=== PATIENT | male | born 1970 | race Caucasian/White ===

== ENCOUNTER 2017-12-07 07:30 | Inpatient (IN) | payer OTHER ==
[~2017-12-07 07:30] MED LIST: Buffered Lidocaine 0.9% SYRIN* 5 ML/SYR SYRINGE INTRADERM ONE; DiMENhydriNATE IV* 50 MG/ML VIAL IV PUSH PRN; Famotidine TAB* 20 MG PO ONE; Morphine INJ* 2 MG/ML 1 ML CARPUJECT IV PRN; Naloxone* 0.4 MG/ML 1 ML VIAL IV PRN; PROCHLORPERAZINE INJ 5 MG/ML 2 ML VIAL IV PRN; Scopolamine 1.5 mg* PATCH TRANSDERM ONE; fentaNYL* 50 MCG/ML 2 ML VIAL (100 MCG VIAL) IV PRN
[2017-12-07] MEDS ORDERED: Heparin VIAL(*) 5000 UNITS/ML VIAL (FIVE THOUSAND) ONE (07:56)
[2017-12-07] MEDS ORDERED: Scopolamine 1.5 mg* PATCH ONE (07:56)
[2017-12-07] MEDS ORDERED: Clindamycin 900 MG IVPREMIX(* 900 MG/50 ML SDV IV ONE (07:56)
[2017-12-07] MEDS ORDERED: Famotidine TAB* 20 MG ONE (07:56)
[2017-12-07] MEDS ORDERED: Ciprofloxacin 400MG IVPREMIX(* 400 MG/200 ML BAG ONE (07:56)
[2017-12-07] MEDS ORDERED: Atracurium* 10 MG/ML 10 ML VIAL ONE (08:29)
[2017-12-07] MEDS ORDERED: fentaNYL* 50 MCG/ML 5 ML VIAL (250 MCG VIAL) ONE (08:29)
[2017-12-07] MEDS ORDERED: Midazolam* 1 MG/ML 5 ML VIAL (5 MG) ONE (08:29)
[2017-12-07] MEDS ORDERED: Methylene Blue 0.5 %* 50 MG/10 ML AMP IV ONE (09:06)
[2017-12-07] MEDS ORDERED: Bupivacaine 0.25% SDV* 30 ML ONE (09:06)
[2017-12-07] MEDS ORDERED: PROCHLORPERAZINE INJ 5 MG/ML 2 ML VIAL ONE (09:52)
[2017-12-07] MEDS ORDERED: Glycopyrrolate IV* 0.2 MG/ML 1 ML VIAL ONE (09:52)
[2017-12-07] MEDS ORDERED: Propofol* 10 MG/ML 20 ML BTL IV PUSH ONE (09:52)
[2017-12-07] MEDS ORDERED: Ondansetron INJ* 2 MG/ML VIAL ONE (09:52)
[2017-12-07] MEDS ORDERED: Lidocaine 2% PF * 5 ML VIAL ONE (09:52)
[2017-12-07] MEDS ORDERED: Morphine INJ* 10 MG/ML 1 ML CARPUJECT ONE ×2 (09:58→11:47)
[2017-12-07] MEDS ORDERED: Metoprolol Tartrate IV* 1 MG/ML 5 ML VIAL ONE ×2 (10:58→13:08)
[2017-12-07] MEDS ORDERED: Labetalol IV* 5 MG/ML 20 ML VIAL ONE (10:58)
[2017-12-07] MEDS ORDERED: hydrALAZINE IV* 20 MG/ML VIAL ONE (11:08)
[2017-12-07] MEDS ORDERED: Desflurane* 240 ML INH ONE (13:29)
[2017-12-07] MEDS ORDERED: diPHENhydraMINE IV* 50 MG/ML 1 ml VIAL (BENADRYL) SLOW PUSH PRN (14:57)
--- NOTE | 2017-12-07 14:57 | BRIEFOPN ---
Brief Operative Note - Surgery Procedures: Procedures Pre-OP Diagnoses: Clinically severe obesity Post-op Diagnosis: same, hiatal hernia Procedure: Laparoscopic Colin an Y gastric bypass, repair of hiatal hernia Surgeon: Ovidio Asst: Viv Anethesia: EZ Orchard EBL: 100cc IVF: 2900cc LR Specimen: none Drains: #10 RASHMI Figueroa to gravity
[2017-12-07] MEDS ORDERED: Mometasone/Formoter 200/5 MDI INH PRN (15:01)
[2017-12-07] MEDS ORDERED: Dextrose 50% Syringe 50 ML* 25 GM/50 ML SYRINGE IV PUSH PRN (15:01)
[2017-12-07] MEDS ORDERED: Naloxone* 0.4 MG/ML 10 ML VIAL ONE (15:07)
[2017-12-07] MEDS ORDERED: Albuterol 2.5 MG/3 ML NEB.SOL* (0.083%) ONE (15:11)
[2017-12-07] MEDS ORDERED: fentaNYL* 50 MCG/ML 2 ML VIAL (100 MCG VIAL) ONE (15:25)
[2017-12-07] MEDS: Ketorolac INJ* 30 MG/ML 1 ML VIAL IV PRN (17:53)
[2017-12-07] MEDS: Insulin LISPRO* 1 UNITS UNIT SUBCUT SCH ×2 (19:32→19:41)
--- NOTE | 2017-12-07 19:43 | OP ---
CC: Dr. Francisco Mcc[facility], [facility] OPERATIVE REPORT: DATE OF OPERATION: 12/07/17 DATE OF : 66 SURGEON: Derick Nolan MD SOCIOLOGY ADJUNCT INSTRUCTOR: SERENA Moreno ANESTHESIOLOGIST: Marcial Prasad MD ANESTHESIA: General. PRE-OP DIAGNOSES: 1. Clinically severe obesity. 2. Type 2 diabetes. 3. Hypertension. 4. Obstructive sleep apnea. 5. Gastroesophageal reflux disease. POST-OP DIAGNOSES: 1. Clinically severe obesity. 2. Type 2 diabetes. 3. Hypertension. 4. Obstructive sleep apnea. 5. Gastroesophageal reflux disease. 6. Hiatal hernia. OPERATIVE PROCEDURE: Laparoscopic Colin-en-Y gastric bypass procedure, lysis of adhesions, repair of hiatal hernia. ESTIMATED BLOOD LOSS: 100 cc. SPECIMEN: None. IV FLUIDS: Crystalloids, 2800. URINE OUTPUT: Via Figueroa over 300 cc. DRAINS: A #10 RASHMI drain left at the gastrojejunostomy. DESCRIPTION OF PROCEDURE: The patient was identified in the preoperative area, brought to the OR, pl aced on the operating table in supine position. Preoperative antibiotics were given, sequential comp ression devices were placed on bilateral lower extremities. General anesthesia was induced. The pat ient's abdomen was prepped and draped in a standard surgical fashion. A time-out was performed. A subcostal incision made on the left upper quadrant just at mid clavicular line 2 fingerbreadths bel ow the ribcage. This was deepened down the anterior fascia, which was elevated and a Veress needle w as inserted into the abdominal cavity, which was then allowed to insufflate to a pressure of 15 mmHg. We then next placed a 12-mm trocar through this site and camera was inserted. Review of the abdome n showed no evidence of injury from the trocar insertion or the Veress needle. We did see omental ad hesions to the anterior abdominal wall, where the patient underwent umbilical hernia repair and resec tion of the hernia as an infant. A 5-mm trocar was then placed in the left lateral quadrant and both blunt and sharp dissection was utilized to take down these attachments to better visualize the right side of the abdomen. Additional trocars were then placed in the following positions: A 12-mm along the upper midline, a 1 2 mm at the right upper quadrant, and 5 mm in the right upper quadrant. Attention was turned to the abdomen. The omentum was reflected superiorly. Transverse colon identifi ed. This was invested in a significant amount of adipose tissue, but we were able to identify the li gament of Treitz. The small bowel at this site was grasped and we counted off antegrade 50 cm. The small bowel was resected at this portion that will become the biliopancreatic limb, underwent cauteri zation to create an enterotomy. Next, the distal portion of this transected area was grasped and we ran antegrade throughout the cour se of the small bowel to ensure we were in the appropriate positioning given the patient's history of abdominal surgery as a 9-day-old, appeared intact. We did not see any rotation of the intestine. W e then came back to our initial staple line. We counted off 100 cm and created another enterotomy an d created jejunojejunostomy with a 60-mm ramírez FLORENTINO stapling device. The common defect was closed with interrupted 2-0 silk sutures in standard fashion and we closed the defect with similar sutures. Next, the table was placed in a reverse Trendelenburg. Subxiphoid incision was made and the Nathanso n retractor was inserted through this incision and the liver was retracted anterior into the right. This exposed the gastroesophageal fat pad, which extended into a hiatal hernia. We grasped this fat pad and dissected it free taking it with LigaSure device. We were able to reduce the stomach into th e abdomen and most of the contents of the hernia were proximal stomach and significant amount of fat pad which was dissected free. So, we removed but not sent for specimen. Next, we identified the left melo. We took short gastrics at this superior aspect to better expose t his crura. We extended our incision over the crura until we identified the right side as well. The pars flaccida was opened up and dissection was performed in standard fashion to expose this. A windo w was made at the posterior aspect of the stomach and a Janeth drain was applied in this. This gave us ability to grasp the stomach and bring it inferiorly. We took down the sac off the left side of the abdomen and then we were able to clear off the posterio r attachments to identify as best the defect. Approximately 4-cm 2 posterior stitches were placed us ing #1 Ti-Cron sutures. We did this without placing bougie. Next, the retrogastric tunnel was made along the lesser curvature. A 45-mm ramírez FLORENTINO stapling device w as fired at this. Two additional 60-mm FLORENTINO stapling devices were fired to create the stomach pouch. This was a short pouch. We just took the first staple line more laterally before we came in toward the crura. We did this while the Josr tube was into the stomach pouch to assure the sizing. Next, the small bowel Colin limb was identified. It was grasped and brought up towards the gastric po uch. We decided to split the omentum to allow for better positioning. This was performed with LigaS ure device. Once this omentum was split, we then brought the Colin limb up to the gastric pouch again and then waqar regina stay sutures with 2-0 silk sutures using 4 in all. Over the Josr tube, a gastrotomy was made an d an enterotomy was additionally made. A 30-mm ramírez FLORENTINO stapling device was used to mate these. This was fired approximately 2.5 cm of the device. We then closed the common defect with 3-0 silk suture s in a figure-of-8 fashion. Next, the Josr tube was passed through the anastomosis. This passed easily. We clamped the bowel d istally and performed a methylene blue dye test distending the proximal Colin limb with the blue dye. We backed out the Josr tube into the stomach pouch. No blue dye was appreciated after placing a ga uze behind it. We also placed the gauze up by the proximal stomach where we had performed the hiatal hernia dissection and there was no evidence of blue dye at this site either. The Josr tube was the n removed. We placed a #10 RASHMI drain into the abdomen and brought out through the left lateral most p ort site and sutured to the skin with 3-0 Surgipro sutures. This lied right on top of the gastric ed ge. We did also pull some of the gastric fat pad that had been in the hernia sac and sutured this to the edge of the cut end of the proximal Colin limb at its initial staple line. This placed this fat pad clearly over the anastomosis. The RASHMI drain was placed within it though. The Leann retractor was removed. The abdomen was placed back to the neutral. There was some blood in the abdomen, but this was suctioned off and no active bleeding was encountered. No enteric contents were encountered. We appreciated the jejunostomy again and it appeared intact, and we allowed the abdomen to collapse . Trocars were removed under direct vision and aside from the RASHMI exit site, all the incisions were r eapproximated with 4-0 Monocryl subcuticular sutures followed by sterile dressing. The patient was w oken up in the OR and transferred to the PACU in stable condition. The patient was returned to the r ecovery room. [id number]/[facility] #: [id number]
[2017-12-07] MEDS ORDERED: NS 0.9% 1000 ML* 1,000 ML IV ONE (19:55)
[2017-12-07] MEDS: Famotidine IV* 10 MG/ML 2 ML (20 mg) IV SLOW PU SCH (20:08)
[2017-12-07] MEDS: LR @ 150 MLS/HR IV SCH (21:29)
[2017-12-07] MEDS: Heparin VIAL(*) 5000 UNITS/ML VIAL (FIVE THOUSAND) SUBCUT SCH (22:17)
[2017-12-07] MEDS: Morphine VIAL* 4 MG/ML VIAL (1 ml vial) IV PRN (22:31)
[2017-12-08] MEDS: Insulin LISPRO* 1 UNITS UNIT SUBCUT SCH ×4 (00:56→18:07)
[2017-12-08] MEDS: Ketorolac INJ* 30 MG/ML 1 ML VIAL IV PRN ×4 (03:29→23:31)
[2017-12-08] MEDS: LR @ 150 MLS/HR IV SCH ×2 (03:36→11:31)
[2017-12-08] MEDS: Morphine VIAL* 4 MG/ML VIAL (1 ml vial) IV PRN (06:26)
[2017-12-08] MEDS: Heparin VIAL(*) 5000 UNITS/ML VIAL (FIVE THOUSAND) SUBCUT SCH ×3 (06:31→20:47)
[2017-12-08 06:45] LABS: ABS Basophils 0 10^3/ul (0-0.2); ABS Eosinophils 0.1 10^3/ul (0-0.6); ABS Lymphocytes 1.7 10^3/ul (1.0-4.8); ABS Monocytes 0.9 10^3/ul (0-0.8); ABS Neutrophils 7.8 10^3/ul (1.5-7.7); ABS Nucleated RBC 0 10^3/ul; Eosinophil % 0.9 % (0-6); Hematocrit 36 % (42-52); Hemoglobin 12.3 g/dl (14.0-18.0); Lymphocyte % 16.6 % (25-47); Mean Corpuscular HGB Conc 35 g/dl (31-36); Mean Corpuscular Hemoglobin 31 pg (27-31); Mean Corpuscular Volume 89 fL (80-94); Mean Platelet Volume 8.6 um3 (7.4-10.4); Nucleated Red Blood Cells % 0; Platelet Count 176 10^3/ul (150-450); Red Blood Count 4.01 10^6/ul (4.0-5.4); Red Cell Distribution Width 14 % (10.5-15); White Blood Count 10.5 10^3/ul (3.5-10.8)
[2017-12-08 07:10] LABS: EGFR Non-African American 84.3 (>60)
--- NOTE | 2017-12-08 08:28 | PN ---
Progress Note - Progress Note Date of Service: 12/08/17 SOAP: Subjective: Pt seen and examined. Feels well. Requiring O2 face mask abdo pain treated with narcotics Objective: af vss Tmax 101 Uo good lungs decr BS abdo: soft/ distended/ tender at epigastrum RASHMI serosang LUQ dressing bloody no calf tenderness labs noted Assessment: POD 1 rygb, ICU for respiratory care Plan: UGI trnasfer to floor d/c pollack strict I/Os
[2017-12-08] MEDS: Famotidine IV* 10 MG/ML 2 ML (20 mg) IV SLOW PU SCH ×2 (10:40→20:47)
--- NOTE | 2017-12-08 10:42 | RAD ---
INDICATION: Post Colin-en-Y gastric bypass and hiatal hernia repair. Assess for enteric leak. COMPARISON: April 05, 2017 TECHNIQUE: 0.3 minutes fluoroscopy. The patient swallowed Gastrografin in standing position. FINDINGS: Contrast passes from the esophagus to the gastric pouch and jejunal limb without delay. No enteric leak visualized. Suture lines extending LEFT lateral noted. Surgical drain in place. No hiatal hernia visualized. IMPRESSION: No evidence for enteric leak post Colin-en-Y gastric bypass. CPT II Codes: G9500
--- NOTE | 2017-12-08 11:28 | PN ---
Progress Note - Progress Note Date of Service: 12/08/17 Note: Subjective: Mr. Arvizu is POD#1 from a hiatal hernia repair and serenity-en-y. Doing well with minimal pain at this time. Expressed to me that he was thirsty, and nurse did give him approximately 3 ounces of water prior to my interview and exam. Denies N/V. Figueroa was d/c this morning and pt. has not urinated quite yet. Has done minimal ambulation but plans to do more today. Pt. denies fevers, chills, CP, palpitations, coughing, wheezing, SOB. Current Medications Hydrocodone Bitart/Acetaminophen (Nortab 7.5/325 Liq*) 15 ml PO Q6H PRN PRN Reason: PAIN Dextrose (D50w Syringe 50 Ml*) 12.5 gm IV PUSH .FOR FS < 60 - SS PRN PRN Reason: FS < 60 Diphenhydramine HCl (Benadryl Iv*) 25 mg SLOW PUSH Q6H PRN PRN Reason: ITCHING Famotidine (Pepcid Iv*) 20 mg IV SLOW PU BID BAYRON Last Admin: 12/08/17 10:40 Dose: 20 mg Heparin Sodium (Porcine) (Heparin Vial(*)) 5,000 units SUBCUT Q8HR BAYRON Last Admin: 12/08/17 06:31 Dose: 5,000 units Potassium Chloride/Dextrose (D5w 1/2 Ns Kcl 20 Meq 1000 Ml*) 1,000 mls @ 125 mls/hr IV PER RATE BAYRON Lactated Ringer's (Lactated Ringers 1000 Ml Bag*) 1,000 mls @ 150 mls/hr IV PER RATE BAYRON Stop: 12/08/17 15:00 Last Admin: 12/08/17 11:31 Dose: 150 mls/hr Insulin Human Lispro (Humalog*) 0 units SUBCUT Q6HR BAYRON PRN Reason: Protocol Last Admin: 12/08/17 06:31 Dose: 2 units Ketorolac Tromethamine (Toradol Inj*) 30 mg IV Q6H PRN PRN Reason: PAIN Stop: 12/09/17 14:59 Last Admin: 12/08/17 10:40 Dose: 30 mg Mometasone Furoate/Formoterol Fumar (Dulera 200/5 Mdi*) 2 puff INH BID PRN; Protocol PRN Reason: DIFFICULTY BREATHING Last Admin: 12/07/17 21:02 Dose: 2 puff Morphine Sulfate (Morphine Vial*) 3 mg IV Q5M PRN PRN Reason: PAIN - SEVERE Last Admin: 12/08/17 06:26 Dose: 3 mg Pharmacy Profile Note (Scopolamine Patch Remove*) 1 note PATCH OFF ONCE ONE Stop: 12/10/17 06:01 Objective: Vital Signs - 8 hr 12/08/17 12/08/17 12/08/17 03:48 04:00 04:01 Temperature 99.2 F Pulse Rate 88 85 Respiratory 15 17 Rate Blood Pressure 115/70 (mmHg) O2 Sat by Pulse 93 91 95 Oximetry 12/08/17 12/08/17 12/08/17 05:00 05:01 06:00 Temperature Pulse Rate 83 91 88 Respiratory 16 18 22 Rate Blood Pressure 105/74 114/72 (mmHg) O2 Sat by Pulse 92 95 95 Oximetry 12/08/17 12/08/17 12/08/17 06:26 07:00 08:00 Temperature 99.2 F Pulse Rate 83 Respiratory 26 14 Rate Blood Pressure (mmHg) O2 Sat by Pulse 95 Oximetry General: Pleasant, sitting up in bed in NAD. CV: RRR w/o MRG. Resp: CTAB w/o RRW. GI: Abdomen is soft, non-distended and is minimally tender to light palpation. BS throughout. Extremities: w/o edema Assessment & Plan: Mr. Arvizu is POD#1 from a hiatal hernia repair and serenity-en- y. Doing well. Will likely begin clear liquids today. Encourage ambulation.
[2017-12-08] MEDS: HYDROcodone/ACET. 7.5/325 LIQ* 15 ML UDC PO PRN ×2 (14:50→20:45)
[2017-12-08] MEDS: D5W 1/2 NS KCl 20 Meq 1000 ML* 1,000 ML IV SCH ×2 (14:54→23:03)
[2017-12-09] MEDS: Insulin LISPRO* 1 UNITS UNIT SUBCUT SCH ×3 (00:31→12:15)
[2017-12-09] MEDS: HYDROcodone/ACET. 7.5/325 LIQ* 15 ML UDC PO PRN ×2 (03:29→09:50)
[2017-12-09] MEDS: Heparin VIAL(*) 5000 UNITS/ML VIAL (FIVE THOUSAND) SUBCUT SCH (06:15)
[2017-12-09] MEDS: Ketorolac INJ* 30 MG/ML 1 ML VIAL IV PRN (06:28)
[2017-12-09] MEDS: D5W 1/2 NS KCl 20 Meq 1000 ML* 1,000 ML IV SCH (06:30)
[2017-12-09] MEDS: Famotidine IV* 10 MG/ML 2 ML (20 mg) IV SLOW PU SCH (09:50)
[2017-12-09 13:37] VITALS: BP 117/77
[2017-12-10] MEDS ORDERED: Scopolamine PATCH Remove* 1 NOTE MISC PATCH OFF ONE (06:00)
--- NOTE | 2017-12-14 12:33 | DS ---
CC: Dr. Francisco Mccarthy; [facility] Metabolic and Bariatric [facility] * DATE OF ADMISSION: 12/07/2017. DATE OF DISCHARGE: 12/09/2017. The patient is also known as Starr. HOSPITAL COURSE: Ms. Arvizu is a 47-year-old male transitioning to female who presented for same day surgery and underwent a laparoscopic gastric bypass procedure. At the time of surgery, the patient was noted to have a hiatal hernia. This was repaired as well. In the postoperative period, the patient remained on the Short Stay Surgical Unit with a RASHMI drain. Her diet was advanced on postoperative day one after undergoing a normal upper GI study. By postoperative day two, the patient was doing well and was ready for discharge home. I did discharge her with a RASHMI drain with planned follow-up at the [facility] for Metabolic and Bariatric Surgery office on the following week. The patient was given discharge instructions. [id number]/[facility] #: [id number] MTDD
== END 2017-12-09 12:25 | disposition home or self-care (01) | DRG 403 ==
LOC: AA 07:46 → EDSTATUS 10:00 → ICU 17:30 → SSU 12-08 14:12
PROVIDERS: ADMIT Surgery; ATTEND Surgery
PROC: 0BQT4ZZ Repair Diaphragm, Percutaneous Endoscopic Approach (ICD-10-PCS; 2017-12-07)
PROC: 0D164ZA Bypass Stomach to Jejunum, Percutaneous Endoscopic Approach (ICD-10-PCS; principal; 2017-12-07 09:30)
DX: E66.01 Morbid (severe) obesity due to excess calories (principal); E11.9 Type 2 diabetes mellitus without complications; I10 Essential (primary) hypertension; K44.9 Diaphragmatic hernia without obstruction or gangrene; K21.9 Gastro-esophageal reflux disease without esophagitis; J45.909 Unspecified asthma, uncomplicated; G47.33 Obstructive sleep apnea (adult) (pediatric); M54.9 Dorsalgia, unspecified; Z88.0 Allergy status to penicillin; Z80.8 Family history of malignant neoplasm of other organs or systems; Z83.3 Family history of diabetes mellitus; Z82.49 Family history of ischemic heart disease and other diseases of the circulatory system; Z72.89 Other problems related to lifestyle; Z87.891 Personal history of nicotine dependence; Z68.41 Body mass index [BMI] 40.0-44.9, adult
CPT/HCPCS: 36415; 74246; 80048; 85025; 87641; 94640; A9270-GY; C1776; J0360; J0744; J0780; J1644; J1885; J2250; J2270; J2310; J2405; J2704; J3010; J3490

== ENCOUNTER 2017-12-25 21:04 | Emergency (ER) | payer OTHER ==
[2017-12-25] MEDS ORDERED: oxyCODONE TAB* 5 MG TAB PO ONE (21:39)
--- NOTE | 2017-12-26 00:28 | ED ---
Tyler De Anda Gabriel, scribed for Handy Downey MD on 12/25/17 at 2141 . Abdominal Pain/Male - HPI Summary HPI Summary: This patient is a 47 year old M presenting to [facility] with a chief complaint of ABD pain after he lifted 40lbs of laundry this morning at 0930. Pt had hernia repair and gastric bypass 3 weeks ago. The patient rates the pain 5/10 in severity. Pt states he has no pain meds from the surgery left. Hx DM. - History of Current Complaint Chief Complaint: EDAbdPain Stated Complaint: ABD PAIN Time Seen by Provider: 12/25/17 21:34 Hx Obtained From: Patient Onset/Duration: Lasting Hours, Still Present Timing: Constant Severity Initially: Moderate Severity Currently: Moderate Pain Intensity: 5 Pain Scale Used: 0-10 Numeric Location: Diffuse Radiates: No Associated Signs And Symptoms: Positive: Negative - fever - Allergies/Home Medications Allergies/Adverse Reactions: Allergies Allergy/AdvReac Type Severity Reaction Status Date / Time Penicillins Allergy Swelling Verified 12/25/17 21:10 PMH/Surg Hx/FS Hx/Imm Hx Endocrine/Hematology History: Reports: Hx Blood Disorders - familial polycythemia, Hx Diabetes - TYPE II- ORAL MEDICATION FOR Cardiovascular History: Reports: Hx Hypertension - ON MEDICATION FOR Denies: Hx Pacemaker/ICD Respiratory History: Reports: Hx Asthma, Hx Sleep Apnea - home machine GI History: Reports: Hx Gastroesophageal Reflux Disease - ROUTINE MEDICATION FOR Musculoskeletal History: Reports: Hx Back Problems, Other Musculoskeletal History - C4-5 BONE SPUR- HAD SURGERY FOR-10+YEARS AGO Denies: Hx Rheumatoid Arthritis, Hx Osteoporosis Sensory History: Reports: Hx Contacts or Glasses Denies: Hx Hearing Aid Opthamlomology History: Reports: Hx Contacts or Glasses Psychiatric History: Reports: Hx Substance Abuse - crack, quit 30 years agof - Surgical History Surgery Procedure, Year, and Place: neck surgery. "umbillicus was removed" d/t hernia surgery. Hx Anesthesia Reactions: Yes - DIZZINESS AND LIGHTHEADED Infectious Disease History: No Infectious Disease History: Denies: History Other Infectious Disease, Traveled Outside the [place] in Last 30 Days - Family History Known Family History: Positive: Blood Disorder Negative: Respiratory Disease - Social History Alcohol Use: Rare Substance Use Type: Reports: None Substance Use Comment - Amount & Last Used: hx of crack use 30 years ago Smoking Status (MU): Former Smoker Amount Used/How Often: 2 PPD X 30 YEARS Have You Smoked in the Last Year: No Review of Systems Negative: Fever Positive: Abdominal Pain All Other Systems Reviewed And Are Negative: Yes Physical Exam - Summary Physical Exam Summary: Appearance: Well-appearing, Well-nourished, lying in bed comfortably Skin: Warm, dry, no obvious rash, incisions on the ABD that are healing well Eyes: sclera anicteric, no conjunctiva pallor, ENT: mucous membranes moist, pharynx appears normal, Neck: Supple, nontender Respiratory: Clear to auscultation, no signs of respiratory distress Cardiovascular: Normal S1, S2. No murmurs. Normal distal pulses in tibial and radial bilaterally. Abdomen: Soft, nontender, normal active bowel sounds present, no hernia felt. Musculoskeletal: Normal, Strength/ROM Intact Neurological: A&Ox3, awake and alert, mentation is normal, speech is fluent and appropriate Psychiatric: affect is normal, does not appearing anxious or depressed Triage Information Reviewed: Yes Vital Signs On Initial Exam: Initial Vitals Temp Pulse Resp BP Pulse Ox 98.4 F 70 20 130/80 97 12/25/17 21:06 12/25/17 21:06 12/25/17 21:06 12/25/17 21:06 12/25/17 21:06 Vital Signs Reviewed: Yes Diagnostics - Vital Signs Vital Signs Temp Pulse Resp BP Pulse Ox 12/25/17 21:06 98.4 F 70 20 130/80 97 - Laboratory Lab Statement: Any lab studies that have been ordered have been reviewed, and results considered in the medical decision making process. Re-Evaluation - Re-Evaluation First Eval Re-Evaluation Time: 00:16 Change: Improved Comment: The pt is pain free and his ABD in non-tender. Abdominal Pain Fem Course/Dx - Course Assessment/Plan: Pt feeling better. He is quite certain of temporal relationship of pain with lifting heavy load of laundry. Pain well circumscribed to area of recent surgery. Doubt any intraabdominal process. - Diagnoses Provider Diagnoses: Strain of abdominal wall Discharge - Sign-Out/Discharge Documenting (check all that apply): Discharge/Admit/Transfer - Discharge Plan Condition: Good Disposition: HOME Prescriptions: oxyCODONE TAB* [Roxycodone TAB 5 mg*] 5 mg PO Q4H PRN #10 tab MDD 20mg PRN Reason: Pain Referrals: Francisco Mccarthy MD [Primary Care Provider] - - Billing Disposition and Condition Condition: GOOD Disposition: HOME The documentation as recorded by the Tyler cardoza Gabriel accurately reflects the service I personally performed and the decisions made by me, Handy Downey MD.
[2017-12-26 00:33] VITALS: BP 125/85
== END 2017-12-26 00:35 | disposition home or self-care (01) ==
LOC: ED 21:04
DX: S39.011A Strain of muscle, fascia and tendon of abdomen, initial encounter (principal); X50.0XXA Overexertion from strenuous movement or load, initial encounter; Y93.E2 Activity, laundry; Y92.009 Unspecified place in unspecified non-institutional (private) residence as the place of occurrence of the external cause; Z98.84 Bariatric surgery status; E11.9 Type 2 diabetes mellitus without complications; Z79.84 Long term (current) use of oral hypoglycemic drugs; I10 Essential (primary) hypertension; J45.909 Unspecified asthma, uncomplicated; K21.9 Gastro-esophageal reflux disease without esophagitis; Z88.0 Allergy status to penicillin; Z87.891 Personal history of nicotine dependence
CPT/HCPCS: 99283; A9270-GY

== ENCOUNTER 2018-04-02 19:09 | Emergency (ER) | payer OTHER ==
[2018-04-02] MEDS ORDERED: Famotidine IV* 10 MG/ML 2 ML (20 mg) IV SLOW PU ONE (19:15)
[2018-04-02] MEDS ORDERED: methylPREDNISolone 125 MG* 2 ML VIAL IV ONE (19:15)
[2018-04-02] MEDS ORDERED: diPHENhydraMINE IV* 50 MG/ML 1 ml VIAL (BENADRYL) IV ONE (19:15)
[2018-04-02] MEDS ORDERED: diPHENhydraMINE PO* 25 MG PO ONE (21:27)
--- NOTE | 2018-04-02 21:32 | ED ---
Allergic Reaction/Systemic - HPI Summary HPI Summary: 48-year-old male presents with potential allergic reaction today. He got stung multiple times on his hand. He states that it happened a couple hours ago. He said been having increasing edema to his right hand. He also been having hives across his chest. He denies any chest pain or shortness breath. No abdominal pain. No sore throat. No difficulty swallowing. No nausea and vomiting. Has never had this reaction before. Has history of high blood pressure. - History of Current Complaint Chief Complaint: EDAllergicReaction Time Seen by Provider: 04/02/18 19:15 Pain Intensity: 3 - Allergies/Home Medications Allergies/Adverse Reactions: Allergies Allergy/AdvReac Type Severity Reaction Status Date / Time Penicillins Allergy Swelling Verified 04/02/18 19:12 PMH/Surg Hx/FS Hx/Imm Hx Endocrine/Hematology History: Reports: Hx Blood Disorders - familial polycythemia, Hx Diabetes - TYPE II- ORAL MEDICATION FOR Cardiovascular History: Reports: Hx Hypertension - ON MEDICATION FOR Denies: Hx Pacemaker/ICD Respiratory History: Reports: Hx Asthma, Hx Sleep Apnea - home machine GI History: Reports: Hx Gastroesophageal Reflux Disease - ROUTINE MEDICATION FOR Musculoskeletal History: Reports: Hx Back Problems, Other Musculoskeletal History - C4-5 BONE SPUR- HAD SURGERY FOR-10+YEARS AGO Denies: Hx Rheumatoid Arthritis, Hx Osteoporosis Sensory History: Reports: Hx Contacts or Glasses Denies: Hx Hearing Aid Opthamlomology History: Reports: Hx Contacts or Glasses Psychiatric History: Reports: Hx Substance Abuse - crack, quit 30 years agof - Surgical History Surgery Procedure, Year, and Place: neck surgery. "umbillicus was removed" d/t hernia surgery. Hx Anesthesia Reactions: Yes - DIZZINESS AND LIGHTHEADED Infectious Disease History: No Infectious Disease History: Denies: History Other Infectious Disease, Traveled Outside the [place] in Last 30 Days - Family History Known Family History: Positive: Blood Disorder Negative: Respiratory Disease - Social History Alcohol Use: Rare Substance Use Type: Reports: None Substance Use Comment - Amount & Last Used: hx of crack use 30 years ago Smoking Status (MU): Former Smoker Amount Used/How Often: 2 PPD X 30 YEARS Have You Smoked in the Last Year: No Review of Systems Negative: Fever Negative: Chest Pain Negative: Shortness Of Breath Positive: Rash All Other Systems Reviewed And Are Negative: Yes Physical Exam Triage Information Reviewed: Yes Vital Signs On Initial Exam: Initial Vitals Temp Pulse Resp BP Pulse Ox 97.7 F 70 14 114/79 98 04/02/18 19:11 04/02/18 19:11 04/02/18 19:11 04/02/18 19:11 04/02/18 19:11 Vital Signs Reviewed: Yes Appearance: Positive: Well-Appearing Skin: Positive: Warm, Dry, Other - urticaria across chest Head/Face: Positive: Normal Head/Face Inspection Eyes: Positive: Normal, EOMI, JESUS, Conjunctiva Clear ENT: Positive: Normal ENT inspection, Pharynx normal, TMs normal Respiratory/Lung Sounds: Positive: Clear to Auscultation, Breath Sounds Present Cardiovascular: Positive: Normal, RRR Abdomen Description: Positive: Nontender, Soft Bowel Sounds: Positive: Present Musculoskeletal: Positive: Edema Right - hand Neurological: Positive: Normal Psychiatric: Positive: Normal Diagnostics - Vital Signs Vital Signs Temp Pulse Resp BP Pulse Ox 04/02/18 19:11 97.7 F 70 14 114/79 98 - Laboratory Lab Statement: Any lab studies that have been ordered have been reviewed, and results considered in the medical decision making process. Re-Evaluation - Re-Evaluation First Eval Re-Evaluation Time: 21:30 Change: Improved Comment: less hives and edema. lungs CTA. Allergic Reaction Course/Dx - Course Course Of Treatment: 48-year-old male presents with potential allergic reaction today. He got stung multiple times on his hand. He states that it happened a couple hours ago. He said been having increasing edema to his right hand. He also been having hives across his chest. He denies any chest pain or shortness breath. No abdominal pain. No sore throat. No difficulty swallowing. No nausea and vomiting. Has never had this reaction before. Has history of high blood pressure. on exam has urticaria across chest. edema to right hand. gave steriod, pepcid, and benadryl and rash improved. will discharge with same. patient understand and agrees with plan. - Diagnoses Differential Diagnosis/HQI/PQRI: Positive: Anaphylaxis, Local Allergic Reaction , Urticaria Provider Diagnoses: Urticaria Discharge - Sign-Out/Discharge Documenting (check all that apply): Patient Departure - Discharge Plan Condition: Good Disposition: HOME Prescriptions: Famotidine TAB* [Pepcid 20 MG TAB*] 20 mg PO BID #8 tab hydrOXYzine HCL TAB* [Atarax 25 MG TAB*] 25 mg PO QID PRN #12 tab PRN Reason: Hives predniSONE TAB* [Deltasone TAB*] 50 mg PO DAILY #4 tab Patient Education Materials: Urticaria (ED) Referrals: Francisco Mccarthy MD [Primary Care Provider] - Additional Instructions: Take hydroxyzine every 6 hours for next 24 hours Take Pepcid twice a day for 5 days Take steroid once a day for 4 days starting tomorrow Return to ED if shortness of breath, chest pain, or if develop any new or worsening symptoms - Billing Disposition and Condition Condition: GOOD Disposition: Home
[2018-04-02 22:19] VITALS: BP 114/65
== END 2018-04-02 22:16 | disposition home or self-care (01) ==
LOC: ED 19:09
DX: T63.441A Toxic effect of venom of bees, accidental (unintentional), initial encounter (principal); L50.9 Urticaria, unspecified; R60.0 Localized edema; Y92.9 Unspecified place or not applicable; E11.9 Type 2 diabetes mellitus without complications; Z79.84 Long term (current) use of oral hypoglycemic drugs; K21.9 Gastro-esophageal reflux disease without esophagitis; Z88.0 Allergy status to penicillin; Z87.891 Personal history of nicotine dependence
CPT/HCPCS: 96374; 96375; 99282; A9270-GY; J1200; J2930

== ENCOUNTER 2018-11-05 13:33 | Emergency (ER) | payer OTHER ==
--- OUTSIDE RECORDS SUMMARY | 2018-11-05 13:46 | XMS REPORT | Continuity of Care Document ---
:1970 Author Organization [facility] Address [address], [place] [id number] Phone Care Team Providers Name Role Phone Marie Solorio NP Unavailable Unavailable Allergies, Adverse Reactions, Alerts Substance Reaction Status Penicillins Anaphylaxis Active Medications Medication Instructions Dosage Effective Status Comments Dates (start - stop) PROGESTERONE 200 TAKE 1 CAPSULE BY - Active MG CAPSULE MOUTH EVERYDAY AT BEDTIME Truvada 200 TAKE 1 TABLET BY - Active mg-300 mg tablet MOUTH EVERY DAY ESTRADIOL 2 MG TAKE 1 TABLET BY 1 Tablet - Active TABLET SUBLINGUALLY 2 TIMES EVERY DAY finasteride 5 mg take 1 tablet by 5 MG - Active tablet oral route every day Vitamin B-1 250 - Active mg tablet VITAMIN B-12 Not Available - Active (unknown strength) LISINOPRIL-HYDROC Not Available - Active HLOROTHIAZIDE (unknown strength) Prometrium 200 mg take 1 capsule by - No Longer Please let pt capsule oral route daily Active know that at bedtime insurance didn't want to cover two 100 mg tabs daily, so we are switching rx to one 200 mg tab at bedtime. Problems Condition Effective Dates Clinical Status Comments (start - stop) Body mass index (BMI) - 40.0-44.9, adult Transsexualism Other custodial (current) 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 Encntr screen for infections w sexl mode of transmiss Encounter for screening for human immunodeficiency virus Human immunodeficiency virus [HIV] counseling Encounter for oth screening for malignant neoplasm of breast Transsexualism Endocrine disorder, unspecified Encounter for ot general cnsl and advice on contraception Encntr screen for infections w sexl mode of transmiss Human immunodeficiency virus - [HIV] counseling Encounter for screening for - human immunodeficiency virus Encounter for preprocedural laboratory examination Encntr screen for infections w sexl mode of transmiss Human immunodeficiency virus - [HIV] counseling Encntr screen for infections w sexl mode of transmiss Other ocean transportation intermediary (current) 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 Encounter for screening for - human immunodeficiency virus Hyperkalemia Transsexualism Human immunodeficiency virus - [HIV] counseling Encntr screen for infections w sexl mode of transmiss Encounter for screening for - human immunodeficiency virus Other custodial (current) 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 Human immunodeficiency virus - [HIV] counseling Other custodial (current) 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 Encntr screen for infections w sexl mode of transmiss Encounter for screening for - human immunodeficiency virus Endocrine disorder, unspecified Transsexualism Encntr screen for infections w sexl mode of transmiss Encounter for preprocedural laboratory examination Human immunodeficiency virus - [HIV] counseling Encounter for screening for human immunodeficiency virus Encntr screen for infections w sexl mode of transmiss Encounter for screening for other viral diseases Transsexualism Endocrine disorder, unspecified Human immunodeficiency virus - [HIV] counseling Encounter for screening for - human immunodeficiency virus Transsexualism Encntr screen for infections w sexl mode of transmiss Endocrine disorder, unspecified Transsexualism Transsexualism Dietary counseling and surveillance Other specified counseling 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 Endocrine disorder, unspecified Elevated blood-pressure reading, w/o diagnosis of htn Body mass index (BMI) 40.0-44.9, adult Transsexualism Endocrine disorder, unspecified Elevated blood-pressure reading, w/o diagnosis of htn High risk sexual behavior - Active On PrEP/Started 06/2017 Btom-se-cacaks transsexual - Active Procedures Procedure Date No information Results Test Name Date and Time Measure Units Reference Range Abnormal Flag Status Comments No information Advance Directives Directive Yes / No Effective Date File Name No information Encounters Encounter Practice Location Reason(s) Diagnoses Date Provider Providers Description For Visit Copied on Encounter [facility] Marie. [address], [place], [facility], [address] [address]. [address] tel:[phone] , [place], [address] [place], [id number], [place] tel:[phone] [facility] [place] Marie. [address], [place], [place], [address]. [address] tel:[phone] , [place], [address] [place], [id number], [place] tel:[phone] [facility] Transsexualism Familia Mojica. Referring [facility] [place] [address] Provider: [address], [facility], [place], [address], [place], 620 [facility], [address] [place]. [address], [facility], [place], [id number], [address].Cons [place] ulting tel:[phone] Provider: [id number] NURSE [place] [facility]. [facility] Other ocean transportation intermediary Familia Mojica. Referring [facility] [place] (current) drug [address] [facility], [facility], [place], [address], [place], 620 [place], 620 infections w [place]. [address] sexl mode of , [facility], transmissEncount [place], [address]. [id number], for human [place] immunodeficiency tel:[phone] virusman [phone] immunodeficiency virus [HIV] counseling [facility] Familia Mojica. [facility] [place] [address] [facility], [place], [place], [address], [place], [address], [place], [place], [id number], [place] tel:[phone] [facility] [place] Milka. [address], [place], [place], [address]. [address] tel:[phone] St, [place], [address] [place], [id number], [place] tel:[phone] [facility] Encounter for [place] [facility]erring [facility] [place] oth screening Nicolette. 620 Provider: Hailey for malignant [address], [place] neoplasm [place], [place] J, [place], 620 breast [address], [place]. [address] tel:[phone] [address], St, [place], [address] [place], [address]. [id number], tel:[phone] tel:[phone] [facility] TranssexualismEn Familia Mojica. [facility]erring [facility] [place] docrine [address] Provider: Hailey disorder, [address], [place], [place], [address], [place], 620 [place], 620 nter for oth [place]. [address] general cnsl and St, St, [place], [place], [place], [address]. [id number], ntr screen for [place] infections w tel:[phone] sexl mode of [phone] transmiss [facility] Familia Mojica. [facility] [place] [address], [place], [place], [address], [place], [address], [place], [place], [id number], [place] tel:[phone] [facility] Human May- Osmin Referring [facility] [place] immunodeficiency 201 Marie. 620 W Provider: [facility] virus [HIV] [address], [place] counselingEncoun [place], Raphaelidi [facility], [address] [place] [address]. s, [address] screening for tel:[phone], St, [place], human [address] [place], [place], [address]. [id number], virusEncounter tel:[phone] [place] for [phone] tel:[phone] preprocedural [phone] laboratory examinationEncnt r screen for infections w sexl mode of transmiss [facility] Human Feb-2 [place]-Hem Referring [facility] [place] immunodeficiency 4-201 juanita Sueane. Provider: [place] virus [HIV] 8 [address] Sueane [place] counselingEncntr , [place], [place]-H [facility], [address] [place], [address]. emmer, [address] infections w tel:[phone], [place] [address] [place], [place], transmissOther [place], [id number], [place], [address]. [place] (current) drug tel:+[phone] tel:[phone] therapyEncounter [phone] for screening for human immunodeficiency virus [facility] Hyperkalemia December- Borglum Referring [facility] [place] 2- [place]. 620 Provider: [address], [place], [place], [facility], [address], [place]. [address] tel:[phone], St, [place], [address] [place], [address]. [id number], tel:[phone] tel:[phone] [facility] Transsexualism December-1 Raphaelidis Referring [facility] [place] 1- Marie. [address] W Provider: [address], [place], [facility], [address]. s, [address] tel:[phone], St, [place], [address] [place], [address]. [id number], tel:[phone] tel:[phone] [facility] Human May-0 Raphaelidis Referring [facility] [place] immunodeficiency 4-201 Marie. 620 W Provider: [place] virus [HIV] [address], [place] counselingEncntr [place], [facility], 620 [place] [address]. s, [address] infections w tel:[phone], St, [place], [place] [address] [place], [place], [address]. [id number], er for screening tel:[phone] [place] for human [phone] tel:[phone] immunodeficiency [phone] virusOther custodial (current) 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 [facility] Human Familia Mojica. Referring [facility] [place] immunodeficiency [address] Provider: [facility] virus [HIV] [address] St, [place], [place], [address], [place], 620 [place], 620 ocean transportation intermediary [place]. [address] (current) drug St, St, [place], therapyEncntr [place], [address]. [id number], infections w [place] sexl mode of tel:[phone] transmissEncount [phone] er for screening for human immunodeficiency virus [facility] Endocrine Familia Mojica. Referring [facility] [place] disorder, [address] [facility], [place], [place], [address], [place], [place], 620 [place]. [address], St, [place], [place], [address]. [id number], [place] tel:[phone] [facility] Encntr screen Jun- Familia Mojica. [facility] [place] for infections w 0 [address] sexl mode of [address], [place], [place], [address], [place], [address], [place], [place], [id number], [place] tel:[phone] [facility] Encounter for Jun- Familia Mojica. Referring [facility] [place] preprocedural [address] Provider: [facility] laboratory [address], [place], [place], [address], [place], 620 [place], 620 immunodeficiency [place]. [address] virus [HIV] St, St, [place], counselingEncoun [place], [address]. [id number], screening for [place] human tel:[phone] immunodeficiency [phone] virusEncntr screen for infections w sexl mode of transmissEncount er for screening for other viral diseasesTranssex ualismEndocrine disorder, unspecified [facility] Familia Mojica. [facility] [place] [address], [place], [place], [address], [place], [address], [place], [place], [id number], [place] tel:[phone] [facility] Human May- [facility] [place] immunodeficiency -Febia. [address] virus [HIV] [address], [place] counselingEncoun [place], [facility], [address] [place] [address]. [address] screening for tel:[phone] St, [place], human [address] [place], immunodeficiency [id number], virusTranssexual [place] ismEncntr screen tel:[phone] for infections w [phone] sexl mode of transmiss [facility] Endocrine Feb- [place]. [facility] [place] disorder, [address] unspecifiedTrans [address], [place], [place], [address], [facility], 620 mass index (BMI) [place]. [address] 40.0-44.9, adult St, [place], [place], [id number], [place] tel:[phone] [facility] TranssexualismDi Nov- [facility] [place] etary counseling . [address], [place] surveillanceOthe [place], [place], [facility], 620 r specified [address]. [address] counseling tel:[phone] St, [place], [address] [place], [id number], [place] tel:[phone] [facility] Gender identity Apr-0 Borglum [facility] [place] disorder in [place]. [address] adolescence and [address], [place] adulthoodEndocri [place], [place], [facility], 620 ne disorder, [address], [place]. [address] unspecifiedEleva tel:[phone] St, [place], [place] [address] [place], blood-pressure [id number], reading, w/o [place] diagnosis of tel:[phone] htnBody mass [id number] index (BMI) 40.0-44.9, adult [facility] TranssexualismEn [facility] [place] docrine Febia. [address] disorder, [address], [place] unspecifiedEleva [place], [place], [facility], 620 payal [address]. [address] blood-pressure tel:[phone] Luis [place], [place], [place] [address] [place], diagnosis of htn [id number], [place] tel:[phone] Family History Family Member Diagnosis Age At Onset Mother Cancer, breast 66 Sister Substance abuse Father Brain cancer (Cause Of ) Immunizations Vaccine Date Status Comments No information Payers Payer name Insurance type Covered democrat ID Authorization(s) No information Social History Type Description Quantity Date Captured Comments Sex Male Vital Signs Date / Height Weight BMI Pulse Blood Temperature Respiratory Body Head BMI Pulse Inhaled Time: Rate Pressure Rate Surface Circumference percentile Ox Ox Area No information Chief Complaint And Reason For Visit No information Reason For Referral Reason For Referral No information Plan Of Treatment Date Type Action Status Goal Dietary management education, guidance, and counseling completed Goal Tobacco cessation counseling completed History Of Present Illness Encounter Date Complaint History Of Present Illness No information Functional Status Date Functional Assessment No information Medications Administered Medication Instructions Dosage Effective Dates (start - stop) Status Comments No information Instructions Date Instruction Additional Information Dietary management education, Related to Body mass index (BMI) guidance, and counseling 40.0-44.9, adult Assessments Type Assessment Date No information Goals Health Concern Goal Type Priority Status Date No information Medical Equipment Description Device Cucumber Device Identifier Effective Dates (start - stop ) Status No information Mental Status Date Cognitive Assessment No information Health Concerns Observation Date No information Concern Status Date No information
--- OUTSIDE RECORDS SUMMARY | 2018-11-05 13:46 | XMS REPORT | Continuity of Care Document ---
:1970 Author Organization [facility] Address [address], [place] [id number] Phone Care Team Providers Name Role Phone Marie Solorio NP Unavailable Unavailable Allergies, Adverse Reactions, Alerts Substance Reaction Status Penicillins Anaphylaxis Active Medications Medication Instructions Dosage Effective Status Comments Dates (start - stop) Truvada 200 TAKE 1 TABLET BY - Active mg-300 mg tablet MOUTH EVERY DAY Prometrium 200 take 1 capsule by - Active Please let pt mg capsule oral route daily know that at bedtime insurance didn't want to cover two 100 mg tabs daily, so we are switching rx to one 200 mg tab at bedtime. ESTRADIOL 2 MG TAKE 1 TABLET BY 1 Tablet - Active TABLET SUBLINGUALLY 2 TIMES EVERY DAY finasteride 5 mg take 1 tablet by 5 MG - Active tablet oral route every day Vitamin B-1 250 - Active mg tablet VITAMIN B-12 Not Available - Active (unknown strength) LISINOPRIL-HYDRO Not Available - Active CHLOROTHIAZIDE (unknown strength) Truvada 200 TAKE 1 TABLET BY - No Longer mg-300 mg tablet MOUTH EVERY DAY Active Problems Condition Effective Dates Clinical Status Comments (start - stop) Body mass index (BMI) - 40.0-44.9, adult Transsexualism Other salvage determiner (current) 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 Encntr screen for infections w sexl mode of transmiss Encounter for screening for human immunodeficiency virus Human immunodeficiency virus [HIV] counseling Encounter for oth screening for malignant neoplasm of breast Transsexualism Endocrine disorder, unspecified Encounter for oth general cnsl and advice on contraception Encntr screen for infections w sexl mode of transmiss Human immunodeficiency virus - [HIV] counseling Encounter for screening for - human immunodeficiency virus Encounter for preprocedural laboratory examination Encntr screen for infections w sexl mode of transmiss Human immunodeficiency virus - [HIV] counseling Encntr screen for infections w sexl mode of transmiss Other longterm (current) 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 Encounter for screening for - human immunodeficiency virus Hyperkalemia Transsexualism Human immunodeficiency virus - [HIV] counseling Encntr screen for infections w sexl mode of transmiss Encounter for screening for - human immunodeficiency virus Other longterm (current) 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 Human immunodeficiency virus - [HIV] counseling Other salvage determiner (current) 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 Encntr screen for infections [...] sexual behavior - Active On PrEP/Started 06/2017 [id number] transsexual - Active Procedures Procedure Date No information Results Test Name Date and Time Measure Units Reference Range Abnormal Flag Status Comments No information Advance Directives Directive Yes / No Effective Date File Name No information Encounters Encounter Practice Location Reason(s) Diagnoses Date Provider Providers Description For Visit Copied on Encounter [facility] [place] Marie. [address], [place], [place], [place], [address]. [address] tel:[phone] , [place], [address] [place], [id number], [place] tel:[phone] [facility] Transsexualism Familia Galina. [facility] [place] [address] Provider: [facility] 9 , [place], [place], [address], [place], [address] [place], [address] [place]. [address], St, [place], [place], [id number], [address].Cons [place] ulting tel:[phone] Provider: [id number] NURSE [place] [facility]. [facility] Other longterm Familia Felixa. [facility] [place] (current) drug [address] Provider: [facility] therapyEncntr 9 , [place], [place], [address], [place], [place], 620 infections w [place]. [address] sexl mode of St, , [place], transmissEncount [place], [place], [place], [address]. [id number], for human [place] immunodeficiency tel:[phone] [facility] [id number] [facility] virus [HIV] counseling [facility] Familia Galina. [facility] [place] [address], [place], [place], [address], [place], [address], [place], [place], [id number], [place] tel:[phone] [facility] Jun- [facility] [place] Milka. [address], [place], [place], [place], [address]. [address] tel:[phone] St, [place], [address] [place], [id number], [place] tel:[phone] [facility] Encounter for Jun- [place] [facility] Nicolette. 620 Provider: Southern for malignant [address], [place] neoplasm of [place], [place], [place] J, [place], [address] breast [address], [place]. [address] tel:[phone], St, [place], [address] [place], [address]. [id number], tel:[phone] tel:[phone] [facility] TranssexualismEn [place]. [facility] [place] docrine [address] Provider: [place] disorder, [address] St, [place], [place], [address], [place], 620 [place], 620 nter for oth [place]. [address] general cnsl and St, St, [place], advice on [place], [place], [place], [address]. [id number], ntr screen for [place] infections w tel:[phone] sexl mode of [phone] transmiss [facility] [place]. [facility] [place] [address], [place], [place], [address], [facility], [address], [place], [place], [id number], [place] tel:[phone] [facility] Human [place] Referring [facility] [place] immunodeficiency 5 Marie. 620 W Provider: [place] virus [HIV] [address], [place] counselingEncoun [place], [place], Raphaelidi [facility], [facility] [place] [address]. s, [address] screening for tel:[phone], St, [place], human [address] [place], [place], [address]. [id number], virusEncounter tel:[phone] [place] for [phone] tel:[phone] preprocedural [phone] laboratory examinationEncnt r screen for infections w sexl mode of transmiss [facility] Human Reaganreau Referring [facility] [place] immunodeficiency Sueane. 620 Provider: [place] virus [HIV] [address], [place] counselingEncntr [place], [place], [place], [facility], [facility] [place] [address]. [address] infections w tel:[phone], St, [place], [place] [address] [place], [place], [place], [address]. [id number], longterm tel:+[phone] [place] (current) drug [phone] tel:+ therapyEncounter [phone] for screening for human immunodeficiency virus [facility] Hyperkalemia December- Borglum Referring [facility] [place] 2- [place]. 620 Provider: Southern [address], [place], [place], Borg[place] [facility], [facility] [address], [place]. [address] tel:[phone], St, [place], [address] [place], [address]. [id number], tel:[phone] tel:[phone] [facility] Transsexualism Raphaelidis Referring [facility] [place] 1- [facility]. [address] W Provider: [address], [place], [place], [facility] [address]. s, [address] tel:+[address], St, [place], [address] [place], [address]. [id number], tel:+ [phone] tel: [phone] [facility] Human December-0 Raphaelidis Referring [facility] [place] immunodeficiency 4-201 Marie. 620 W Provider: [place] virus [HIV] [address], [place] counselingEncntr [place], [place], [facility] [place] [address]. s, [address] infections w tel:+[address], St, [place], [place] [address] [place], [place], [place], [address]. [id number], er for screening tel:[phone] [place] for human [phone] tel:+ immunodeficiency [phone] virusOther longterm (current) 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 [facility] Human [place]. Referring [facility] [place] immunodeficiency 2-201 [address] Provider: [place] virus [HIV] 8 St, [place], [place], [address], [place], Kasey [facility], 620 longterm [place]. W Minto W Minto (current) drug St, St, [place], therapyEncntr [place], [address]. [id number], infections w [place] sexl mode of tel:[phone] transmissEncount [phone] er for screening for human immunodeficiency virus [facility] Endocrine Familia Mojica. Referring [facility] [place] disorder, [address] [facility], [place], [place], [address], [place], [place], 620 [place]. [address], St, [place], [place], [address]. [id number], [place] tel:[phone] [facility] Encntr screen Jun-3 Familia Mojica. [facility] [place] for infections w 0 [address] sexl mode of [address], [place], [place], [address], [place], [address], [place], [place], [id number], [place] tel:[phone] [facility] Encounter for Jun- Familia Mojica. Referring [facility] [place] preprocedural [address] Provider: [facility] laboratory [address], [place], [place], [address], [place], [place], 620 immunodeficiency [place]. [address] virus [HIV] St, , [place], counselingEncoun [place], [place], [address]. [id number], screening for [place] human tel:[phone] immunodeficiency [phone] virusEncntr screen for infections w sexl mode of transmissEncount er for screening for other viral diseasesTranssex ualismEndocrine disorder, unspecified [facility] Oct-2 Familia Mojica. [facility] [place] 3- [address], [place], [place], [address], [place], [address], [place], [place], [id number], [place] tel:[phone] [facility] Human Oct- P[facility] [place] immunodeficiency 2- Milka. [address] virus [HIV] [address], [place] counselingEncoun [place], [place], [address] [place] [address]. [address] screening for tel:[phone] St, [place], human [address] [place], immunodeficiency [id number], virusTranssexual [place] ismEncntr screen tel:[phone] for infections w [phone] sexl mode of transmiss [facility] Endocrine Feb- [place]. [facility] [place] disorder, [address] unspecifiedTrans [address], [place], [place], [address], [place], 620 mass index (BMI) [place]. W Minto 40.0-44.9, adult St, [place], [place], [id number], [place] tel:[phone] [facility] TranssexualismDi P[facility]te [facility] [place] etary counseling Febia. [address], [place] surveillanceOthe [place], [place], [facility], 620 r specified [address]. [address] counseling tel:+[phone] St, [place], [address] [place], [id number], [place] tel:[phone] [facility] Gender identity Apr- Borglum [facility] [place] disorder in [place]. [address] adolescence and [address], [place] adulthoodEndocri [place], [place], [facility], 620 ne disorder, [address], [place]. [address] unspecifiedEleva tel:[phone] St, [place], [place] [address] [place], blood-pressure [id number], reading, w/o [place] diagnosis of tel:[phone] htnBody mass [id number] index (BMI) 40.0-44.9, adult [facility] TranssexualismEn P[facility]te [facility] [place] docrine Febia. [address] disorder, [address], [place] unspecifiedEleva [place], [place], [facility], 620 payal [address]. [address] blood-pressure tel:[phone] St, [place], reading, w/o [address] [place], diagnosis of htn [id number], [place] tel:[phone] Family History Family Member Diagnosis Age At Onset Mother Cancer, breast 66 Sister Substance abuse Father Brain cancer (Cause Of ) Immunizations Vaccine Date Status Comments No information Payers Payer name Insurance type Covered constitution party ID Authorization(s) No information Social History Type [...] Of Treatment Date Type Action Status Goal Tobacco cessation counseling completed Goal Dietary management education, guidance, and counseling completed History Of Present Illness Encounter [...] Date No information Medical Equipment Description Device Esbon Device Identifier Effective Dates (start - stop ) Status No information Mental Status Date Cognitive Assessment No information Health Concerns Observation Date No information Concern Status Date No information
--- OUTSIDE RECORDS SUMMARY | 2018-11-05 13:46 | XMS REPORT | Continuity of Care Document ---
:1970 External Reference #:[id number] Author Name Mira Mclaughlin Care Team Providers Name Role Phone Shahid Villeda III, MD Primary Care Physician Unavailable Payers Date Identification Numbers Payment Provider Subscriber Effective: Policy Number: [id number] [employer] Starr Arvizu 2017 Medicaid PayID: [id number] [address] [place] [id number] Expires: 2017 Policy Number: [employer] Starr Arvizu [id number] PayID: [id number] [address] [place] [id number] Advance Directives Description No Information Available Problems Date Description Provider Status Onset: 06/01/2018 Digestive symptom Kymberly Holguin NP Active Onset: 01/27/2018 Body mass index 30+ - obesity Felecia Maxwell DNP, RN, Active [employer] Onset: 05/23/2017 Obstructive sleep apnea Felecia Maxwell DNP, RN, Active syndrome [employer] Onset: 06/01/2018 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 Onset: 07/02/2017 Helicobacter-associated Sunil Sylvester MD Active gastritis Note: standard Prevpac generic sent into pharmacy Jul [address] Bland; ( had been Clotest negative 2010 just after course of unrelated antibiotic) Onset: 05/23/2017 Body mass index 40+ - Felecia Maxwell DNP, RN, Inactive severely obese [employer] Inactive: 01/27/2018 Family History Date Family Member(s) Observation Comments Father due to Brain Cancer () Mother Breast Cancer Social History Type Date Description Comments Sex Male Marital Status Single Lives With Alone Lives With 1 dog Occupation Currently Working Occupation [employer] Tobacco Use Start: Unknown End: Former Cigarette Smoker 35 years Unknown 2 Packs Daily Cigarette Use Quit - Age 41 Smoking Status Reviewed: 10/24/18 Former Cigarette Smoker 35 years 2 Packs Daily ETOH Use Drinks Alcoholic Beverages Occasionally Tobacco Use Start: Unknown End: Patient is a former Unknown smoker Recreational Drug Use Denies Drug Use Exercise Type/Frequency Exercises regularly 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 /0000 s day Delilah Villeda Symbicort Active Aerosol 160-4.5mc 6gm inhale 2 Shahid E. /0000 g/Act puffs twice a miladys Villeda M.D. Vitamin B1 Active Tablets 100mg 1 by mouth Unknown /0000 every day Vitamin B-12 Active Lozenges 500mcg 1 by mouth Unknown /0000 every day Vitamin D3 Active Tablets 2000Unit 1 by mouth Unknown / every day Breo Ellipta Active Aerosol 200-25mcg take 1 Unknown / /Inh inhaled daily Finasteride Active Tablets 5mg 30tab 1 by mouth Shahid E. /0000 s every day Delilah Villeda Cpap Mask And Active Device cpap supplies Unknown Supplies /0000 - headgear, cushion, tubing, filters, for sleep apnea dx 780.57 Travada Active 300mg qd Unknown / Progesterone Active Capsules 100mg one tablet by Unknown Micronized /0000 mouth every night at bedtime Multi Adult Active Chewtabs 2 by mouth Unknown Gummies /0000 every day Suprep Bowel 06/06 Hx Solution 17.5-3.13 1unit take Kymberly Prep Kit /2017 -1.6GM/17 s according to MARIKA Holguin - 7ML your 07/12 physician's /2017 instructions the day before your procedure. split the dose as directed. Spironolactone Hx Tablets 100mg 1 tab bid Unknown / - 07/24 Omeprazole Hx Capsules 40mg 1 tab bid Breiman, /0000 Jeromy Ascencio MD 05/10 Ventolin HFA Hx Aerosol 108(90Bas prn Breiman, /0000 e) Francisco - mcg/Act 07/24 Advair Diskus Hx Aerosol 250-50mcg qd Breiman, /0000 /Dose Jeromy Singh MD 07/24 Proventil HFA Hx Aerosol 108(90Bas Take 2 Puffs Unknown /0000 e) Every 4 Hours - mcg/Act as Needed 07/24 Truvada Hx Tablets 200-300mg 1 by mouth Unknown /0000 every day - 06/01 Jardiance Hx Tablets 10mg 30tab 1 by mouth Shahid E. /0000 s daily in the [place], - morning M.D. 06/01 Opurity Hx Tablets 1 a day Unknown /0000 - 07/24 Oxycodone HCL Hx Tablets 10mg Take 1 Tablet Unknown /0000 By Mouth - Every 4 To 6 06/04 Hours Needed For Breakthrough P Immunizations CPT Code Status Date Vaccine Reaction Lot # [id number] Given 05/10/2018 Pneumonia Vaccine Pt. tolerated well. [id number] Vital Signs Date Vital Result Comment 10/24/2018 8:57am Height 65.5 inches 5'5.50" Weight 177.12 lb Heart Rate 52 /min BP Systolic Sitting 112 mmHg Lue reg cuff BP Diastolic Sitting 70 mmHg Lue reg cuff Respiratory Rate 18 /min O2 % BldC Oximetry 98 % On Ra BMI (Body Mass Index) 29.0 kg/m2 07/25/2018 9:38am Height 65.5 inches 5'5.50" Weight 189.00 lb Heart Rate 64 /min BP Systolic Sitting 106 mmHg BP Diastolic Sitting 58 mmHg Respiratory Rate 14 /min O2 % BldC Oximetry 99 % BMI (Body Mass Index) 31.0 kg/m2 07/25/2018 9:35am Height 65.5 inches 5'5.50" 07/12/2018 9:08am Height 65.5 inches 5'5.50" Weight 190.00 lb Heart Rate 49 /min BP Systolic 106 mmHg BP Diastolic 62 mmHg Respiratory Rate 16 /min Body Temperature 97.7 F O2 % BldC Oximetry 99 % BMI (Body Mass Index) 31.1 kg/m2 06/01/2018 9:49am Height 65.5 inches 5'5.50" Weight 190.00 lb Heart Rate 59 /min BP Systolic 101 mmHg BP Diastolic 64 mmHg Respiratory Rate 18 /min Body Temperature 97.1 F Pain Level 0 BMI (Body Mass Index) 31.1 kg/m2 05/10/2018 10:56am Height 65.5 inches 5'5.50" Weight 190.00 lb Heart Rate 62 /min BP Systolic Sitting 102 mmHg BP Diastolic Sitting 64 mmHg O2 % BldC Oximetry 97 % BMI (Body Mass Index) 31.1 kg/m2 01/27/2018 9:52am Height 65 inches 5'5" Weight 211.25 lb Heart Rate 66 /min BP Systolic Sitting 118 mmHg Rue large cuff BP Diastolic Sitting 74 mmHg Rue large cuff Respiratory Rate 16 /min O2 % BldC Oximetry 96 % BMI (Body Mass Index) 35.1 kg/m2 10/27/2017 10:50am Height 65 inches 5'5" Weight 246.00 lb Heart Rate 88 /min BP Systolic Sitting 128 mmHg BP Diastolic Sitting 80 mmHg Respiratory Rate 14 /min BMI (Body Mass Index) 40.9 kg/m2 09/12/2017 8:51am Height 65 inches 5'5" Weight 243.12 lb with boots Heart Rate 86 /min BP Systolic Sitting 130 mmHg Rue large cuff BP Diastolic Sitting 84 mmHg Rue large cuff Respiratory Rate 18 /min O2 % BldC Oximetry 97 % On Ra BMI (Body Mass Index) 40.5 kg/m2 05/23/2017 10:10am Height 65 inches 5'5" Weight 248.00 lb Heart Rate 84 /min BP Systolic Sitting 110 mmHg BP Diastolic Sitting 70 mmHg Respiratory Rate 14 /min O2 % BldC Oximetry 96 % BMI (Body Mass Index) 41.3 kg/m2 02/28/2017 7:53am Height 65 inches 5'5" Weight 243.00 lb Heart Rate 72 /min BP Systolic Sitting 142 mmHg BP Diastolic Sitting 82 mmHg Respiratory Rate 24 /min BMI (Body Mass Index) 40.4 kg/m2 Neck Circumference in inches 19 Results Test Date Facility Test Result H/L Range Note Laboratory test 10/04/2018 [facility] Ferritin 101.4 ng/mL N 24-336 finding [address] [place] [address] [phone] Folic Acid (Folate) > 20.00 ng/mL >3.99 Vitamin B12 380 pg/mL N 180-914 1 Vitamin D Total 25(Oh) 51.1 ng/mL High 20-50 PTH Related Peptide 0.4 pmol/L <2.0 2 Vitamin E Level 9.3 mg/L 5.5 - 17.0 3 Vitamin B1 (Whole Blood) 194 nmol/L Abnormal 70-180 4 CBC Auto Diff 10/04/2018 [facility] White Blood 7.2 10^3/uL N 3.5-10.[address] [place] [address] [phone] Red Blood Count 4.62 10^6/uL N 4.00-5.40 Hemoglobin 14.3 g/dL N 14.0-18.0 Hematocrit 43 % N 42-52 Mean Corpuscular Volume 92 fL N 80-94 Mean Corpuscular Hemoglobin 31 pg N 27-31 Mean Corpuscular HGB Conc 34 g/dL N 31-36 Red Cell Distribution Width 13 % N 10.5-15 Platelet Count 239 10^3/uL N 150-450 Mean Platelet Volume 9.2 fL N 7.4-10.4 Abs Neutrophils 4.3 10^3/uL N 1.5-7.7 Abs Lymphocytes 2.2 10^3/uL N 1.0-4.8 Abs Monocytes 0.5 10^3/uL N 0-0.8 Abs Eosinophils 0.2 10^3/uL N 0-0.6 Abs Basophils 0 10^3/uL N 0-0.2 Abs Nucleated RBC 0 10^3/uL Granulocyte % 60.3 % Lymphocyte % 30.2 % Monocyte % 6.8 % Eosinophil % 2.5 % Basophil % 0.2 % Nucleated Red Blood Cells % 0 Comp Metabolic Panel 10/04/2018 [facility] Sodium 138 mmol/L N 135-[address] [place] [address] [phone] Potassium 5.0 mmol/L N 3.5-5.0 Chloride 102 mmol/L N 101-111 Co2 Carbon Dioxide 31 mmol/L N 22-32 Anion Gap 5 mmol/L N 2-11 Glucose 89 mg/dL N 70-100 Blood Urea Nitrogen 15 mg/dL N 6-24 Creatinine 1.02 mg/dL N 0.67-1.17 BUN/Creatinine Ratio 14.7 N 8-20 Calcium 9.4 mg/dL N 8.6-10.3 Total Protein 6.5 g/dL N 6.4-8.9 Albumin 4.2 g/dL N 3.2-5.2 Globulin 2.3 g/dL N 2-4 Albumin/Globulin Ratio 1.8 N 1-3 Total Bilirubin 0.40 mg/dL N 0.2-1.0 Alkaline Phosphatase 52 U/L N 34-104 Alt 15 U/L N 7-52 Ast 15 U/L N 13-39 Egfr Non- 77.3 >60 Egfr 93.5 >60 5 Iron & Iron Binding 10/04/2018 [facility] Iron 117 g/dL N 50 -[address] [place] [address] [phone] Unsaturated Iron Binding < 294 g/dL Total Iron Binding Capacity 309 g/dL N 250-450 Transferrin 221 mg/dL N 203-362 % Iron Saturation 38 % N 15-55 CBC Auto Diff 05/30/2018 [facility] White Blood 10.7 10^3/uL N 3.5-10.[address] [place] [address] [phone] Red Blood Count 4.41 10^6/uL N 4.00-5.40 Hemoglobin 13.7 g/dL Low 14.0-18.0 Hematocrit 41 % Low 42-52 Mean Corpuscular Volume 92 fL N 80-94 Mean Corpuscular Hemoglobin 31 pg N 27-31 Mean Corpuscular HGB Conc 34 g/dL N 31-36 Red Cell Distribution Width 14 % N 10.5-15 Platelet Count 255 10^3/uL N 150-450 Mean Platelet Volume 9.7 um3 N 7.4-10.4 Abs Neutrophils 8.2 10^3/uL High 1.5-7.7 Abs Lymphocytes 1.8 10^3/uL N 1.0-4.8 Abs Monocytes 0.6 10^3/uL N 0-0.8 Abs Eosinophils 0.1 10^3/uL N 0-0.6 Abs Basophils 0 10^3/uL N 0-0.2 Abs Nucleated RBC 0 10^3/uL Granulocyte % 76.4 % N 38-83 Lymphocyte % 16.8 % Low 25-47 Monocyte % 5.4 % N 0-7 Eosinophil % 1.0 % N 0-6 Basophil % 0.4 % N 0-2 Nucleated Red Blood Cells % 0 Comp Metabolic Panel 05/30/2018 [facility] Sodium 139 mmol/L N 135-145 [address] [place] [address] [phone] Potassium 4.7 mmol/L N 3.5-5.0 Chloride 103 mmol/L N 101-111 Co2 Carbon Dioxide 31 mmol/L N 22-32 Anion Gap 5 mmol/L N 2-11 Glucose 86 mg/dL N 70-100 Blood Urea Nitrogen 13 mg/dL N 6-24 Creatinine 0.92 mg/dL N 0.67-1.17 BUN/Creatinine Ratio 14.1 N 8-20 Calcium 9.1 mg/dL N 8.6-10.3 Total Protein 6.1 g/dL Low 6.4-8.9 Albumin 4.0 g/dL N 3.2-5.2 Globulin 2.1 g/dL N 2-4 Albumin/Globulin Ratio 1.9 N 1-3 Total Bilirubin 0.40 mg/dL N 0.2-1.0 Alkaline Phosphatase 51 U/L N 34-104 Alt 16 U/L N 7-52 Ast 16 U/L N 13-39 Egfr Non- 87.1 >60 Egfr 105.4 >60 7 Iron & Iron Binding 05/30/2018 [facility] Iron 144 g/dL N 50 -212 [address]acity [address] [place] [address] [phone] Unsaturated Iron Binding 158 g/dL Total Iron Binding Capacity 302 g/dL N 250-450 Transferrin 216 mg/dL N 203-362 % Iron Saturation 48 % N 15-55 Laboratory test 05/30/2018 [facility] Ferritin 98.2 ng/mL N 24 -336 8 finding [address] [place] [address] [phone] Folic Acid (Folate) > 20.00 ng/mL >3.99 9 Vitamin B12 366 pg/mL N 180-914 10 Vitamin D Total 25(Oh) 43.0 ng/mL N 20-50 11 Hemoglobin A1c (Glyco HGB) 5.5 % N 4.0-5.6 12 Vitamin B1 (Whole Blood) 274 nmol/L Abnormal 70-180 13 Vitamin E Level 11.7 mg/L 5.5 - 17.0 14 PTH Related Peptide 0.3 pmol/L <2.0 15 CBC Auto Diff 03/21/2018 [facility] White Blood 9.9 10^3/uL N 3.5-10.[address] [place] [address] [phone] Red Blood Count 4.63 10^6/uL N 4.00-5.40 Hemoglobin 14.2 g/dL N 14.0-18.0 Hematocrit 41 % Low 42-52 Mean Corpuscular Volume 88 fL N 80-94 Mean Corpuscular Hemoglobin 31 pg N 27-31 Mean Corpuscular HGB Conc 35 g/dL N 31-36 Red Cell Distribution Width 14 % N 10.5-15 Platelet Count 216 10^3/uL N 150-450 Mean Platelet Volume 9.1 um3 N 7.4-10.4 Abs Neutrophils 7.0 10^3/uL N 1.5-7.7 Abs Lymphocytes 2.0 10^3/uL N 1.0-4.8 Abs Monocytes 0.6 10^3/uL N 0-0.8 Abs Eosinophils 0.2 10^3/uL N 0-0.6 Abs Basophils 0.1 10^3/uL N 0-0.2 Abs Nucleated RBC 0 10^3/uL Granulocyte % 70.7 % N 38-83 Lymphocyte % 20.3 % Low 25-47 Monocyte % 6.3 % N 0-7 Eosinophil % 2.1 % N 0-6 Basophil % 0.6 % N 0-2 Nucleated Red Blood Cells % 0 Laboratory test 03/21/2018 [facility] Ferritin 50.5 ng/mL N 24 -336 [address] [place] [address] [phone] Folic Acid (Folate) > 20.00 ng/mL >3.99 17 Vitamin B12 277 pg/mL N 180-914 18 Vitamin D Total 25(Oh) 46.7 ng/mL N 20-50 19 Iron & Iron Binding 03/21/2018 [facility] Iron 94 g/dL N 50- [address] [place] [address] [phone] Unsaturated Iron Binding 222 g/dL Total Iron Binding Capacity 316 g/dL N 250-450 Transferrin 226 mg/dL N 203-362 % Iron Saturation 30 % N 15-55 Comp Metabolic Panel 03/21/2018 [facility] Sodium 137 mmol/L N 135-[address] [place] [address] [phone] Potassium 4.2 mmol/L N 3.5-5.0 Chloride 102 mmol/L N 101-111 Co2 Carbon Dioxide 29 mmol/L N 22-32 Anion Gap 6 mmol/L N 2-11 Calcium 9.7 mg/dL N 8.6-10.3 Albumin 4.0 g/dL N 3.2-5.2 Total Bilirubin 0.40 mg/dL N 0.2-1.0 Glucose 92 mg/dL N 70-100 Blood Urea Nitrogen 16 mg/dL N 6-24 Creatinine 1.03 mg/dL N 0.67-1.17 BUN/Creatinine Ratio 15.5 N 8-20 Total Protein 6.2 g/dL Low 6.4-8.9 Globulin 2.2 g/dL N 2-4 Albumin/Globulin Ratio 1.8 N 1-3 Alkaline Phosphatase 58 U/L N 34-104 Alt 14 U/L N 7-52 Ast 14 U/L N 13-39 Egfr Non- 76.4 >60 Egfr 92.5 >60 20 Inr/Protime 11/30/2017 [facility] Inr 0.86 N 0.77-1.[address] [place] [address] [phone] Laboratory test 11/30/2017 [facility] Partial 30.7 N 26.0- 36.[address] [place] [address] Time PTT [phone] CBC No Diff 11/30/2017 [facility] White Blood 11.0 High 3.5- 10.[address] Count 10^3/[place] [address] [phone] Red Blood Count 5.22 10^6/uL N 4.0-5.4 Hemoglobin 15.6 g/dL N 14.0-18.0 Hematocrit 47 % N 42-52 Mean Corpuscular Volume 90 fL N 80-94 Mean Corpuscular Hemoglobin 30 pg N 27-31 Mean Corpuscular HGB Conc 33 g/dL N 31-36 Red Cell Distribution Width 13 % N 10.5-15 Platelet Count 264 10^3/uL N 150-450 Mean Platelet Volume 9.5 um3 N 7.4-10.4 Basic Metabolic 11/30/2017 [facility] Sodium 137 mmol/L Low 139-145 Panel [address] [place] [address] [phone] Potassium 4.5 mmol/L N 3.5-5.0 Chloride 100 mmol/L Low 101-111 Co2 Carbon Dioxide 30 mmol/L N 22-32 Anion Gap 7 mmol/L N 2-11 Glucose 87 mg/dL N 70-100 Blood Urea Nitrogen 15 mg/dL N 6-24 Creatinine 1.04 mg/dL N 0.67-1.17 BUN/Creatinine Ratio 14.4 N 8-20 Calcium 10.1 mg/dL N 8.6-10.3 Egfr Non- 75.9 >60 Egfr 97.6 >60 21 Laboratory test 06/30/2017 [facility] Surgical SEE RESULT 22 finding [address] [facility] [place] [place] [address] [phone] 1 Normal Range 180 to 914 Indeterminate Range 145 to 180 Deficient Range <145 2 ADDITIONAL INFORMATION This test was developed and its performance characteristics determined by [facility] in a manner consistent with CLIA requirements. This test has not been cleared or approved by the U.S. Food and Drug Administration. Test Performed by: [facility] [place] - [address] [address] 3 ADDITIONAL INFORMATION This test was developed and its performance characteristics determined by [facility] in a manner consistent with CLIA requirements. This test has not been cleared or approved by the U.S. Food and Drug Administration. Test Performed by: [facility] [place] - [address] [address] 4 ADDITIONAL INFORMATION This test was developed and its performance characteristics determined by [facility] in a manner consistent with CLIA requirements. This test has not been cleared or approved by the U.S. Food and Drug Administration. Test Performed by: [facility] - [facility] [address] [facility], [place] [address] 5 Because ethnic data is not always readily available, this report includes an eGFR for both -Americans and non- Americans. The National Kidney Disease Education Program (NKDEP) does not endorse the use of the MDRD equation for patients that are not between the ages of 18 and 70, are , have extremes of body size, muscle mass, or nutritional status, or are non- or non-. According to the National Kidney Foundation, irrespective of diagnosis, the stage of the disease is based on the level of kidney function: Stage Description GFR(mL/min/1.73 m(2)) 1 Kidney damage with normal or decreased GFR 90 2 Kidney damage with mild decrease in GFR 60-89 3 Moderate decrease in GFR 30-59 4 Severe decrease in GFR 15-29 5 Kidney failure <15 (or dialysis) 6 FASTING 7 Because ethnic data is not always readily available, this report includes an eGFR for both -Americans and non- Americans. The National Kidney Disease Education Program (NKDEP) does not endorse the use of the MDRD equation for patients that are not between the ages of 18 and 70, are , have extremes of body size, muscle mass, or nutritional status, or are non- or non-. According to the National Kidney Foundation, irrespective of diagnosis, the stage of the disease is based on the level of kidney function: Stage Description GFR(mL/min/1.73 m(2)) 1 Kidney damage with normal or decreased GFR 90 2 Kidney damage with mild decrease in GFR 60-89 3 Moderate decrease in GFR 30-59 4 Severe decrease in GFR 15-29 5 Kidney failure <15 (or dialysis) 8 FASTING 9 FASTING 10 Normal Range 180 to 914 Indeterminate Range 145 to 180 Deficient Range <145 11 FASTING 12 Therapeutic target for the treatment of diabetes mellitus patients is <7% HBA1C, and in selective patients <6.0%. Please refer to [place] [employer] diabetic care guidelines for further information. 13 ADDITIONAL INFORMATION This test was developed and its performance characteristics determined by [facility] in a manner consistent with CLIA requirements. This test has not been cleared or approved by the U.S. Food and Drug Administration. Test Performed by: [facility] [place] - [address] [address] 14 ADDITIONAL INFORMATION This test was developed and its performance characteristics determined by [facility] in a manner consistent with CLIA requirements. This test has not been cleared or approved by the U.S. Food and Drug Administration. Test Performed by: [facility] [place] - [address] [address] 15 ADDITIONAL INFORMATION This test was developed and its performance characteristics determined by [facility] in a manner consistent with CLIA requirements. This test has not been cleared or approved by the U.S. Food and Drug Administration. Test Performed by: [facility] - [address] [address] 16 FASTING 17 FASTING 18 Normal Range 180 to 914 Indeterminate Range 145 to 180 Deficient Range <145 19 FASTING 20 Because ethnic data is not always readily available, this report includes an eGFR for both -Americans and non- Americans. The National Kidney Disease Education Program (NKDEP) does not endorse the use of the MDRD equation for patients that are not between the ages of 18 and 70, are , have extremes of body size, muscle mass, or nutritional status, or are non- or non-. According to the National Kidney Foundation, irrespective of diagnosis, the stage of the disease is based on the level of kidney function: Stage Description GFR(mL/min/1.73 m(2)) 1 Kidney damage with normal or decreased GFR 90 2 Kidney damage with mild decrease in GFR 60-89 3 Moderate decrease in GFR 30-59 4 Severe decrease in GFR 15-29 5 Kidney failure <15 (or dialysis) 21 Because ethnic data is not always readily available, this report includes an eGFR for both -Americans and non- Americans. The National Kidney Disease Education Program (NKDEP) does not endorse the use of the MDRD equation for patients that are not between the ages of 18 and 70, are , have extremes of body size, muscle mass, or nutritional status, or are non- or non-. According to the National Kidney Foundation, irrespective of diagnosis, the stage of the disease is based on the level of kidney function: Stage Description GFR(mL/min/1.73 m(2)) 1 Kidney damage with normal or decreased GFR 90 2 Kidney damage with mild decrease in GFR 60-89 3 Moderate decrease in GFR 30-59 4 Severe decrease in GFR 15-29 5 Kidney failure <15 (or dialysis) 22 SEE RESULT BELOW Name: HOMERO ARVIZU : [address]: Clare Bland DO Acct: [id number] Unit: [id number] AGE: 47 Location: ENDO Re06/30/17 SEX: M Status: DEP REF SPEC: [id number] COLLINS: 06/30/17- SUBM DR: Clare Bland DO REQ: [id number] RECD: 06/30/17-1219 STATUS: ADELAIDE RAO DR: Derick Nolan MD _ ORDERED: LEVEL 4/3, IMMUNO-FIRST An H. pylori immunohistochemical stain, with appropriately reacting controls , was performed on sections cut from specimen 2 and is POSITIVE for Helicobacter organisms. Addendum Signed (signature on file) Dotty Pham MD 0935 FINAL DIAGNOSIS 1. Duodenum, biopsy: -- Benign duodenal mucosa with no significant pathologic abnormalities. -- No evidence of villous blunting or increased intraepithelial lymphocytes. 2. Stomach, body and antrum, biopsy: -- Antral and body-type gastric mucosa with moderate chronic gastritis; see comment. 3. Gastroesophageal junction, biopsy: -- Squamous and columnar mucosa with chronic inflammation and focal intestinal metaplasia. -- Dysplasia is absent. COMMENT: An H. pylori immunohistochemical stain is pending for specimen 2 and the results will be reported in an addendum. CLINICAL HISTORY 47 year old male here for gastroesophageal reflux disease, obesity and pre- bariatric screening POST-OPERATIVE DIAGNOSIS Small hiatal hernia; irregular gastroesophageal junction with salon-like mucosa with biopsy to rule out Greenberg?s; pangastritis with biopsy to rule out H. pylori; loose cardia sling; normal duodenum with biopsy to rule out celiac CONTINUED ON NEXT PAGE * ML=Testing performed at Main Lab DEPARTMENT OF PATHOLOGY, [address] [place] [address] Joseph Whelan M.D. Director JANINE # [id number] RUN DATE: 07/05/17 [facility] LAB LIVE PAGE 2 Patient: HOMERO ARVIZU [id number] (Continued) GROSS DESCRIPTION (Continued) GROSS DESCRIPTION 1. The specimen is received in formalin labeled, Biopsy Duodenum, and consists of a 0.8 x 0.2 x 0.1 cm ramírez-pink irregular soft tissue fragment which is submitted entirely in one cassette. 2. The specimen is received in formalin labeled, Biopsy Gastric Antrum and Body, and consists of two ramírez-pink irregular soft tissue fragments averaging 0.3 x 0.2 x 0.1 cm which are submitted entirely in one cassette. 3. The specimen is received in formalin labeled, Biopsy GE Junction, and consists of a 0.7 x 0.6 x 0.1 cm aggregate of ramírez-pink irregular soft tissue fragments which is submitted entirely in one cassette. Signed (signature on file) Dotty Pham MD 1200 END OF REPORT * ML=Testing performed at Main Lab DEPARTMENT OF PATHOLOGY, [address] [place] [address] Joseph Whelan M.D. Director [facility] # [id number] Procedures Date Code Description Status 07/11/2018 [id number] Mammogram Completed 06/19/2018 13018 Colonoscopy Flexible Diagnostic Completed 06/19/2018 70415 Endoscopy Upper GI Biopsy Completed 11/30/2017 26980 EKG, Interpretation Only Completed 10/11/2017 84114 Polysomnography Sleep Staging 4+ Parameters W/Cpap Completed 06/30/2017 12049 Endoscopy Upper GI Biopsy Completed 05/11/2017 55307 Polysomnography Sleep Staging 4+ Parameters W/Cpap Completed Encounters Type Date Location Provider Dx Diagnosis Office Visit 10/24/2018 [facility] G47.33 Obstructive sleep 11:[facility]a [facility] apnea (adult) [facility] (pediatric) Z68.29 Body mass index (BMI) 29.0-29.9, adult Office Visit 07/25/2018 Pulmonology Hasmukh Izquierdo G47.33 Obstructive sleep 9:45a [facility] Maxwell RN, apnea (adult) [facility] EXHAUST AND MUFFLER REPAIRER-BC (pediatric) E66.9 Obesity, unspecified Z68.31 Body mass index (BMI) 31.0-31.9, adult Office Visit 07/12/2018 [facility] Gastroenterology Kymberly D64.9 Anemia, 8:45a MARIKA Holguin unspecified Z98.84 Bariatric surgery status Office Visit 06/01/2018 10:00a [facility] Gastroenterology Kymberly R19.4 Change in MARIKA Holguin bowel habit Office Visit 05/10/2018 10:20a [facility] Internal Medicine Shahid Mieer Z00.00 Argelia Villeda M.D. general adult medical exam w/o abnormal findings I10 Essential (primary) hypertension K21.9 Gastro-esophageal reflux disease without esophagitis G47.33 Obstructive sleep apnea (adult) (pediatric) J45.909 Unspecified asthma, uncomplicated Z12.11 Encounter for screening for malignant neoplasm of colon Z23 Encounter for immunization Office Visit 01/27/2018 Pulmonology And Felecia G47.33 Obstructive sleep 9:45a [facility] Maxwell RN, apnea (adult) [facility] EXHAUST AND MUFFLER REPAIRER-BC (pediatric) E66.9 Obesity, unspecified Z68.35 Body mass index (BMI) 35.0-35.9, adult Office Visit 10/27/2017 PulmonBianca G47.33 Obstructive sleep 1:00p [facility] Maxwell RN, apnea (adult) [facility] (pediatric) E66.01 Morbid (severe) obesity due to excess calories Z68.41 Body mass index (BMI) 40.0-44.9, adult Office Visit 09/12/2017 [facility] Felecia G47.33 Obstructive sleep 9:15a [facility] Maxwell RN, apnea (adult) [facility] EXHAUST AND MUFFLER REPAIRER-BC (pediatric) Z68.41 Body mass index (BMI) 40.0-44.9, adult Office Visit 05/23/2017 Pul[facility] And Felecia G47.33 Obstructive sleep 11:30a [facility] Maxwell RN, apnea (adult) [facility] EXHAUST AND MUFFLER REPAIRER-BC (pediatric) E66.09 Other obesity due to excess calories Z68.41 Body mass index (BMI) 40.0-44.9, adult Office Visit 02/28/2017 8:00a [facility] Ofelia Abarca, R06.83 [facility] E66.09 Other obesity due to excess calories Plan of Treatment Future Appointment(s):01/23/2019 2:00 pm - Felecia Maxwell DNP, RN, EXHAUST AND MUFFLER REPAIRER-BC at [facility]11/07/2018 11:40 am - Shahid Villeda M.D. at [facility] Internal Medicine - Eqdsssspo52/12/2019 - Madison Berry NPG47.33 Obstructive sleep apnea (adult) (pediatric)New Orders:Sleep-Homecare, Ordered: 10/24/18Follow up:2 months, NPSG priorRecommendations:If you have any sleepiness while driving you MUST avoid operating a vehicle or machinery. If you have difficulty with your equipment, or need to replace your mask or hoses, please contact your homecare agency. If you have any further questions, please call the Sleep Disorder Center at [phone] Body mass index (BMI) 29.0- 29.9, adultRecommendations:Great work on the weight loss!
--- OUTSIDE RECORDS SUMMARY | 2018-11-05 13:46 | XMS REPORT | Continuity of Care Document ---
:1970 External Reference #:[id number] Author Name Mira Mclaughlin Care Team Providers Name Role Phone Shahid Villeda III, MD Primary Care Physician Unavailable Payers Date Identification Numbers Payment Provider Subscriber Effective: Policy Number: [id number] James[employer] Starr Arvizu 2017 Medicaid PayID: [id number] [address] [place] [id number] Expires: 2017 Policy Number: [employer]ential Starr Arvizu [id number] PayID: [id number] [address] [place] [phone] Advance Directives Description No Information Available Problems Date Description Provider Status Onset: 06/01/2018 Digestive symptom Kymberly Holguin NP Active Onset: 01/27/2018 Body mass index 30+ - obesity Felecia Maxwell DNP, RN, Active ASSURANCE ASSISTANT-BC Onset: 05/23/2017 Obstructive sleep apnea Felecia Maxwell DNP, RN, Active syndrome ASSURANCE ASSISTANT-BC Onset: 06/01/2018 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 Onset: 07/02/2017 Helicobacter-associated Sunil Sylvester MD Active gastritis Note: standard Prevpac generic sent into pharmacy Jul [address] Bland; ( had been Clotest negative 2010 just after course of unrelated antibiotic) Onset: 05/23/2017 Body mass index 40+ - Felecia Maxwell DNP, RN, Inactive severely obese ASSURANCE ASSISTANT-BC Inactive: 01/27/2018 Family History Date Family Member(s) Observation Comments Father due to Brain Cancer () Mother Breast Cancer Social History Type Date Description Comments Sex Male Marital Status Single Lives With Alone Lives With 1 dog Occupation Currently Working Occupation Level [place] Tobacco Use Start: Unknown End: Former Cigarette [...] 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 /0000 s daily in the [place], - morning M.D. 06/01 Opurity Hx Tablets 1 a day Unknown /0000 - 07/24 Oxycodone HCL Hx Tablets 10mg Take 1 Tablet Unknown /0000 By Mouth - Every 4 To 6 06/04 Hours Needed For Breakthrough P Immunizations CPT Code Status Date Vaccine Reaction Lot # [id number] Given 05/10/2018 Pneumonia Vaccine Pt. tolerated well. [id number] Vital Signs Date Vital Result Comment 10/24/2018 [...] Result H/L Range Note Laboratory test 10/04/2018 [facility] [place] Ferritin 101.4 ng/mL N 24-336 finding [address] [place] [address] [phone] Folic Acid (Folate) > 20.00 ng/mL >3.99 Vitamin B12 380 pg/mL N 180-914 1 Vitamin D Total 25(Oh) 51.1 ng/mL High 20-50 PTH Related Peptide 0.4 pmol/L <2.0 2 Vitamin E Level 9.3 mg/L 5.5 - 17.0 3 Vitamin B1 (Whole Blood) 194 nmol/L Abnormal 70-180 4 CBC Auto Diff 10/04/2018 [facility] White Blood 7.2 10^3/uL N 3.5-10.[address] [place] [address] [phone] Red Blood Count 4.62 10^6/uL N 4.00-5.40 [...] Cells % 0 Comp Metabolic Panel 10/04/2018 [facility] Sodium 138 mmol/L N 135-[address] [place] [address] [phone] Potassium 5.0 mmol/L N 3.5-5.0 Chloride 102 [...] >60 5 Iron & Iron Binding 10/04/2018 [facility] Iron 117 g/dL N 50 -[address] [place] [address] [phone] Unsaturated Iron Binding < 294 g/dL Total Iron Binding Capacity 309 g/dL N 250-450 Transferrin 221 mg/dL N 203-362 % Iron Saturation 38 % N 15-55 CBC Auto Diff 05/30/2018 [facility] White Blood 10.7 10^3/uL N 3.5-10.[address] [place] [address] [phone] Red Blood Count 4.41 10^6/uL N 4.00-5.40 [...] Cells % 0 Comp Metabolic Panel 05/30/2018 [facility] Sodium 139 mmol/L N 135-145 [address] [place] [address] [phone] Potassium 4.7 mmol/L N 3.5-5.0 Chloride 103 [...] >60 7 Iron & Iron Binding 05/30/2018 [facility] Iron 144 g/dL N 50 -212 Capacity [address] [place] [address] [phone] Unsaturated Iron Binding 158 g/dL Total Iron Binding Capacity 302 g/dL N 250-450 Transferrin 216 mg/dL N 203-362 % Iron Saturation 48 % N 15-55 Laboratory test 05/30/2018 [facility] Ferritin 98.2 ng/mL N 24 -336 8 finding [address] [place] [address] [phone] Folic Acid (Folate) > 20.00 ng/mL >3.99 9 Vitamin B12 366 pg/mL N 180-914 10 Vitamin D Total 25(Oh) 43.0 ng/mL N 20-50 11 Hemoglobin A1c (Glyco HGB) 5.5 % N 4.0-5.6 12 Vitamin B1 (Whole Blood) 274 nmol/L Abnormal 70-180 13 Vitamin E Level 11.7 mg/L 5.5 - 17.0 14 PTH Related Peptide 0.3 pmol/L <2.0 15 CBC Auto Diff 03/21/2018 [facility] [place] White Blood 9.9 10^3/uL N 3.5-10.[address] [place] [address] [phone] Red Blood Count 4.63 10^6/uL N 4.00-5.40 [...] Blood Cells % 0 Laboratory test 03/21/2018 [facility] Ferritin 50.5 ng/mL N 24 -336 [address] [place] [address] [phone] Folic Acid (Folate) > 20.00 ng/mL >3.99 17 Vitamin B12 277 pg/mL N 180-914 18 Vitamin D Total 25(Oh) 46.7 ng/mL N 20-50 19 Iron & Iron Binding 03/21/2018 [facility] Iron 94 g/dL N 50- [address] [place] [address] [phone] Unsaturated Iron Binding 222 g/dL Total Iron Binding Capacity 316 g/dL N 250-450 Transferrin 226 mg/dL N 203-362 % Iron Saturation 30 % N 15-55 Comp Metabolic Panel 03/21/2018 [facility] Sodium 137 mmol/L N 135-[address] [place] [address] [phone] Potassium 4.2 mmol/L N 3.5-5.0 Chloride 102 [...] >60 Egfr 92.5 >60 20 Inr/Protime 11/30/2017 [facility] Inr 0.86 N 0.77-1.[address] [place] [address] [phone] Laboratory test 11/30/2017 [facility] Partial 30.7 N 26.0- 36.[address] [address] Time PTT [phone] CBC No Diff 11/30/2017 [facility] White Blood 11.0 High 3.5- 10.[address] Count 10^3/[place] [address] [phone] Red Blood Count 5.22 10^6/uL N 4.0-5.4 Hemoglobin 15.6 g/dL N 14.0-18.0 Hematocrit 47 % N 42-52 Mean Corpuscular Volume 90 fL N 80-94 Mean Corpuscular Hemoglobin 30 pg N 27-31 Mean Corpuscular HGB Conc 33 g/dL N 31-36 Red Cell Distribution Width 13 % N 10.5-15 Platelet Count 264 10^3/uL N 150-450 Mean Platelet Volume 9.5 um3 N 7.4-10.4 Basic Metabolic 11/30/2017 [facility] Sodium 137 mmol/L Low 139-145 Panel [address] [place] [address] [phone] Potassium 4.5 mmol/L N 3.5-5.0 Chloride 100 mmol/L Low 101-111 Co2 Carbon Dioxide 30 mmol/L N 22-32 Anion Gap 7 mmol/L N 2-11 Glucose 87 mg/dL N 70-100 Blood Urea Nitrogen 15 mg/dL N 6-24 Creatinine 1.04 mg/dL N 0.67-1.17 BUN/Creatinine Ratio 14.4 N 8-20 Calcium 10.1 mg/dL N 8.6-10.3 Egfr Non- 75.9 >60 Egfr 97.6 >60 21 Laboratory test 06/30/2017 [facility] Surgical SEE RESULT 22 finding 101 [facility] [place] [address] [phone] 1 Normal Range 180 to 914 Indeterminate Range 145 to 180 Deficient Range <145 2 ADDITIONAL INFORMATION This test was developed and its performance characteristics determined by [facility] in a manner consistent with CLIA requirements. This test has not been cleared or approved by the U.S. Food and Drug Administration. Test Performed by: [facility] - [address] [address] 3 ADDITIONAL INFORMATION This test was developed and its performance characteristics determined by [facility] in a manner consistent with CLIA requirements. This test has not been cleared or approved by the U.S. Food and Drug Administration. Test Performed by: [facility] - [address] [address] 4 ADDITIONAL INFORMATION This test was developed and its performance characteristics determined by [facility] in a manner consistent with CLIA requirements. This test has not been cleared or approved by the U.S. Food and Drug Administration. Test Performed by: [facility] - [facility] [address] [facility], [place] [address] 5 Because ethnic data is not always [...] in selective patients <6.0%. Please refer to [place] diabetic care guidelines for further information. 13 ADDITIONAL INFORMATION This test was developed and its performance characteristics determined by [facility] in a manner consistent with CLIA requirements. This test has not been cleared or approved by the U.S. Food and Drug Administration. Test Performed by: [facility] - [address] [address] 14 ADDITIONAL INFORMATION This test was developed and its performance characteristics determined by [facility] in a manner consistent with CLIA requirements. This test has not been cleared or approved by the U.S. Food and Drug Administration. Test Performed by: [facility] - [address] [address] 15 ADDITIONAL INFORMATION This test was developed and its performance characteristics determined by [facility] in a manner consistent with CLIA requirements. This test has not been cleared or approved by the U.S. Food and Drug Administration. Test Performed by: [facility] - [address] [address] 16 FASTING 17 FASTING 18 Normal Range [...] [address]: Clare Bland DO Acct: [id number] Unit: [id number] AGE: 47 Location: ENDO Re06/30/17 SEX: M Status: DEP REF SPEC: [id number] COLLINS: 06/30/17- SUBM DR: Clare Bland DO REQ: [id number] RECD: 06/30/17-1219 STATUS: ADELAIDE RAO DR: Derick [...] performed at Main Lab DEPARTMENT OF PATHOLOGY, [address] [place] [address] Joseph Whelan M.D. Director JANINE # [id number] RUN DATE: 07/05/17 [facility] LAB LIVE PAGE 2 Patient: HOMERO ARVIZU [id number] (Continued) GROSS DESCRIPTION (Continued) GROSS DESCRIPTION 1. [...] performed at Main Lab DEPARTMENT OF PATHOLOGY, [address] [place] [address] Joseph Whelan M.D. Director [facility] # [id number] Procedures Date Code Description Status 07/11/2018 [id number] Mammogram Completed 06/19/2018 12457 Colonoscopy Flexible Diagnostic Completed 06/19/2018 31641 Endoscopy Upper GI Biopsy Completed 11/30/2017 58469 EKG, Interpretation Only Completed 10/11/2017 66254 Polysomnography Sleep Staging 4+ Parameters W/Cpap Completed 06/30/2017 34593 Endoscopy Upper GI Biopsy Completed 05/11/2017 38580 Polysomnography Sleep Staging 4+ Parameters W/Cpap Completed Encounters Type Date Location Provider Dx Diagnosis Office Visit 10/24/2018 PulmonTr G47.33 Obstructive sleep 11:00a [facility] Berry apnea (adult) [facility] (pediatric) Z68.29 Body mass index (BMI) 29.0-29.9, adult Office Visit 07/25/2018 Pulmonology Hasmukh Izquierdo G47.33 Obstructive sleep 9:45a [facility] Maxwell RN, apnea (adult) [facility] ASSURANCE ASSISTANT-BC (pediatric) E66.9 Obesity, unspecified Z68.31 Body mass index (BMI) 31.0-31.9, adult Office Visit 07/12/2018 [facility] Gastroenterology Kymberly D64.9 Anemia, 8:45a MARIKA Holguin unspecified Z98.84 Bariatric surgery status Office Visit 06/01/2018 10:00a [facility] Gastroenterology Kymberly R19.4 Change in MARIKA Holguin bowel habit Office Visit 05/10/2018 10:20a [facility] Internal Medicine Shahid Meier Z00.00 Argelia Villeda M.D. general adult medical exam w/o abnormal findings I10 Essential (primary) hypertension K21.9 Gastro-esophageal reflux disease without esophagitis G47.33 Obstructive sleep apnea (adult) (pediatric) J45.909 Unspecified asthma, uncomplicated Z12.11 Encounter for screening for malignant neoplasm of colon Z23 Encounter for immunization Office Visit 01/27/2018 Pul[facility]ology And Felecia G47.33 Obstructive sleep 9:45a [facility] Maxwell RN, apnea (adult) [facility] ASSURANCE ASSISTANT-BC (pediatric) E66.9 Obesity, unspecified Z68.35 Body mass index (BMI) 35.0-35.9, adult Office Visit 10/27/2017 PulmonBianca G47.33 Obstructive sleep 1:00p [facility] Maxwell RN, apnea (adult) [facility] (pediatric) E66.01 Morbid (severe) obesity due to excess calories Z68.41 Body mass index (BMI) 40.0-44.9, adult Office Visit 09/12/2017 Pulmonology And Felecia G47.33 Obstructive sleep 9:15a [facility] Maxwell RN, apnea (adult) [facility] ASSURANCE ASSISTANT-BC (pediatric) Z68.41 Body mass index (BMI) 40.0-44.9, adult Office Visit 05/23/2017 [facility] And Felecia G47.33 Obstructive sleep 11:30a [facility] Maxwell RN, apnea (adult) [facility] ASSURANCE ASSISTANT-BC (pediatric) E66.09 Other obesity due to excess calories Z68.41 Body mass index (BMI) 40.0-44.9, adult Office Visit 02/28/2017 8:00a [facility] Sleep Ofelia Abarca, R06.83 [facility] E66.09 Other obesity due to excess calories Plan of Treatment Future Appointment(s):01/23/2019 2:00 pm - Felecia Maxwell DNP, RN, ASSURANCE ASSISTANT-BC at [facility]11/07/2018 11:40 am - Shahid Villeda M.D. at [facility] Internal Medicine - Eqgrzfxnh91/12/2019 - Madison Berry NPG47.33 Obstructive sleep apnea (adult) (pediatric)New Orders:Sleep-Homecare, Ordered: 10/24/18Follow up:2 months, NPSG priorRecommendations:If you have any sleepiness while driving you MUST avoid operating a vehicle or machinery. If you have difficulty with your equipment, or need to replace your mask or hoses, please contact your homecare agency. If you have any further questions, please call the Sleep Disorder Center at [phone] Body mass index (BMI) 29.0- 29.9, adultRecommendations:Great work on the weight loss!
--- NOTE | 2018-11-05 14:39 | ED ---
Abdominal Pain/Male - HPI Summary HPI Summary: Pt is a 48 y/o M presenting to the ED with a chief complaint of abd pain onset about 2 months ago rated at an 11/10. He had gastric bypass about 1 year ago, and he had an ultrasound done on 10/30/18 that he has not heard the results from yet. He reports feeling warm and vomiting, usually vomiting when he eats. He denies smoking or doing drugs. He rarely drinks alcohol. - History of Current Complaint Chief Complaint: EDAbdPain Stated Complaint: MY STOMACH IS KILLING ME Time Seen by Provider: 11/05/18 14:03 Hx Obtained From: Patient Onset/Duration: Gradual Onset, Lasting Weeks, Still Present Timing: Constant, Lasting Weeks Severity Initially: Severe Severity Currently: Severe Pain Intensity: 10 Pain Scale Used: 0-10 Numeric Location: Diffuse Radiates: Yes Radiates to: Flank - right Character: Sharp Aggravating Factor(s): Food, Movement Alleviating Factor(s): Nothing Associated Signs And Symptoms: Positive: Fever, Nausea, Vomiting - Allergies/Home Medications Allergies/Adverse Reactions: Allergies Allergy/AdvReac Type Severity Reaction Status Date / Time Penicillins Allergy Severe Anaphylatic Verified 11/05/18 13:40 Shock PMH/Surg Hx/FS Hx/Imm Hx Previously Healthy: No Endocrine/Hematology History: Reports: Hx Blood Disorders - familial polycythemia, Hx Diabetes - TYPE II- ORAL MEDICATION FOR Cardiovascular History: Reports: Hx Hypertension - ON MEDICATION FOR Denies: Hx Pacemaker/ICD Respiratory History: Reports: Hx Asthma, Hx Sleep Apnea - home machine GI History: Reports: Hx Gastroesophageal Reflux Disease - ROUTINE MEDICATION FOR Musculoskeletal History: Reports: Hx Back Problems, Other Musculoskeletal History - C4-5 BONE SPUR- HAD SURGERY FOR-10+YEARS AGO Denies: Hx Rheumatoid Arthritis, Hx Osteoporosis Sensory History: Reports: Hx Contacts or Glasses Denies: Hx Hearing Aid Opthamlomology History: Reports: Hx Contacts or Glasses Psychiatric History: Reports: Hx Substance Abuse - crack, quit 30 years agof - Surgical History Surgery Procedure, Year, and Place: neck surgery. "umbillicus was removed" d/t hernia surgery. Hx Anesthesia Reactions: Yes - DIZZINESS AND LIGHTHEADED Infectious Disease History: No Infectious Disease History: Denies: History Other Infectious Disease, Traveled Outside the [place] in Last 30 Days - Family History Known Family History: Positive: Blood Disorder Negative: Respiratory Disease - Social History Alcohol Use: Rare Hx Substance Use: No Substance Use Type: Reports: None Substance Use Comment - Amount & Last Used: hx of crack use 30 years ago Hx Tobacco Use: Yes Smoking Status (MU): Former Smoker Amount Used/How Often: 2 PPD X 30 YEARS Have You Smoked in the Last Year: No Review of Systems Positive: Fever Positive: Abdominal Pain, Vomiting, Nausea All Other Systems Reviewed And Are Negative: Yes Physical Exam - Summary Physical Exam Summary: GENERAL: Patient is a well-developed and nourished male who is lying comfortable in the stretcher. Patient is not in any acute respiratory distress. HEAD AND FACE: Normocephalic EYES: PERRLA, EOMI x 2. EARS: Hearing grossly intact. MOUTH: Oropharynx within normal limits. NECK: Supple, trachea is midline, no adenopathy, no JVD, no carotid bruit. CHEST: Symmetric, no tenderness at palpation LUNGS: Clear to auscultation bilaterally. No wheezing or crackles. CVS: Regular rate and rhythm, S1 and S2 present, no murmurs or gallops appreciated. ABDOMEN: Diffuse tenderness to palpation, worse in the epigastric area. Bowel sounds are normal. No abdominal abnormal pulsations. EXTREMITIES: Full ROM in all major joints, no edema, no cyanosis or clubbing. NEURO: Alert and oriented x 3. No acute neurological deficits. Speech is normal and follows commands. SKIN: Dry and warm Triage Information Reviewed: Yes Vital Signs On Initial Exam: Initial Vitals Temp Pulse Resp BP Pulse Ox 100.3 F 83 18 131/75 97 11/05/18 13:36 11/05/18 13:36 11/05/18 13:36 11/05/18 13:36 11/05/18 13:36 Vital Signs Reviewed: Yes Diagnostics - Vital Signs Vital Signs Temp Pulse Resp BP Pulse Ox 11/05/18 13:36 100.3 F 83 18 131/75 97 - Laboratory Result Diagrams: 11/05/18 14:30 11/05/18 14:30 Lab Statement: Any lab studies that have been ordered have been reviewed, and results considered in the medical decision making process. - CT Abd/pelv CT CT Interpretation Completed By: Radiologist Summary of CT Findings: Patient status post gastric bypass surgery. No evidence of bowel obstruction is more noted. Normal appendix. No other masses or fluid collections are noted. ED physician has reviewed this report. Re-Evaluation - Re-Evaluation 1800 Re-Evaluation Time: 18:00 Change: Improved Comment: The pt's pain is reportedly much better. Abdominal Pain Male Course/Dx - Course Course Of Treatment: Pt is a 48 y/o M presenting to the ED with a chief complaint of abd pain onset about 2 months ago rated at an 11/10. He had gastric bypass done 1 year ago. He reports nausea, feeling warm, and vomiting, usually vomiting when eating. He has had two hernias before. As of 1800, the pt is feeling much better and is stable for discharge. I discussed results with patient and he reports feeling better. He is hemodynamically stable and safe for discharge. Strict return precautions given and he will otherwise follow up with his PCP. The pt's dx is abd pain. - Diagnoses Provider Diagnoses: Abdominal pain Discharge - Sign-Out/Discharge Documenting (check all that apply): Patient Departure Patient Received Moderate/Deep Sedation with Procedure: No - Discharge Plan Condition: Stable Disposition: HOME Prescriptions: Pantoprazole TAB (NF) [Protonix TAB (NF)] 40 mg PO DAILY #30 tab Referrals: Derick Nolan MD [Medical Doctor] - Tawana Young MD [Primary Care Provider] - Additional Instructions: Please follow up with Dr. Nolan within the next 1-3 days. Return to the Emergency Department with any new or worsening symptoms. - Billing Disposition and Condition Condition: STABLE Disposition: Home - Attestation Statements Document Initiated by Chloeibe: Yes Documenting Scribe: Darlin Stubbs Provider For Whom Getachew is Documenting (Include Credential): Gaye Pleitez MD. Scribe Attestation: Darlin De Anda, scribed for Gaye Pleitez MD. on 11/05/18 at 1812. Scribe Documentation Reviewed: Yes Provider Attestation: The documentation as recorded by the Darlin cardoza accurately reflects the service I personally performed and the decisions made by me, Suzie Pleitez MD. Status of Scribe Document: Viewed
[2018-11-05 14:42] LABS: ABS Basophils 0 10^3/ul (0-0.2); ABS Eosinophils 0.1 10^3/ul (0-0.6); ABS Lymphocytes 2.3 10^3/ul (1.0-4.8); ABS Monocytes 0.8 10^3/ul (0-0.8); ABS Neutrophils 9.3 10^3/ul (1.5-7.7); ABS Nucleated RBC 0 10^3/ul; Eosinophil % 0.9 %; Hematocrit 40 % (36-46); Hemoglobin 13.6 g/dL (14.0-18.0); Lymphocyte % 18.5 %; Mean Corpuscular HGB Conc 34 g/dL (31-36); Mean Corpuscular Hemoglobin 31 pg (27-31); Mean Corpuscular Volume 91 fL (80-94); Nucleated Red Blood Cells % 0; Platelet Count 245 10^3/uL (150-450); Red Blood Count 4.42 10^6 /uL (4.18-5.48); Red Cell Distribution Width 13 % (10.5-15); White Blood Count 12.6 10^3/uL (3.5-10.8)
[2018-11-05] MEDS ORDERED: NS 0.9% 1000 ML** 1,000 ML IV ONE ×2 (14:42→17:03)
[2018-11-05] MEDS ORDERED: Thiamine IV* 100 MG, Folic Acid IV* 1 MG, Multiple Vitamin IV ADULT* 10 ML in NS 0.9% 1... IV ONE (14:42)
[2018-11-05] MEDS ORDERED: Ondansetron INJ* 2 MG/ML VIAL IV ONE (14:43)
[2018-11-05] MEDS ORDERED: Morphine 4 MG/ML VIAL (1 ml) 4 MG/ML VIAL IV ONE (14:43)
[2018-11-05 14:45] LABS: Urine Appearance Clear; Urine Bilirubin Negative (Negative); Urine Blood Negative (Negative); Urine Color Colorless; Urine Glucose Negative (Negative); Urine Ketones Negative (Negative); Urine Nitrite Negative (Negative); Urine Protein Negative (Negative); Urine Specific Gravity 1.002 (1.010-1.030); Urine Urobilinogen Negative (Negative)
[2018-11-05 14:58] LABS: Albumin 4.1 g/dL (3.2-5.2); Albumin/Globulin Ratio 1.7 (1-3); C Reactive Protein 15.76 mg/L (<8.01); Calcium 9.1 mg/dL (8.6-10.3); EGFR African American 95.7 (>60); EGFR Non-African American 79.1 (>60); Globulin 2.4 g/dL (2-4); Potassium 3.7 mmol/L (3.5-5.0); Total Bilirubin 0.4 mg/dL (0.2-1.0); Total Protein 6.5 g/dL (6.4-8.9)
[2018-11-05] MEDS ORDERED: Iohexol 300* (CONTRAST) 10 ML SDV IV ONE (15:40)
[2018-11-05] MEDS ORDERED: fentaNYL* 50 MCG/ML 2 ML VIAL (100 MCG VIAL) IV SLOW PU ONE (17:02)
[2018-11-05] MEDS ORDERED: Pantoprazole IV* 40 MG IV ONE (17:03)
[2018-11-05 18:27] VITALS: BP 103/76
== END 2018-11-05 18:26 | disposition home or self-care (01) ==
LOC: ED 13:33
DX: R10.9 Unspecified abdominal pain (principal); I10 Essential (primary) hypertension; E11.9 Type 2 diabetes mellitus without complications; K21.9 Gastro-esophageal reflux disease without esophagitis; J45.909 Unspecified asthma, uncomplicated; Z98.84 Bariatric surgery status; Z88.0 Allergy status to penicillin; Z87.891 Personal history of nicotine dependence; Z79.84 Long term (current) use of oral hypoglycemic drugs; Z79.899 Other long term (current) 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
CPT/HCPCS: 36415; 74177; 80053; 81003; 82140; 82150; 83605; 83690; 85025; 86140; 96361; 96374; 96375; 99285; J2270; J2405; J3010; J3411; Q9967

== ENCOUNTER 2018-11-12 16:18 | Emergency (ER) | payer OTHER ==
[2018-11-12] MEDS ORDERED: predniSONE TAB* 20 MG PO ONE (16:27)
[2018-11-12] MEDS ORDERED: diPHENhydraMINE PO* 25 MG PO ONE (16:27)
[2018-11-12] MEDS ORDERED: Famotidine TAB* 20 MG PO ONE (16:27)
--- OUTSIDE RECORDS SUMMARY | 2018-11-12 16:33 | XMS REPORT | Continuity of Care Document ---
:1970 Author Organization [facility] Address [address], [place] [id number] Phone Care Team Providers Name Role Phone Galina Barbosa NP Unavailable Unavailable Allergies, Adverse Reactions, Alerts Substance Reaction Status Penicillins Anaphylaxis Active Medications Medication Instructions Dosage Effective Dates Status Comments (start - stop) Truvada 200 mg-300 TAKE 1 TABLET BY - Active mg tablet MOUTH EVERY DAY PROGESTERONE 200 TAKE 1 CAPSULE BY - Active MG CAPSULE MOUTH EVERYDAY AT BEDTIME ESTRADIOL 2 MG TAKE 1 TABLET BY 1 Tablet - Active TABLET SUBLINGUALLY 2 TIMES EVERY DAY finasteride 5 mg take 1 tablet by 5 MG - Active tablet oral route every day Vitamin B-1 250 mg - Active tablet SYMBICORT (unknown Not Available - Active strength) BREO ELLIPTA Not Available - Active (unknown strength) PANTOPRAZOLE Not Available - Active SODIUM (unknown strength) VITAMIN B-12 Not Available - Active (unknown strength) LISINOPRIL-HYDROCH Not Available - Active LOROTHIAZIDE (unknown strength) Truvada 200 mg-300 TAKE 1 TABLET BY - No Longer mg tablet MOUTH EVERY DAY Active Problems Condition Effective Dates Clinical Status Comments (start - stop) Body mass index (BMI) - 40.0-44.9, adult Human immunodeficiency virus - [HIV] counseling Other intermediate (current) 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 Encntr screen for infections w sexl mode of transmiss Encounter for screening for - human immunodeficiency virus Transsexualism 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 Encntr screen for infections [...] infections w sexl mode of transmiss 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 Encounter for screening for - human immunodeficiency virus Hyperkalemia Transsexualism Human immunodeficiency virus - [HIV] counseling Encntr screen for infections w sexl mode of transmiss Encounter for screening for - human immunodeficiency virus 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 Human immunodeficiency virus - [HIV] counseling Other intermediate (current) 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 Encntr screen for infections [...] sexual behavior - Active On PrEP/Started 06/2017 [id number] transsexual - Active Procedures Procedure Date PREVENTIVE COUNSELING, 8-14 Minutes HIV-1/HIV-2, SINGLE ASSAY OFFICE/OUTPATIENT VISIT, EST CHYLMD, DNA, RECTAL N.GONORRHOEAE, DNA, RECTAL CHYLMD, DNA, PHARYNGEAL N.GONORRHOEAE, DNA, PHARYNGEAL CHYLMD DNA, AMP PROBE N.GONORRHOEAE, DNA, AMP PROB Syphilis HTLV/HIV Gen 4 TEST ASSAY OF CREATININE Height/Weight OTHER Medical Services Contraceptive 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 Other 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 STI Results Test Name Date and Time Measure Units Reference Range Abnormal Flag Status Comments No information NOTE: This patient has pending results not included in this document. Advance Directives Directive Yes / No Effective Date File Name No information Encounters Encounter Practice Location Reason(s) Diagnoses Date Provider Providers Description For Visit Copied on Encounter PREVENTIVE [facility] PrEP Human [place]. Referring COUNSELING, [facility] [place] Revisit immunodeficiency [address] Provider: 8-14 Minutes [place] (chief virus [HIV] [address], [place], [place] complaint) [place], [address], [place], [address] [facility], [facility] intermediate [place]. [address] [place] (current) drug St, , [place], therapyEncntr [place], [address]. [id number], infections w [place] sexl mode of tel:[phone] transmissEncount [phone] er for screening for human immunodeficiency virus [facility] [address]. [address], [place], [place], [place], [address]. [address] [place] tel:[phone] St, [place], [address] [place], [id number], [place] tel:[phone] [facility] [place] Marie. [address], [place], [place], [place], [address]. [place] tel:[phone] St, [place], [address] [place], [id number], [place] tel:[phone] [facility] Transsexualism Ish-2 Familia Mojica. Referring [facility] [place] [address] Provider: [facility] [address], [place], [place], [address], [place], 620 [place], [address] [place]. [address], St, [place], [place], [id number], [address].Cons [place] ulting tel:[phone] Provider: [id number] NURSE [place] [facility]. 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 Referring [facility] [place] (current) drug [address] Provider: [facility] therapyEncntr [address], [place], [place], [address], [place], 620 [place], 620 infections w [place]. [place] sexl mode of St, St, [place], transmissEncount [place], [address]. [id number], for human [place] immunodeficiency tel:[phone] [phone] virus [HIV] counseling [facility] Jun- [facility] [place] Milka. [address], [place], [place], [place], [address]. [address] [place] tel:[phone] St, [place], [address] [place], [id number], [place] tel:[phone] [facility] Encounter for Nov- [place] Referring [facility] [place] ot screening Nicolette. 620 Provider: [facility] for malignant [address], [place] neoplasm of [place], [place], [place], 620 breast [address], [place]. [address] tel:[phone] [address], St, [place], [address] [place], [address]. [id number], tel:[phone] [place] [phone] tel:[phone] [facility] TranssexualismEn Nov- Familia [place]. Referring [facility] [place] docrine 3-201 [address] Provider: [place] disorder, [address], [place], [place], [address], [place], 620 [place], 620 nter for oth [place]. [place] general cnsl and St, St, [place], advice [place], [address]. [id number], ntr screen for [place] infections w tel:[phone] sexl mode of [phone] transmiss [facility] May- [place]. [facility] [place] [address], [place], [place], [address], [place], [address], [place], [place], [id number], [place] tel:[phone] [facility] Human May- Raphaelidis Referring [facility] [place] immunodeficiency 5 Marie. [address] W Provider: [place] virus [HIV] [address], [place] counselingEncoun [place], Raphaelidi [facility], [address] [place] [address]. s, [address] [place] screening for tel:[phone], St, [place], human [address] [place], [place], [address]. [id number], virusEncounter tel:[phone] [place] for [phone] tel:[phone] preprocedural [id number] laboratory examinationEncnt r screen for infections w sexl mode of transmiss [facility] Human Feb- [place]-Hem Referring [facility] [place] immunodeficiency juanita Sueane. Provider: [facility] virus [HIV] 8 [address] Sue[place] counseling[address]ntr [address], [place], [place]-[facility], [address] [place], [address]. emmer, [address] infections w tel:[phone], [place], [place] [address] [place], [place], transmissOther [place], [id number], [place], [address]. [place] (current) drug tel:[phone] tel:[phone] therapyEncounter [phone] for screening for human immunodeficiency virus [facility] Hyperkalemia December- [place] Referring [facility] [place] Florinda. [facility] Provider: [place] [address], [place], [place], [facility], [address], [place]. [address] tel:[phone] [address], St, [place], [address] [place], [place], [address]. [id number], tel:[phone] [place] [phone] tel:[phone] [facility] Transsexualism Raphael Referring [facility] [place] Marie. [address] Provider: [place] [address], [place], Raphaelidi [facility], [address]. s, [address] tel:[phone] [address], , [place], [address] [place], [address]. [id number], tel:[phone] [place] [phone] tel:[phone] [facility] Human December- [place] Referring [facility] [place] immunodeficiency 4 Marie. [address] W Provider: [place] virus [HIV] [address], [place] counselingEncntr [place], [place], [facility] [address]. s, [address] infections w tel:[phone] [address], , [place], [place] [address] [place], [place], [place], [address]. [id number], er for screening tel:[phone] [place] for human [id number] tel:[phone] immunodeficiency [phone] virus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 [facility] Human Familia Mojica. 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 [address] [place] [address] [place] (current) drug St, St, [place], therapyEncntr [place], [address]. [id number], infections w [place] sexl mode of tel:[phone] transmissEncount [phone] er for screening for human immunodeficiency virus [facility] Endocrine Familia Mojica. Referring [facility] [place] disorder, [address] Provider: Southern unspecifiedTrans [address] St, [place], [place], [address], [place], 620 [place], 620 [place]. [address], St, [place], [place], [address]. [id number], [place] tel:[phone] [facility] Encntr screen Nov-3 Familia Mojica. [facility] [place] for infections w 0- [address] Southern sexl mode of [address], [place], [place], [address], [place], [address], [place], [place], [id number], [place] tel:[phone] [facility] Encounter for Nov-2 Familia Mojica. Referring [facility] [place] preprocedural [address] Provider: [facility] laboratory [address], [place], [place] [address], [place], 620 [place], 620 immunodeficiency [place]. [address] [place] virus [HIV] St, St, [place], counselingEncoun [place], [address]. [id number], screening for [place] human tel:[phone] immunodeficiency [phone] virusEncntr screen for infections w sexl mode of transmissEncount er for screening for other viral diseasesTranssex ualismEndocrine disorder, unspecified [facility] Oct-2 Familia Mojica. [facility] [place] 3 [address], [place], [place], [address], [place], [address], [place], [place], [id number], [place] tel:[phone] [facility] Human Oct- P[facility]te [facility] [place] immunodeficiency 2- Milka. [address] [facility] virus [HIV] [address], [place] counselingEncoun [place], [place], [place], [address] [place] [address]. [address] [place] screening for tel:[phone] St, [place], [place] [address] [place], immunodeficiency [id number], virusTranssexual [place] ismEncntr screen tel:[phone] for infections w [phone] sexl mode of transmiss [facility] Endocrine Feb-0 Familia Mojica. [facility] [place] disorder, [address] unspecifiedTrans [address], [place], [place], [address], [place], 620 mass index (BMI) [place]. [address] [place] 40.0-44.9, adult St, [place], [place], [id number], [place] tel:[phone] [facility] TranssexualismDi Nov- P[facility]te [facility] [place] etary counseling Febia. [address], [place] surveillanceOthe [place], [place], [facility], 620 r specified [address]. [address] [place] counseling tel:+[phone] St, [place], [address] [place], [id number], [place] tel:[phone] [facility] Gender identity Apr-0 Borg[place] [facility] [place] disorder in . [address] adolescence and [address], [place] adulthoodEndocri [place], [place], [facility], 620 [place] disorder, [address], [place]. [address] [place] unspecifiedEleva tel:[phone] St, [place], [place] [address] [place], blood-pressure [id number], reading, w/o [place] diagnosis of tel:[phone] htnBody mass [id number] index (BMI) 40.0-44.9, adult [facility] TranssexualismEn P[facility]te [facility] [place] docrine . [address] disorder, [address], [place] unspecifiedEleva [place], [place], [facility], 620 payal [address]. [address] [place] blood-pressure tel:[phone] St, [place], [place], [place] [address] [place], diagnosis of htn [id number], [place] tel:[phone] Family History Family Member Diagnosis Age At Onset Mother Cancer, breast 66 Sister Substance abuse Father Brain cancer (Cause Of ) Immunizations Vaccine Date Status Comments No information Payers Payer name Insurance type Covered democrat ID Authorization(s) No information Social History Type Description Quantity Date Captured Comments Alcohol Use Details Unknown Caffeine Use Details Unknown Tobacco Use Status Unknown Smoking Status Former smoker Non-Smoking Tobacco : No Details Available : No Details Available 2018 Use Details Sex Male Vital Signs Date / Height Weight BMI Pulse Blood Temperature Respiratory Body Head BMI Pulse Inhaled Time: Rate Pressure Rate Surface Circumference percentile Ox Ox Area 174.40 -2019 lbs 4:35 PM Chief Complaint And Reason For Visit Most recent encounter only, dated '11/08/2018 17:10'. PrEP Revisit ( chief complaint). Description: Context: - Patient's last negative HIV test was 08/22/2018. Risk factors include: Lack of condom use, Anal sex ( receptive or insertive) without condoms in last 6 months. Pertinent negatives include fatigue, fever, night sweats, headache, dysphagia, mouth sores, sore throat, rash, bone/joint symptoms, myalgia, lymphadenopathy, diarrhea and dysuria. Reason For Referral Reason For Referral No information Plan Of Treatment Date Type Action Status Goal Tobacco cessation counseling completed Goal Dietary management education, guidance, and counseling completed History Of Present Illness Encounter Date Complaint History Of Present Illness PrEP Revisit Context: - Patient's last negative HIV test was 08/22/2018. Risk factors include: Lack of condom use, Anal sex (receptive or insertive) without condoms in last 6 months. Pertinent negatives include fatigue, fever, night sweats, headache, dysphagia, mouth sores, sore throat, rash, bone/joint symptoms, myalgia, lymphadenopathy, diarrhea and dysuria. 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
--- OUTSIDE RECORDS SUMMARY | 2018-11-12 16:34 | XMS REPORT | Continuity of Care Document ---
:1970 External Reference #:[id number] Author Name Mira Mclaughlin Care Team Providers Name Role Phone Shahid Villeda III, MD Primary Care Physician Unavailable Payers Date Identification Numbers Payment Provider Subscriber Effective: Policy Number: [id number] [employer] Starr Arvizu 2017 Medicaid PayID: [id number] [address] [place] [id number] Expires: 2017 Policy Number: [employer] Starr Arvizu [id number] PayID: [id number] [address] [place] [phone] Advance Directives Description No Information Available Problems Date Description Provider Status Onset: 06/01/2018 Digestive symptom Kymberly Holguin NP Active Onset: 01/27/2018 Body mass index 30+ - obesity Felecia Maxwell DNP, RN, Active MOLDER-BC Onset: 05/23/2017 Obstructive sleep apnea Felecia Maxwell DNP, RN, Active syndrome MOLDER-BC Onset: 06/01/2018 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 Onset: 07/02/2017 Helicobacter-associated Sunil Sylvester MD Active gastritis Note: standard Prevpac generic sent into pharmacy Jul [address] Bland; ( had been Clotest negative 2010 just after course of unrelated antibiotic) Onset: 05/23/2017 Body mass index 40+ - Felecia Maxwell DNP, RN, Inactive severely obese MOLDER-BC Inactive: 01/27/2018 Family History Date Family Member(s) Observation Comments Father due to Brain Cancer () Mother Breast Cancer Social History Type Date Description Comments Sex Male Marital Status Single Lives With Alone Lives With 1 dog Occupation Currently Working Occupation [employer] [place] Tobacco Use Start: Unknown End: Former Cigarette [...] 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 /0000 s daily in the [place], - morning M.D. 06/01 Opurity Hx Tablets 1 a day Unknown /0000 - 07/24 Oxycodone HCL Hx Tablets 10mg Take 1 Tablet Unknown /0000 By Mouth - Every 4 To 6 06/04 Hours Needed For Breakthrough P Immunizations CPT Code Status Date Vaccine Reaction Lot # [id number] Given 05/10/2018 Pneumonia Vaccine Pt. tolerated well. [id number] Vital Signs Date Vital Result Comment 10/24/2018 [...] Date Facility Test Result H/L Range Note CBC Auto Diff 11/05/2018 [facility] White Blood 12.6 10^3/uL High 3.5-10.[address] [place] [address] [phone] Red Blood Count 4.42 10^6/uL N 4.18-5.48 Hemoglobin 13.6 g/dL Low 14.0-18.0 Hematocrit 40 % N 36-46 Mean Corpuscular Volume 91 fL N 80-94 Mean Corpuscular Hemoglobin 31 pg N 27-31 Mean Corpuscular HGB Conc 34 g/dL N 31-36 Red Cell Distribution Width 13 % N 10.5-15 Platelet Count 245 10^3/uL N 150-450 Mean Platelet Volume 9.0 fL N 7.4-10.4 Abs Neutrophils 9.3 10^3/uL High 1.5-7.7 Abs Lymphocytes 2.3 10^3/uL N 1.0-4.8 Abs Monocytes 0.8 10^3/uL N 0-0.8 Abs Eosinophils 0.1 10^3/uL N 0-0.6 Abs Basophils 0 10^3/uL N 0-0.2 Abs Nucleated RBC 0 10^3/uL Granulocyte % 73.8 % Lymphocyte % 18.5 % Monocyte % 6.7 % Eosinophil % 0.9 % Basophil % 0.1 % Nucleated Red Blood Cells % 0 Urinalysis Profile 11/05/2018 [facility] Urine Color Colorless [address] [place] [address] [phone] Urine Appearance Clear Urine Specific [place] 1.002 Low 1.010-1.030 Urine pH 7.0 N 5-9 Urine Urobilinogen Negative Negative Urine Ketones Negative Negative Urine Protein Negative Negative Urine Leukocytes Negative Negative Urine Blood Negative Negative Urine Nitrite Negative Negative Urine Bilirubin Negative Negative Urine Glucose Negative Negative Laboratory test 11/05/2018 [facility] Ammonia 42 mcmol/L N 16- 53 finding [address] [place] [address] [phone] Comp Metabolic Panel 11/05/2018 [facility] Sodium 135 mmol/L N 135-145 [address] [place] [address] [phone] Potassium 3.7 mmol/L N 3.5-5.0 Chloride 101 mmol/L N 101-111 Co2 Carbon Dioxide 29 mmol/L N 22-32 Anion Gap 5 mmol/L N 2-11 Glucose 88 mg/dL N 70-100 Blood Urea Nitrogen 15 mg/dL N 6-24 Creatinine 1.00 mg/dL N 0.67-1.17 BUN/Creatinine Ratio 15.0 N 8-20 Calcium 9.1 mg/dL N 8.6-10.3 Total Protein 6.5 g/dL N 6.4-8.9 Albumin 4.1 g/dL N 3.2-5.2 Globulin 2.4 g/dL N 2-4 Albumin/Globulin Ratio 1.7 N 1-3 Total Bilirubin 0.40 mg/dL N 0.2-1.0 Alkaline Phosphatase 53 U/L N 34-104 Alt 17 U/L N 7-52 Ast 16 U/L N 13-39 Egfr Non- 79.1 >60 Egfr 95.7 >60 1 Laboratory test finding 11/05/2018 [facility] Amylase 33 U/L N 29-[address] [place] [address] [phone] Lipase 21 U/L N 11.0-82.0 C Reactive Protein 15.76 mg/L High <8.01 Lactic Acid 0.5 mmol/L N 0.5-2.0 2 CBC Auto Diff 10/04/2018 [facility] White Blood 7.2 10^3/uL N 3.5-10.[address] [place] [address] [phone] Red Blood Count 4.62 10^6/uL N 4.00-5.40 [...] Cells % 0 Comp Metabolic Panel 10/04/2018 [facility] Sodium 138 mmol/L N 135-145 [address] [place] [address] [phone] Potassium 5.0 mmol/L N 3.5-5.0 Chloride 102 [...] Egfr Non- 77.3 >60 Egfr 93.5 >60 3 Iron & Iron Binding 10/04/2018 [facility] Iron 117 g/dL N 50 -212 Capacity [address] [place] [address] [phone] Unsaturated Iron Binding < 294 g/dL Total Iron Binding Capacity 309 g/dL N 250-450 Transferrin 221 mg/dL N 203-362 % Iron Saturation 38 % N 15-55 Laboratory test 10/04/2018 [facility] Ferritin 101.4 ng/mL N 24-336 finding [address] [place] [address] [phone] Folic Acid (Folate) > 20.00 ng/mL >3.99 Vitamin B12 380 pg/mL N 180-914 4 Vitamin D Total 25(Oh) 51.1 ng/mL High 20-50 PTH Related Peptide 0.4 pmol/L <2.0 5 Vitamin E Level 9.3 mg/L 5.5 - 17.0 6 Vitamin B1 (Whole Blood) 194 nmol/L Abnormal 70-180 7 CBC Auto Diff 05/30/2018 [facility] White Blood 10.7 10^3/uL N 3.5-10.[address] [place] [address] [phone] Red Blood Count 4.41 10^6/uL N 4.00-5.40 [...] Cells % 0 Comp Metabolic Panel 05/30/2018 [facility] Sodium 139 mmol/L N 135-[address] [place] [address] [phone] Potassium 4.7 mmol/L N 3.5-5.0 Chloride 103 [...] Egfr Non- 87.1 >60 Egfr 105.4 >60 9 Iron & Iron Binding 05/30/2018 [facility] Iron 144 g/dL N 50 -[address] [place] [address] [phone] Unsaturated Iron Binding 158 g/dL Total Iron Binding Capacity 302 g/dL N 250-450 Transferrin 216 mg/dL N 203-362 % Iron Saturation 48 % N 15-55 Laboratory test 05/30/2018 [facility] Ferritin 98.2 ng/mL N 24 -336 [address] [place] [address] [phone] Folic Acid (Folate) > 20.00 ng/mL >3.99 11 Vitamin B12 366 pg/mL N 180-914 12 Vitamin D Total 25(Oh) 43.0 ng/mL N 20-50 13 Hemoglobin A1c (Glyco HGB) 5.5 % N 4.0-5.6 14 Vitamin B1 (Whole Blood) 274 nmol/L Abnormal 70-180 15 Vitamin E Level 11.7 mg/L 5.5 - 17.0 16 PTH Related Peptide 0.3 pmol/L <2.0 17 CBC Auto Diff 03/21/2018 [facility] White Blood 9.9 10^3/uL N 3.5-10.[address] [place] [address] [phone] Red Blood Count 4.63 10^6/uL N 4.00-5.40 [...] Blood Cells % 0 Laboratory test 03/21/2018 [facility] Ferritin 50.5 ng/mL N 24 -336 18 finding [address] [place] [address] [phone] Folic Acid (Folate) > 20.00 ng/mL >3.99 19 Vitamin B12 277 pg/mL N 180-914 20 Vitamin D Total 25(Oh) 46.7 ng/mL N 20-50 21 Iron & Iron Binding 03/21/2018 [facility] Iron 94 g/dL N 50- 212 [address] [place] [address] [phone] Unsaturated Iron Binding 222 g/dL Total Iron Binding Capacity 316 g/dL N 250-450 Transferrin 226 mg/dL N 203-362 % Iron Saturation 30 % N 15-55 Comp Metabolic Panel 03/21/2018 [facility] Sodium 137 mmol/L N 135-145 [address] [place] [address] [phone] Potassium 4.2 mmol/L N 3.5-5.0 Chloride 102 [...] Egfr Non- 76.4 >60 Egfr 92.5 >60 22 Inr/Protime 11/30/2017 [facility] Inr 0.86 N 0.77-1.[address] [place], [place] [address] [phone] Laboratory test 11/30/2017 [facility] Partial 30.7 N 26.0- 36.[address] [address] Time PTT [phone] CBC No Diff 11/30/2017 [facility] White Blood 11.0 High 3.5- 10.[address] Count 10^3/[place] [address] [phone] Red Blood Count 5.22 10^6/uL N 4.0-5.4 Hemoglobin 15.6 g/dL N 14.0-18.0 Hematocrit 47 % N 42-52 Mean Corpuscular Volume 90 fL N 80-94 Mean Corpuscular Hemoglobin 30 pg N 27-31 Mean Corpuscular HGB Conc 33 g/dL N 31-36 Red Cell Distribution Width 13 % N 10.5-15 Platelet Count 264 10^3/uL N 150-450 Mean Platelet Volume 9.5 um3 N 7.4-10.4 Basic Metabolic 11/30/2017 [facility] Sodium 137 mmol/L Low 139-[address] [place] [address] [phone] Potassium 4.5 mmol/L N 3.5-5.0 Chloride 100 mmol/L Low 101-111 Co2 Carbon Dioxide 30 mmol/L N 22-32 Anion Gap 7 mmol/L N 2-11 Glucose 87 mg/dL N 70-100 Blood Urea Nitrogen 15 mg/dL N 6-24 Creatinine 1.04 mg/dL N 0.67-1.17 BUN/Creatinine Ratio 14.4 N 8-20 Calcium 10.1 mg/dL N 8.6-10.3 Egfr Non- 75.9 >60 Egfr 97.6 >60 23 Laboratory test 06/30/2017 [facility] Surgical SEE RESULT [address] [place] [address] [phone] 1 Because ethnic data is not always readily [...] 15-29 5 Kidney failure <15 (or dialysis) 2 [facility] Severe Sepsis and Septic Shock Management Bundle Measure requires all lactic acids initially measuring >2.0 mmol/L be repeated. 3 Because ethnic data is not always readily [...] 15-29 5 Kidney failure <15 (or dialysis) 4 Normal Range 180 to 914 Indeterminate Range 145 to 180 Deficient Range <145 5 ADDITIONAL INFORMATION This test was developed and its performance characteristics determined by [facility] in a manner consistent with CLIA requirements. This test has not been cleared or approved by the U.S. Food and Drug Administration. Test Performed by: [facility] - [address] [address] 6 ADDITIONAL INFORMATION This test was developed and its performance characteristics determined by [facility] in a manner consistent with CLIA requirements. This test has not been cleared or approved by the U.S. Food and Drug Administration. Test Performed by: [facility] - [address] [address] 7 ADDITIONAL INFORMATION This test was developed and its performance characteristics determined by [facility] in a manner consistent with CLIA requirements. This test has not been cleared or approved by the U.S. Food and Drug Administration. Test Performed by: [facility] - [address] [address] 8 FASTING 9 Because ethnic data is not always readily [...] 15-29 5 Kidney failure <15 (or dialysis) 10 FASTING 11 FASTING 12 Normal Range 180 to 914 Indeterminate Range 145 to 180 Deficient Range <145 13 FASTING 14 Therapeutic target for the treatment of diabetes mellitus patients is <7% HBA1C, and in selective patients <6.0%. Please refer to [place] [employer] diabetic care guidelines for further information. 15 ADDITIONAL INFORMATION This test was developed and its performance characteristics determined by [facility] in a manner consistent with CLIA requirements. This test has not been cleared or approved by the U.S. Food and Drug Administration. Test Performed by: [facility] - [address] [address] 16 ADDITIONAL INFORMATION This test was developed and its performance characteristics determined by [facility] in a manner consistent with CLIA requirements. This test has not been cleared or approved by the U.S. Food and Drug Administration. Test Performed by: [facility] - [address] [address] 17 ADDITIONAL INFORMATION This test was developed and its performance characteristics determined by [facility] in a manner consistent with CLIA requirements. This test has not been cleared or approved by the U.S. Food and Drug Administration. Test Performed by: [facility] - [address] [address] 18 FASTING 19 FASTING 20 Normal Range 180 to 914 Indeterminate Range 145 to 180 Deficient Range <145 21 FASTING 22 Because ethnic data is not always readily [...] 15-29 5 Kidney failure <15 (or dialysis) 23 Because ethnic data is not always readily [...] 15-29 5 Kidney failure <15 (or dialysis) 24 SEE RESULT BELOW Name: HOMERO ARVIZU : [address]: Clare Bland DO Acct: [id number] Unit: [id number] AGE: 47 Location: ENDO Re06/30/17 SEX: M Status: DEP REF SPEC: [id number] COLLINS: 06/30/17- SUBM DR: Clare Bland DO REQ: [id number] RECD: 06/30/17-9 STATUS: ADELAIDE RAO DR: Derick Nolan MD [...] performed at Main Lab DEPARTMENT OF PATHOLOGY, [address] [place] [address] Joseph Whelan M.D. Director [facility] # [id number] RUN DATE: 07/05/17 [facility] LAB LIVE PAGE 2 Patient: HOMERO ARVIZU [id number] (Continued) GROSS DESCRIPTION (Continued) GROSS DESCRIPTION 1. [...] performed at Main Lab DEPARTMENT OF PATHOLOGY, [address] [place] [address] Joseph Whelan M.D. Director [facility] # [id number] Procedures Date Code Description Status 07/11/2018 [id number] Mammogram Completed 06/19/2018 97154 Colonoscopy Flexible Diagnostic Completed 06/19/2018 22940 Endoscopy Upper GI Biopsy Completed 11/30/2017 31121 EKG, Interpretation Only Completed 10/11/2017 47030 Polysomnography Sleep Staging 4+ Parameters W/Cpap Completed 06/30/2017 80990 Endoscopy Upper GI Biopsy Completed 05/11/2017 32657 Polysomnography Sleep Staging 4+ Parameters W/Cpap Completed Encounters Type Date Location Provider Dx Diagnosis Office Visit 10/24/2018 [facility] [place] G47.33 Obstructive sleep 11:00a [facility]A Berry apnea (adult) [facility] [address] (pediatric) Z98.84 Bariatric surgery status Z68.29 Body mass index (BMI) 29.0-29.9, adult Office Visit 07/25/2018 [facility] Felecia G47.33 Obstructive sleep 9:45a [facility] ZE Maxwell, SWATI, apnea (adult) [facility] [address] MOLDER-BC (pediatric) E66.9 Obesity, unspecified Z68.31 Body mass index (BMI) 31.0-31.9, adult Office Visit 07/12/2018 [facility] [address] Gastroenterology Kymberly D64.9 Anemia, 8:45a MARIKA Holguin unspecified Z98.84 Bariatric surgery status Office Visit 06/01/2018 10:00a [facility] [address] Gastroenterology Kymberly R19.4 Change in MARIKA Holguin bowel habit Office Visit 05/10/2018 10:20a [facility] [address] Internal Medicine Shahid Meier Z00.00 Argelia Villeda [...] Services Of ZE Maxwell RN, apnea (adult) [facility] [address] MOL[facility]-BC (pediatric) E66.9 Obesity, unspecified Z68.35 Body mass index (BMI) 35.0-35.9, adult Office Visit 10/27/2017 [facility] G47.33 Obstructive sleep 1:00p [facility] Maxwell RN, apnea (adult) [employer] [facility] (pediatric) E66.01 Morbid (severe) obesity due to excess calories Z68.41 Body mass index (BMI) 40.0-44.9, adult Office Visit 09/12/2017 [facility] G47.33 Obstructive sleep 9:15a [facility] Maxwell, SWATI, apnea (adult) [facility] (pediatric) Z68.41 Body mass index (BMI) 40.0-44.9, adult Office Visit 05/23/2017 [facility] Felecia G47.33 Obstructive sleep 11:30a [facility] Maxwell, SWATI, apnea (adult) [facility] (pediatric) E66.09 Other obesity due to excess calories Z68.41 Body mass index (BMI) 40.0-44.9, adult Office Visit 02/28/2017 8:00a [facility] Ofelia Abarca, R06.83 [facility] [address] E66.09 Other obesity due to excess calories Plan of Treatment Future Appointment(s):11/14/2018 4:00 pm - Shahid Villeda M.D. at [facility] [address] Internal Medicine - Skndzzgsz99/11/2019 2:00 pm - Felecia Maxwell DNP, RN, MOLDER -BC at [facility] [address]/24/2018 - [place] Berry NPG47.33 Obstructive sleep apnea (adult) (pediatric)Follow up:2 months, NPSG priorRecommendations:If you have any sleepiness while driving you MUST avoid operating a vehicle or machinery. If you have difficulty with your equipment, or need to replace your mask or hoses, please contact your homecare agency. If you have any further questions, please call the [facility] at [phone] Bariatric surgery xnosltW41.29 Body mass index (BMI) 29.0-29.9, adultRecommendations:Great work on the weight loss!
[2018-11-12 19:17] VITALS: BP 114/65
--- NOTE | 2018-11-12 20:47 | ED ---
Skin Complaint - HPI Summary HPI Summary: Patient complains of pruritus and hives after taking Augmentin prescribed by Dr. Bello x 4 days Patient has allergy to penicillins. Patient Is here because he thought we prescribed via the Augmentin, and wanted an alternative prescription. Patient was seen here in this ED a couple days ago for abdominal pain, Chart for that visit was reviewed and patient had been prescribed only pantoprazole from the ED. Patient states he has this medication and has been taking it and states abdominal pain is resolved. Patient denies fever, cough, sore throat, SOB, CP, N/V/D, dental pain, change in urine, change in BM. - History of Current Complaint Chief Complaint: EDAllergicReaction Stated Complaint: POSS ALLERGIC REACTION PER PT Hx Obtained From: Patient Onset/Duration: Started Days Ago Skin Exposure Onset/Duration: Days Ago Timing: Constant Onset Severity: Moderate Current Severity: Moderate Pain Intensity: 6 Pain Scale Used: 0-10 Numeric Skin Location: Diffuse Aggravating Symptom(s): Nothing Alleviating Symptom(s): Nothing Associated Signs & Symptoms: Rash - Additional Pertinent History Primary Care Physician: SAURABH - Allergy/Home Medications Allergies/Adverse Reactions: Allergies Allergy/AdvReac Type Severity Reaction Status Date / Time Penicillins Allergy Severe Anaphylatic Verified 11/05/18 13:40 Shock PMH/Surg Hx/FS Hx/Imm Hx Endocrine/Hematology History: Reports: Hx Blood Disorders - familial polycythemia, Hx Diabetes - TYPE II- ORAL MEDICATION FOR Cardiovascular History: Reports: Hx Hypertension - ON MEDICATION FOR Denies: Hx Pacemaker/ICD Respiratory History: Reports: Hx Asthma, Hx Sleep Apnea - home machine GI History: Reports: Hx Gastroesophageal Reflux Disease - ROUTINE MEDICATION FOR History: Denies: Hx Renal Disease Musculoskeletal History: Reports: Hx Back Problems, Other Musculoskeletal History - C4-5 BONE SPUR- HAD SURGERY FOR-10+YEARS AGO Denies: Hx Rheumatoid Arthritis, Hx Osteoporosis Sensory History: Reports: Hx Contacts or Glasses Denies: Hx Hearing Aid Opthamlomology History: Reports: Hx Contacts or Glasses Neurological History: Denies: Hx Dementia Psychiatric History: Reports: Hx Substance Abuse - crack, quit 30 years agof - Surgical History Surgery Procedure, Year, and Place: neck surgery. "umbillicus was removed" d/t hernia surgery. Hx Anesthesia Reactions: Yes - DIZZINESS AND LIGHTHEADED Infectious Disease History: No Infectious Disease History: Denies: History Other Infectious Disease, Traveled Outside the [place] in Last 30 Days - Family History Known Family History: Positive: Blood Disorder Negative: Respiratory Disease - Social History Alcohol Use: Rare Hx Substance Use: No Substance Use Type: Reports: None Substance Use Comment - Amount & Last Used: hx of crack use 30 years ago Hx Tobacco Use: Yes Smoking Status (MU): Former Smoker Amount Used/How Often: 2 PPD X 30 YEARS Have You Smoked in the Last Year: No Review of Systems Constitutional: Negative Eyes: Negative ENT: Negative Cardiovascular: Negative Respiratory: Negative Gastrointestinal: Negative Genitourinary: Negative Musculoskeletal: Negative Positive: Rash Neurological: Negative Psychological: Normal All Other Systems Reviewed And Are Negative: Yes Physical Exam - Summary Physical Exam Summary: Patches of mild erythema on chest and back. Patient scratching intermittently. No facial, oral or intraoral swelling. Lung sounds clear to auscultation bilaterally. Triage Information Reviewed: Yes Vital Signs On Initial Exam: Initial Vitals Temp Pulse Resp BP Pulse Ox 98.4 F 74 16 128/74 97 11/12/18 16:21 11/12/18 16:21 11/12/18 16:21 11/12/18 16:21 11/12/18 16:21 Vital Signs Reviewed: Yes Appearance: Positive: Well-Appearing Skin: Positive: Warm Head/Face: Positive: Normal Head/Face Inspection Eyes: Positive: Normal ENT: Positive: Normal ENT inspection Neck: Positive: Supple Respiratory/Lung Sounds: Positive: Clear to Auscultation Cardiovascular: Positive: Normal Abdomen Description: Positive: Nontender Musculoskeletal: Positive: Normal Neurological: Positive: Normal Psychiatric: Positive: Normal AVPU Assessment: Alert - [place] Coma Scale Best Eye Response: 4 - Spontaneous Best Motor Response: 6 - Obeys Commands Best Verbal Response: 5 - Oriented Coma Scale Total: 15 Diagnostics - Vital Signs Vital Signs Temp Pulse Resp BP Pulse Ox 11/12/18 19:16 99.8 F 53 16 114/65 99 11/12/18 16:21 98.4 F 74 16 128/74 97 - Laboratory Lab Statement: Any lab studies that have been ordered have been reviewed, and results considered in the medical decision making process. Course/Dx - Course Course Of Treatment: Patient complains of pruritus and hives after taking Augmentin prescribed by Dr. Bello x 4 days Patient has allergy to penicillins. Patient Is here because he thought we prescribed via the Augmentin, and wanted an alternative prescription. Patient was seen here in this ED a couple days ago for abdominal pain, Chart for that visit was reviewed and patient had been prescribed only pantoprazole from the ED. Patient states he has this medication and has been taking it and states abdominal pain is resolved. Patient denies fever, cough, sore throat, SOB, CP, N/V/D, dental pain, change in urine, change in BM. Physical exam:Patches of mild erythema on chest and back. Patient scratching intermittently. No facial, oral or intraoral swelling. Lung sounds clear to auscultation bilaterally. Vital signs within normal limits. Patient was advised to stop taking Augmentin and to follow-up with Dr. ovalels for alternative antibiotic. Patient agreed to do this. Patient was also given Benadryl 50 mg by mouth, famotidine and prednisone here in the ED. Patient also advised to continue taking Benadryl 50 mg every 6 hours as needed for pruritus. Patient advised to continue taking pantoprazole. Patient understood and agreed with plan. - Diagnoses Provider Diagnoses: Allergic reaction Discharge - Sign-Out/Discharge Documenting (check all that apply): Patient Departure Patient Received Moderate/Deep Sedation with Procedure: No - Discharge Plan Condition: Stable Disposition: HOME Patient Education Materials: Urticaria (ED) Referrals: Tawana Young MD [Primary Care Provider] - Additional Instructions: Take Benadryl 50 mg every 6 hours until itchiness and rash resolves. Return to the ED for any new or worsening symptoms. - Billing Disposition and Condition Condition: STABLE Disposition: Home
== END 2018-11-12 20:55 | disposition home or self-care (01) ==
LOC: ED 16:18
DX: T78.40XA Allergy, unspecified, initial encounter (principal); X58.XXXA Exposure to other specified factors, initial encounter; Z88.0 Allergy status to penicillin; E11.9 Type 2 diabetes mellitus without complications; I10 Essential (primary) hypertension; K21.9 Gastro-esophageal reflux disease without esophagitis; J45.909 Unspecified asthma, uncomplicated; G47.30 Sleep apnea, unspecified; D75.0 Familial erythrocytosis; Z87.891 Personal history of nicotine dependence
CPT/HCPCS: 99282; A9270-GY; J7512

== ENCOUNTER 2018-11-29 09:35 | Day surgery (SDC) | payer OTHER ==
[~2018-11-29 09:35] MED LIST changes: -Buffered Lidocaine 0.9% SYRIN* 5 ML/SYR SYRINGE INTRADERM ONE; +Buffered Lidocaine 1% SYRIN* 1 ML/SYRINGE INTRADERM ONE; +Dexamethasone IV* 4 MG/ML 1 ML (4 MG) IV SLOW PU ONE; -DiMENhydriNATE IV* 50 MG/ML VIAL IV PUSH PRN; +Lactated Ringers 1000 ML Bag* 1,000 ML IV SCH; -Morphine INJ* 2 MG/ML 1 ML CARPUJECT IV PRN; -Naloxone* 0.4 MG/ML 1 ML VIAL IV PRN; -PROCHLORPERAZINE INJ 5 MG/ML 2 ML VIAL IV PRN; -Scopolamine 1.5 mg* PATCH TRANSDERM ONE; -fentaNYL* 50 MCG/ML 2 ML VIAL (100 MCG VIAL) IV PRN
[2018-11-29] MEDS ORDERED: Dexamethasone IV* 4 MG/ML 1 ML (4 MG) ONE (09:58)
[2018-11-29] MEDS ORDERED: Buffered Lidocaine 1% SYRIN* 1 ML/SYRINGE INTRADERM ONE (09:59)
[2018-11-29] MEDS ORDERED: Clindamycin 900 MG IVPREMIX(* 900 MG/50 ML SDV IV ONE (09:59)
[2018-11-29] MEDS ORDERED: Famotidine TAB* 20 MG ONE (09:59)
[2018-11-29] MEDS ORDERED: DiMENhydriNATE IV* 50 MG/ML VIAL IV PUSH PRN (10:41)
[2018-11-29] MEDS ORDERED: Acetaminophen TAB* 325 MG PO PRN (10:41)
[2018-11-29] MEDS ORDERED: Ketorolac INJ* 30 MG/ML 1 ML VIAL IV PRN (10:41)
[2018-11-29] MEDS ORDERED: PROCHLORPERAZINE INJ 5 MG/ML 2 ML VIAL IV PRN (10:41)
[2018-11-29] MEDS ORDERED: Naloxone* 0.4 MG/ML 1 ML VIAL IV PRN (10:41)
[2018-11-29 11:12] LABS: Urine Benzodiazepine Screen None Detected (None Detect); Urine Opiates Screen None Detected (None Detect)
[2018-11-29] MEDS ORDERED: Ondansetron INJ* 2 MG/ML VIAL ONE (11:47)
[2018-11-29] MEDS ORDERED: fentaNYL* 50 MCG/ML 5 ML VIAL (250 MCG VIAL) ONE (11:47)
[2018-11-29] MEDS ORDERED: Succinylcholine* 20 MG/ML 10 ML VIAL ONE (11:47)
[2018-11-29] MEDS ORDERED: Rocuronium* 10 MG/ML VIAL ONE (11:47)
[2018-11-29] MEDS ORDERED: Lidocaine 2% PF * 5 ML VIAL ONE (11:47)
[2018-11-29] MEDS ORDERED: Propofol* 10 MG/ML 20 ML BTL ONE (11:47)
[2018-11-29] MEDS ORDERED: Midazolam* 1 MG/ML 2 ML VIAL (2 MG) ONE (11:47)
[2018-11-29] MEDS ORDERED: fentaNYL* 50 MCG/ML 2 ML VIAL (100 MCG VIAL) ONE ×2 (12:12→13:10)
[2018-11-29] MEDS ORDERED: Neostigmine Methylsulfate* 3 MG/3 ML SYRINGE ONE (12:26)
[2018-11-29] MEDS ORDERED: Glycopyrrolate IV* 0.2 MG/ML 1 ML VIAL ONE (12:26)
--- NOTE | 2018-11-29 12:37 | OP ---
Operative Report - Blank - Operative Report Date of Operation: 11/29/18 Note: Brief Operative Note Preop Dx: right inguinal hernia Postop Dx: same; indirect Procedure: laparoscopic repair RIH w/ mesh Anesthesia: GET Surgeon: Ovidio Asphalt Spreader: SERENA Nam Fluids: 1400 ml EBL: 20 ml Specimen: none Drains: none Findings: dictated
[2018-11-29] MEDS ORDERED: Ketorolac INJ* 30 MG/ML 1 ML VIAL ONE (13:10)
[2018-11-29] MEDS: fentaNYL* 50 MCG/ML 2 ML VIAL (100 MCG VIAL) IV PRN ×2 (13:13→13:42)
[2018-11-29] MEDS ORDERED: PROCHLORPERAZINE INJ 5 MG/ML 2 ML VIAL ONE (13:16)
[2018-11-29] MEDS ORDERED: oxyCODONE/Acetamin 5/325 MG* TAB ONE (13:44)
[2018-11-29] MEDS ORDERED: HYDROcodone/ACETAMIN 5-325 MG* 1 TAB ONE ×2 (13:46→14:59)
[2018-11-29] MEDS: HYDROcodone/ACETAMIN 5-325 MG* 1 TAB PO PRN ×2 (13:47→14:59)
[2018-11-29 15:00] VITALS: BP 123/72
--- NOTE | 2018-11-29 23:11 | OP ---
CC: Dr. Tawana Young; [facility] * DATE OF OPERATION: 11/29/18 - [facility] DATE OF : 66 SURGEON: Derick Nolan MD SPECIAL EDUCATION CLASSROOM AIDE: SERENA Moreno ANESTHESIOLOGIST: Dr. Rene. ANESTHESIA: General anesthesia. PRE-OP DIAGNOSIS: Right inguinal hernia. POST-OP DIAGNOSIS: Right inguinal hernia. OPERATIVE PROCEDURE: Laparoscopic right inguinal hernia repair with mesh. ESTIMATED BLOOD LOSS: Less than 20 cc. FLUIDS: Crystalloid fluid given. SPECIMENS: None. INDICATIONS: Starr is a 48-year-old transitioning from male to female who underwent weight loss surgery a year ago, has done very well, who is noted to have upper abdominal pain and then also an inguinal hernia on followup appointments. My recommendation at the time of the office was to perform a laparoscopic right inguinal hernia repair with mesh and also do a diagnostic laparoscopy. Part of my workup was to send the patient for an EGD, this was performed and multiple small gastric pouch ulcers were identified. These were non-H. pylori and also nonmalignant. The patient was started on proton pump inhibitor and stated today in the preoperative area that the patient's upper abdominal pain has resolved. This had been almost 1 month of pain. For this reason, I recommended just doing the hernia repair and not performing laparoscopy, noting that there would be adhesions and that the patient was no longer suffering with a preoperative diagnosis of abdominal pain. She agreed and consent was signed. DESCRIPTION OF PROCEDURE: The patient was taken to the operating room, placed on the operating table in the supine position. Preoperative antibiotics were given. Sequential devices were placed on the bilateral lower extremities. General anesthesia was induced. The patient's abdomen was clipped of hair and prepped and draped in a standard surgical fashion and a time-out was performed. A lower incision was made where the patient's previous umbilicus was right over the rectus fascia on the left. This rectus fascia was incised and the rectus pillar was retracted medially and we entered into the preperitoneal plane. This was bluntly dissected with a finger and then a 12 mm blunt port was placed in this. The dissected area was allowed to insufflate to a pressure of 12 mmHg, tolerated insufflation well. Camera was placed through this and additional blunt dissection was carried out right down to the pubic symphysis. Additional trocars were then placed under direct vision in the midline, two 5 mm trocars. Next, we were able to dissect the loose areolar tissue overlying Binh's ligament left and right as well as in the lower midline to make a better working space. The Binh's ligament on the right revealed no evidence of a direct hernia above this. The epigastric vessels were identified, maintained anteriorly. We opened up into space of Bogros laterally and identified the peritoneum, which extended towards the sac into the deep ring. This was bluntly dissected [id number]. We did get an open injury in it early on in its course, but there was significant amount of additional hernia sac we were able to fully reduce. We did get some bleeding along some of the vasculature along the spermatic cord, but this was controlled with some cautery and also pressure. Next, with the area cleaned off, we placed a medium sized Bard 3DMax mesh into the space and allowed it to unfurl. We tacked it just above the pubic tubercle and then Binh's ligament on the right and then laterally through the safe area , covering up the full myopectineal orifice and making sure the mesh was not too tight or loose. We allowed the preperitoneal plane to collapse. Trocars removed under direct vision. Next, I dissected down to the posterior fascia. We incised this along the peritoneum to allow the gas that had entered into the abdomen to escape. Once this escaped, we did close up the posterior fascia with 2-0 Vicryl stitch followed by a 0 Vicryl at the anterior fascia at the periumbilical port site and then closed all 3 skin incisions with 4-0 Monocryl subcuticular sutures followed by Steri-Strips and sterile dressing. The patient tolerated the procedure well, was woken up in the OR and transferred to PACU in stable condition. [id number]/[facility] #: [id number] SURESH
== END 2018-11-29 15:10 | disposition home or self-care (01) ==
LOC: OR 09:35 → EDSEX 12:00 → OR 15:10
PROVIDERS: ATTEND Surgery
DX: K40.90 Unilateral inguinal hernia, without obstruction or gangrene, not specified as recurrent (principal); R10.13 Epigastric pain; E11.9 Type 2 diabetes mellitus without complications; I10 Essential (primary) hypertension; E66.01 Morbid (severe) obesity due to excess calories; G47.33 Obstructive sleep apnea (adult) (pediatric); Z87.891 Personal history of nicotine dependence; Z88.0 Allergy status to penicillin; Z88.8 Allergy status to other drugs, medicaments and biological substances; Z98.84 Bariatric surgery status
CPT/HCPCS: 80307; A9270-GY; C1781; J0330; J0780; J1100; J1885; J2250; J2405; J2704; J2710; J3010

== ENCOUNTER 2018-11-29 19:01 | Emergency (ER) | payer OTHER ==
--- NOTE | 2018-11-29 19:09 | ED ---
Complex/Multi-Sys Presentation - HPI Summary HPI Summary: A 48 y/o M brought in by ambulance presents to ED with c/o abd bleeding s/p hernia repair this AM with Dr. Nolan, surgery. Pt went home and was told not to lift anything, but lifted approx 25 lbs. She noticed the dressing was covered in blood. At bedside, dressing was removed and the site was not actively bleeding. - History Of Current Complaint Hx Obtained From: Patient Onset/Duration: Sudden Onset, Still Present Timing: Constant Severity Currently: Mild Severity Initially: Mild Associated Signs And Symptoms: Negative: Fever - Allergies/Home Medications Allergies/Adverse Reactions: Allergies Allergy/AdvReac Type Severity Reaction Status Date / Time amoxicillin [From Augmentin] Allergy Hives Verified 11/29/18 10:16 clavulanic acid Allergy Hives Verified 11/29/18 10:16 [From Augmentin] cillins Allergy anaphylacti Uncoded 11/29/18 10:16 s PMH/Surg Hx/FS Hx/Imm Hx Previously Healthy: No Endocrine/Hematology History: Reports: Hx Blood Disorders - familial polycythemia, Hx Diabetes - TYPE II- ORAL MEDICATION FOR Cardiovascular History: Reports: Hx Hypertension - ON MEDICATION FOR Denies: Hx Pacemaker/ICD, Other Cardiovascular Problems/Disorders Respiratory History: Reports: Hx Asthma, Hx Sleep Apnea - home machine Denies: Other Respiratory Problems/Disorders GI History: Reports: Hx Gastroesophageal Reflux Disease - ROUTINE MEDICATION FOR , Hx Hiatal Hernia - repaired Denies: Other GI Disorders History: Denies: Hx Renal Disease, Other Problems/Disorders Musculoskeletal History: Reports: Hx Back Problems, Other Musculoskeletal History - C4-5 BONE SPUR- HAD SURGERY FOR-10+YEARS AGO Denies: Hx Rheumatoid Arthritis, Hx Osteoporosis Sensory History: Reports: Hx Contacts or Glasses Denies: Hx Hearing Aid Opthamlomology History: Reports: Hx Contacts or Glasses Neurological History: Denies: Hx Dementia, Other Neuro Impairments/Disorders Psychiatric History: Reports: Hx Substance Abuse - crack, quit 30 years agof - Surgical History Surgery Procedure, Year, and Place: neck surgery. "umbillicus was removed" d/t hernia surgery. Hx Anesthesia Reactions: Yes - DIZZINESS AND LIGHTHEADED Infectious Disease History: Denies: History Other Infectious Disease - Family History Known Family History: Positive: Blood Disorder Negative: Respiratory Disease - Social History Occupation: Unemployed Lives: Alone Alcohol Use: Rare Alcohol Amount: 8 per year Hx Substance Use: No Substance Use Type: Reports: None Substance Use Comment - Amount & Last Used: hx of crack use 30 years ago Hx Tobacco Use: Yes Smoking Status (MU): Former Smoker Amount Used/How Often: 2 PPD X 30 YEARS Have You Smoked in the Last Year: No Review of Systems Negative: Fever Skin: Other - pos: bleeding from surgical incision at abd, resolved [employer]SE [employer] All Other Systems Reviewed And Are Negative: Yes Physical Exam - Summary Physical Exam Summary: Appearance: Well-appearing, Well-nourished, lying in bed comfortable Skin: Warm, dry, no obvious rash Eyes: sclera anicteric, no conjunctival pallor ENT: mucous membranes moist Neck: deferred Respiratory: No signs of respiratory distress Cardiovascular: Appears well perfused, pulses are nml Abdomen: Fresh laproscopy scars on abd with saturated dressing, which was removed. No active bleeding. Musculoskeletal: Moving all 4 extremities without obvious discomfort Neurological: Awake and alert, mentation is normal, speech is fluent and appropriate Psychiatric: affect is normal, does not appear anxious or depressed Triage Information Reviewed: Yes Vital Signs Reviewed: Yes Complex Multi-Symp Course/Dx Course Of Treatment: Pt is a 48 y/o M presenting with abd bleeding s/p hernia repair this AM with Dr. Nolan, surgery. Pt went home and was told not to lift anything, but lifted approx 25 lbs. No active bleeding in ED. Will discharge patient home. - Diagnoses Provider Diagnoses: Bleeding from wound Discharge - Sign-Out/Discharge Documenting (check all that apply): Patient Departure - DC Patient Received Moderate/Deep Sedation with Procedure: No - Discharge Plan Condition: Good Disposition: HOME Referrals: Derick Nolan MD [Medical Doctor] - If Needed Tawana Young MD [Primary Care Provider] - Additional Instructions: It looks like the excessive lifting you did caused some transient bleeding about your wound, but it appears to have stopped on its own. We have cleaned it and put a fresh dressing on it, and it should be fine as long as you rest it and limit your activity through tomorrow. Call Dr. Nolan's office tomorrow and let them know what happened and how you are doing now. - Billing Disposition and Condition Condition: GOOD Disposition: Home - Attestation Statements Document Initiated by Scribe: Yes Documenting Scribe: Ursula Lester Provider For Whom Getachew is Documenting (Include Credential): Dr. Handy Downey MD Scribe Attestation: I, Ursula Lester, scribed for Dr. Handy Downey MD on 12/02/18 at 0639. Scribe Documentation Reviewed: Yes Provider Attestation: The documentation as recorded by the Ursula cardoza accurately reflects the service I personally performed and the decisions made by me, Dr. Handy Downey MD Status of Scriggye Document: Viewed
--- OUTSIDE RECORDS SUMMARY | 2018-11-29 19:22 | XMS REPORT | Continuity of Care Document ---
:1970 Author Organization [facility] Address [address], [place] [id number] Phone Care Team Providers Name Role Phone Milka Lopez NP Unavailable Unavailable Allergies, Adverse Reactions, Alerts Substance Reaction Status Penicillins Anaphylaxis Active Medications Medication Instructions Dosage Effective Dates Status Comments (start - stop) estradiol 2 mg take 1 Tablet by 1 Tablet - Active tablet Sublingual route 2 times every day BD Luer-Dl Syringe Use as directed to - Active 1 mL 20 gauge x 1" draw up estradiol needle (disp) 23 Use as directed to - Active gauge x 1" inject estradiol IM Delestrogen 40 mg/mL inject 0.2 8 MG - Active intramuscular oil milliliter by intramuscular route every week Truvada 200 mg-300 TAKE 1 TABLET BY - Active mg tablet MOUTH EVERY DAY finasteride 5 mg take 1 tablet by 5 MG - Active tablet oral route every day Vitamin B-1 250 mg - Active tablet SYMBICORT (unknown Not Available - Active strength) BREO ELLIPTA Not Available - Active (unknown strength) PANTOPRAZOLE SODIUM Not Available - Active (unknown strength) VITAMIN B-12 Not Available - Active (unknown strength) LISINOPRIL-HYDROCHLO Not Available - Active ROTHIAZIDE (unknown strength) Problems Condition Effective Dates Clinical Status Comments (start - stop) Body mass index (BMI) - 40.0-44.9, adult Endocrine disorder, unspecified Transsexualism Human immunodeficiency virus - [HIV] counseling 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 Encntr screen for infections w sexl mode of transmiss Encounter for screening for - human immunodeficiency virus Transsexualism 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 Encntr screen for infections [...] infections w sexl mode of transmiss Other residential (current) 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 Encounter for screening for - human immunodeficiency virus Hyperkalemia Transsexualism Human immunodeficiency virus - [HIV] counseling Encntr screen for infections w sexl mode of transmiss Encounter for screening for - human immunodeficiency virus 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 Human immunodeficiency virus - [HIV] counseling Other residential (current) 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 Encntr screen for infections [...] sexual behavior - Active On PrEP/Started 06/2017 Mkbr-cy-[id number] transsexual - Active Procedures Procedure Date No information Results Test Name Date and Time Measure Units Reference Range Abnormal Flag Status Comments No information Advance Directives Directive Yes / No Effective Date File Name No information Encounters Encounter Practice Location Reason(s) Diagnoses Date Provider Providers Description For Visit Copied on Encounter [facility] [place] . [address], [place], [place], [place], [address]. [address] tel:[phone] [facility], [address] [place], [id number], [place] tel:[phone] [facility] Endocrine Nov- Familia Mojica. [facility] [place] disorder, [address] Provider: [facility] unspecifiedTrans 9 , [place], [place], [address], [place], [place], [address] [place]. [address], [address], [place], [place], [address]. [id number], [place] tel:[phone] [facility] Human Mar-2 Familia Mojica. [facility] [place] immunodeficiency [address] Provider: [facility] virus [HIV] 9 , [place], [place], [address], [place], [place], [address] terminal operator [place]. [address] (current) drug , [facility], therapyEncntr [place], [address]. [id number], infections w [place] sexl mode of tel:[phone] transmissEncount [phone] er for screening for human immunodeficiency virus [facility] Transsexualism Familia Mojica. [facility] [place] [address] Provider: [facility] 9 , [place], [place], [address], [place], [place], [place]. [address], St, [place], [place], [id number], [address].Cons [place] ulting tel:[phone] Provider: [id number] [place]URSE [place] [facility]. [facility] 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 Ish-0 Familia Mojica. [facility] [place] (current) drug [address] Provider: [facility] therapyEncntr [address], [place], [place], [address], [place], [place], [place] infections w [place]. [address] sexl mode of St, St, [place], transmissEncount [place], [address]. [id number], for human [place] immunodeficiency tel:[phone] virusHuman [phone] immunodeficiency virus [HIV] counseling [facility] Encounter for Loida [facility] [place] oth screening Nicolette. 620 Provider: Hailey for malignant [address], [place] neoplasm of [place], [place] J, [place], [address] breast [address], [place]. [address] tel:[phone] [address], St, [place], [address] [place], [address]. [id number], tel:[phone] tel:[phone] [facility] TranssexualismEn Nov- White Galina. [facility] [place] docrine [address] Provider: Hailey disorder, [address], [place], [place], [address], [place], 620 [place], 620 nter for oth [place]. [address] general cnsl and St, St, [place], advice on [place], [place], [place], [address]. [id number], ntr screen for [place] infections w tel:[phone] sexl mode of [phone] transmiss [facility] May-2 Familia Mojica. [facility] [place] [address], [place], [place], [address], [place], [address] [place], [place], [place], [id number], [place] tel:[phone] [facility] Human Oct- Osmin [facility] [place] immunodeficiency 5-201 Marie. 620 W Provider: Hailey virus [HIV] [address], [place] counselingEncoun [place], Raphaelidi [facility], [address] [place] [address]. s, [address] screening for tel:[phone] [address], St, [place], human [address] [place], [address]. [id number], virusEncounter tel:[phone] [place] for [phone] tel:[phone] preprocedural [phone] laboratory examinationEncnt r screen for infections w sexl mode of transmiss [facility] Human Feb- [place]-Hem [facility] [place] immunodeficiency 4-201 juanita Sueane. Provider: [place] virus [HIV] 8 [address] Sueane [place] counselingEncntr , [place], [place]-H [facility], [address] [place], [address]. emmer, [address] infections w tel:[phone], [place], [place] [address] [place], [place], transmissOther [place], [id number], [place], [address]. [place] (current) drug tel:+[phone] tel:[phone] therapyEncounter [phone] for screening for human immunodeficiency virus [facility] Hyperkalemia December- Borglum [facility]erring [facility] [place] 2- [place]. [facility] Provider: [address], [place], [place], [place], [facility], [facility] [address], [place]. [address] tel:[phone] [address], St, [place], [address] [place], [address]. [id number], tel:[phone] [place] [phone] tel:[phone] [facility] Transsexualism December- Raphaelidis [facility] [place] 1- Marie. 620 W Provider: [address], [place], Raphael[facility], [address]. s, [address] tel:[phone] [address], St, [place], [address] [place], [address]. [id number], tel:[phone] [place] [phone] tel:[phone] [facility] Human May-0 Raphaelidis [facility] [place] immunodeficiency 4-201 Marie. 620 W Provider: [place] virus [HIV] [address], [place] counselingEncntr [place], [place], [address] [place] [address]. s, [address] infections w tel:[phone] [address], St, [place], [place] [address] [place], [place], [address]. [id number], er for screening tel:[phone] [place] for human [phone] tel:[phone] immunodeficiency [phone] virus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 [facility] Human Sep- Familia Mojica. [facility] [place] immunodeficiency 2- [address] Provider: [facility] virus [HIV] [address] St, [place], [place], [address], [place], [place], 620 terminal operator [place]. [address] (current) drug St, St, [place], therapyEncntr [place], [address]. [id number], infections w [place] sexl mode of tel:[phone] transmissEncount [phone] er for screening for human immunodeficiency virus [facility] Endocrine Familia Mojica. [facility] [place] disorder, [address] Provider: [facility] unspecifiedTrans [address] St, [place], [place], [address], [place], [place], [place]. [address], St, [place], [place], [address]. [id number], [place] tel:[phone] [facility] Encntr screen Nov-3 Familia Mojica. [facility] [place] for infections w 0- [address] sexl mode of [address], [place], [place], [address], [place], [address], [place], [place], [id number], [place] tel:[phone] [facility] Encounter for Nov-2 Familia Mojica. [facility] [place] preprocedural [address] Provider: [facility] laboratory [address], [place], [place], [address], [place], [place], [place] immunodeficiency [place]. [address] virus [HIV] St, St, [place], counselingEncoun [place], [address]. [id number], screening for [place] human tel:[phone] immunodeficiency [phone] virusEncntr screen for infections w sexl mode of transmissEncount er for screening for other viral diseasesTranssex ualismEndocrine disorder, unspecified [facility] May- [place] Galina. [facility] [place] [address], [place], [place], [address], [place], [address], [place], [place], [id number], [place] tel:[phone] [facility] Human May- [facility] [place] immunodeficiency Milka. [address] virus [HIV] [address], [place] counselingEncoun [place], [facility], [address] [place] [address]. [address] screening for tel:[phone] St, [place], human [address] [place], immunodeficiency [id number], virusTranssexual [place] ismEncntr screen tel:[phone] for infections w [phone] sexl mode of transmiss [facility] Endocrine Feb- Familia Mojica. [facility] [place] disorder, [address] unspecifiedTrans [address], [place], [place], [address], [facility], 620 mass index (BMI) [place]. [address] 40.0-44.9, adult St, [place], [place], [id number], [place] tel:[phone] [facility] TranssexualismDi Nov- [facility] [place] etary counseling Febia. [address], [place] surveillanceOthe [place], [facility], 620 r specified [address]. [address] counseling tel:+[phone] St, [place], [address] [place], [id number], [place] tel:[phone] [facility] Gender identity Apr- Borglum [facility] [place] disorder in [place]. [address] adolescence and [address], [place] adulthoodEndocri [place], [place], [facility], 620 ne disorder, [address], [place]. [address] unspecifiedEleva tel:[phone] St, [place], [place] [address] [place], blood-pressure [id number], reading, w/o [place] diagnosis of tel:+[phone] htnBody mass [id number] index (BMI) 40.0-44.9, adult [facility] TranssexualismEn [facility] [place] docrine 7-201 Milka. [address] disorder, [address], [place] unspecifiedEleva [place], [place], [address] payal [address]. [address] blood-pressure tel:+[phone] St, [place], [place], [place]/o [address] [place], diagnosis of htn [id number], [place] tel:[phone] Family History Family Member Diagnosis Age At Onset Mother Cancer, breast 66 Sister Substance abuse Father Brain cancer (Cause Of ) Immunizations Vaccine Date Status Comments No information Payers Payer name Insurance type Covered alliance party ID Authorization(s) No information Social History Type Description Quantity Date Captured Comments Alcohol Use Details Unknown Caffeine Use Details Unknown Tobacco Use Status Unknown Smoking Status Former smoker Sex Male Vital Signs Date / Height Weight BMI Pulse Blood Temperature Respiratory Body Head BMI Pulse Inhaled Time: Rate Pressure Rate Surface Circumference percentile Ox Ox Area No information Chief Complaint And Reason For Visit No information Reason For Referral Reason For Referral No information Plan Of Treatment Date Type Action Status Goal Dietary management education, guidance, and completed counseling Goal Tobacco cessation counseling completed Appointment OPAL AIKEN INJ TRAINING BOOKED History Of Present Illness Encounter Date Complaint [...] Date No information Medical Equipment Description Device [place] Device Identifier Effective Dates (start - stop ) Status No information Mental Status Date Cognitive Assessment No information Health Concerns Observation Date No information Concern Status Date No information
--- OUTSIDE RECORDS SUMMARY | 2018-11-29 19:22 | XMS REPORT | Continuity of Care Document ---
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 Encntr screen for infections w sexl mode of transmiss Encounter for screening for - human immunodeficiency virus Transsexualism 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 Encntr screen for [...] infections w sexl mode of transmiss 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 Encounter for screening for - human immunodeficiency virus Hyperkalemia Transsexualism Human immunodeficiency virus - [HIV] counseling Encntr screen for infections w sexl mode of transmiss Encounter for screening for - human immunodeficiency virus Other jail (current) 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 Human immunodeficiency virus - [HIV] counseling Other jail (current) 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 Encntr screen for infections [...] sexual behavior - Active On PrEP/Started 06/2017 Qowq-qf-dfuidv transsexual - Active Procedures Procedure Date No information Results Test Name Date and Time Measure Units Reference Range Abnormal Flag Status Comments No information Advance Directives Directive Yes / No Effective Date File Name No information Encounters Encounter Practice Location Reason(s) Diagnoses Date Provider Providers Description For Visit Copied on Encounter [facility] [place] Nicolette. [address], [place], [place], [place], [address], [place]. [place] tel:[phone] St, [place], [address] [place], [id number], [place] tel:[phone] [facility] Endocrine Familia Mojica. [facility] [place] disorder, [address] Provider: [facility] unspecifiedTrans [address] St, [place], [place], [address], [place], 620 [place], 620 [place]. [address], St, [place], [place], [address]. [id number], [place] tel:[phone] [facility] Human Mar-2 Familia Mojica. 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 [place] (current) drug St, , [place], therapyEncntr [place], [place], [address]. [id number], infections w [place] sexl mode of tel:[phone] transmissEncount [phone] er for screening for human immunodeficiency virus [facility] Transsexualism Familia Mojica. [facility] [place] [address] Provider: [facility], [place], [address], [place], 620 [place], 620 [place]. [address], St, [place], [place], [id number], [address].Cons [place] ulting tel:[phone] Provider: [id number] NURSE [place] [facility]. [facility] Other jail Familia Mojica. [facility] [place] (current) drug [address] Provider: [facility] therapyEncntr [address], [place], [place], [address], [place], 620 [place], 620 infections w [place]. [place] sexl mode of St, St, [place], transmissEncount [place], [address]. [id number], for human [place] immunodeficiency tel:[phone] virusHuman [id number] immunodeficiency virus [HIV] counseling [facility] Encounter for Nov- [facility] [place] oth screening Nicolette. 620 Provider: [facility] for malignant [address], Nicolette [place] neoplasm of [place], [place] J, [place], 620 breast [address], [place]. [address] tel:[phone] [address], St, [place], [address] [place], [address]. [id number], tel:[phone] [place] [phone] tel:[phone] [facility] TranssexualismEn Nov- Familia Mojica. [facility] [place] docrine [address] Provider: [facility] disorder, [address] St, [place], [place], [address], [place], 620 [place], 620 nter for oth [place]. [place] general cnsl and St, St, [place], advice [place], [place], [place], [address]. [id number], ntr screen for [place] infections w tel:[phone] sexl mode of [id number] transmiss [facility] May-2 Familia Mojica. [facility] [place] [address], [place], [place], [address], [place], [address], [place], [place], [id number], [place] tel:[phone] [facility] Human Oct- Osmin [facility] [place] immunodeficiency Marie. 620 W Provider: Hailey virus [HIV] [address], [place] counselingEncoun [place], [place], [place], [address] [place] [address]. s, [address] screening for tel:[phone], St, [place], human [address] [place], [place], [place], [address]. [id number], virusEncounter tel:[phone] [place] for [phone] tel:[phone] preprocedural [id number] laboratory examinationEncnt r screen for infections w sexl mode of transmiss [facility] Human Feb- Goodreau-Hem [facility]erring [facility] [place] immunodeficiency 4-201 juanita Sueane. Provider: [place] virus [HIV] 8 [address] [place]ane [place] counselingEncntr , [place], [place]-H [facility], 620 [place], [address]. emmer, [address] infections w tel:[phone] [address], [place], [place] [address] [place], [place], transmissOther [place], [id number], [place], [address]. [place] (current) drug tel:[phone] tel:[phone] therapyEncounter [phone] [phone] for screening for human immunodeficiency virus [facility] Hyperkalemia December- Borglum [facility] [place] 2 Florinda. 620 Provider: [address], [place], [place], [place], [facility], [address], [place]. [address] tel:[phone] [address] [address] [place], [place], [address]. [id number], tel:[phone] [place] [phone] tel:[phone] [facility] Transsexualism December- Raphaelidis [facility]erring [facility] [place] 1 Marie. 620 W Provider: Southern [address], [place], [place], [facility], [address]. s, [address] tel:[phone] [address], St, [place], [address] [place], [address]. [id number], tel:[phone] [place] [phone] tel:[phone] [facility] Human May-0 Raphaelidis Referring [facility] [place] immunodeficiency 4-201 Marie. 620 W Provider: Southern virus [HIV] [address], [place] counselingEncntr [place], [place], 620 [place] [address]. s, [address] infections w tel:[phone], [place], [place], [place] [address] [place], [place], [address]. [id number], er for screening tel:[phone] [place] for human [phone] tel:[phone] immunodeficiency [id number] virusOther jail (current) 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 [facility] Human Sep- Familia Mojica. 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 [id number], infections w [place] sexl mode of tel:[phone] transmissEncount [phone] er for screening for human immunodeficiency virus [facility] Endocrine Familia Mojica. [facility]erring [facility] [place] disorder, [address] Provider: [facility] unspecifiedTrans 8 St, [place], [place], [address], [place], 620 [place], 620 [place]. [address] [place] [address], St, [place], [place], [address]. [id number], [place] tel:[phone] [facility] Encntr screen Nov-3 Familia Mojica. [facility] [place] for infections w 0 [address] Southern sexl mode of [address], [place], [place], [address], [place], [address], [place], [place], [id number], [place] tel:[phone] [facility] Encounter for Nov-2 Familia Mojica. [facility]erring [facility] [place] preprocedural [address] Provider: [facility] laboratory [address] St, [place], [place], [address], [place], 620 [place], 620 immunodeficiency [place]. [place] virus [HIV] St, St, [place], counselingEncoun [place], [place], [address]. [id number], screening for [place] human tel:[phone] immunodeficiency [phone] virusEncntr screen for infections w sexl mode of transmissEncount er for screening for other viral diseasesTranssex ualismEndocrine disorder, unspecified [facility] May- Familia Mojica. [facility] [place] [address], [place], [place], [address], [place], [address], [place], [place], [id number], [place] tel:[phone] [facility] Human May- P[facility]te [facility] [place] immunodeficiency Milka. [address] virus [HIV] [address], [place] counselingEncoun [place], [place], [facility], [address] [place] [address]. [address] [place] screening for tel:[phone] St, [place], human [address] [place], immunodeficiency [id number], virusTranssexual [place] ismEncntr screen tel:[phone] for infections w [phone] sexl mode of transmiss [facility] Endocrine Feb- Familia Mojica. [facility] [place] disorder, [address] unspecifiedTrans [address], [place], [place], [address], [facility], 620 mass index (BMI) [place]. [place] 40.0-44.9, adult St, [place], [place], [id number], [place] tel:[phone] [facility] TranssexualismDi Nov- P[facility]te [facility] [place] etary counseling Febia. [address], [place] surveillanceOthe [place], [place], [facility], 620 r specified [address]. [address] [place] counseling tel:+[phone] St, [place], [address] [place], [id number], [place] tel:[phone] [facility] Gender identity Apr-0 Borglum [facility] [place] disorder in [place]. [address] adolescence and [address], [place] adulthoodEndocri [place], [place], [facility], 620 ne disorder, [address], [place]. [address] [place] unspecifiedEleva tel:[phone] St, [place], [place]al [address] [place], blood-pressure [id number], reading, w/o [place] diagnosis of tel:[phone] htnBody mass 338272 index (BMI) 40.0-44.9, adult [facility] TranssexualismEn P[facility] [place] docrine 7-201 Milka. [address] disorder, [address], [place] unspecifiedEleva [place], [place], [place], 620 payal [address]. [address] [place] blood-pressure tel:[phone] St, [place], [place], [place] [address] [place], diagnosis of htn [id number], [place] tel:[phone] Family History Family Member Diagnosis Age At Onset Mother Cancer, breast 66 Sister Substance abuse Father Brain cancer (Cause Of ) Immunizations Vaccine Date Status Comments No information Payers Payer name Insurance type Covered green party ID Authorization(s) No information Social History [...] completed Goal Dietary management education, guidance, and completed counseling Appointment OPAL [facility] TRAINING BOOKED History Of Present Illness Encounter [...] Date No information Medical Equipment Description Device [place] Device Identifier Effective Dates (start - stop ) Status No information Mental Status Date Cognitive Assessment No information Health Concerns Observation Date No information Concern Status Date No information
--- OUTSIDE RECORDS SUMMARY | 2018-11-29 19:22 | XMS REPORT | Continuity of Care Document ---
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 Shahid Villeda MD Primary Care Physician Unavailable Payers Date Identification Numbers Payment Provider Subscriber Effective: 2016 Policy Number: [id number] [facility] Arvizu PayID: [id number] [address] [place] [address] Advance Directives Description No Information Available Problems Date Description Provider Status Onset: 06/13/2017 Asthma without status asthmaticus SIMA Moura Active Onset: 06/13/2017 Type 2 diabetes mellitus SIMA Moura Active Onset: 11/21/2018 Nausea and vomiting Ebony Hernandez PA-C Active Onset: 11/21/2018 History of gastrointestinal tract JAVED Koch Active bypass Onset: 11/21/2018 Greenberg's esophagus Ebony Hernandez PA-C Active Onset: 11/21/2018 Epigastric pain Ebony Hernandez PA-C Active Family History Description No Information Available Social History Type Date Description Comments Sex Unknown ETOH Use Rarely consumes alcohol Tobacco Use Start: Unknown End: Unknown Patient is a former smoker Smoking Status Reviewed: 11/21/18 Patient is a former smoker Allergies, Adverse Reactions, Alerts Date Description Reaction Status Severity Comments 10/16/2014 Penicillin Active Medications Medication Date Status Form Strength Qnty SIG Indications Ordering Provider Estradiol / Active Tablets 1mg Parete,Feb ia,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 Spironolactone / Active Tablets 100mg Parete,Feb ia,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 Lisinopril / Active Tablets 5mg Breiman, 0000 MD Francisco Pantoprazole / Active Tablets DR 40mg 1 by Unknown Sodium 0000 mouth every day Symbicort / Hx Aerosol 160-4.5mcg Shari, 0000 - /Act MD Francisco 2018 Invokana / Hx Tablets 100mg Breimajessica, 0000 - MD Francisco 2018 Oxycodone HCL / Hx Tablets 10mg Mirian Bradford 0000 - dy, 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 2018 Omeprazole / Hx Capsules 40mg bid Breiman, 0000 - DR Francisco MD 2018 Breo Ellipta / Hx Aerosol 200-25mcg/ Inhale 1 Unknown 0000 - Inh puff 11/21/ 2018 Day Immunizations Description No Information Available Vital Signs Date Vital Result Comment 11/21/2018 10:45am Height 65 inches 5'5" Weight 174.00 lb BP Systolic 123 mmHg BP Diastolic 81 mmHg Heart Rate 51 /min BMI (Body Mass Index) 29.0 kg/m2 08/01/2017 11:22am Height 65 inches 5'5" Weight 245.00 lb BMI (Body Mass Index) 40.8 kg/m2 06/13/2017 9:34am Height 65 inches 5'5" Weight 244.00 lb BMI (Body Mass Index) 40.6 kg/m2 Results Test Date Facility Test Result H/L Range Note Xray 11/05/2018 [facility], Abd & Pelvis <pending> W/ Contrast Laboratory test 06/30/2017 [facility] Surgical SEE RESULT 1 finding Pathology BELOW Xray 04/05/2017 [facility] US Gallbladder <pending> Laboratory test 03/28/2017 [facility] Hemoglobin A1c <pending> finding (!) Xray 01/28/2017 [facility] Upper GI <pending> Laboratory test 12/07/2016 [facility] Hemoglobin A1c <pending> finding (!) CMP(!) 12/07/2016 [facility] Sodium(!) <pending> Potassium(!) <pending> Chloride Serum/Plasma(!) <pending> Carbon Dioxide Ser/Plasm(!) <pending> BUN - Urea Nitrogen(!) <pending> Calcium Ser/Plasma Mass/Vol(!) <pending> Creatinine Serum Mass/Vol(!) <pending> Glucose Serum(!) <pending> Uric Acid Ser/Plas Mass/Vol(!) <pending> BUN/Creatinine Ratio(!) <pending> Albumin Serum/Plasma(!) <pending> Alkaline Phosphatase(!) <pending> Bilirubin Total Mass/Vol(!) <pending> Ast - Sgot <pending> Alt - SGPT <pending> Protein Total <pending> Iron/Uibc/Tibc/%Sat 12/07/2016 [facility] Iron-Total <pending> Iron-Uibc <pending> Iron Binding Capacity Mass/Vol <pending> % Iron Saturation <pending> Laboratory test 12/07/2016 [facility] Ferritin Ser/Plas <pending> finding Mass/Vol(!) Vitamin B12 Ser Mass/Vol <pending> Folate Serum <pending> TSH Thyroid Stim Hormone(!) <pending> CBC W/Auto 12/07/2016 [facility] White Blood <pending> Differential(!) Count Ser Auto CNT RBC Red Blood Count <pending> Hemoglobin Blood <pending> Hematocrit <pending> MCV (Corpuscular Volume) <pending> MCH (Corpuscular Hemoglobin) <pending> MCHC (Corpuscular Hemog Conc) <pending> RDW <pending> Platelet Count Blood Auto CNT <pending> MPV <pending> Lymph% <pending> Van Zandt% <pending> Neutrophil % <pending> Absolute Lymphocytes <pending> Absolute Monocytes <pending> Absolute Neutrophils <pending> 1 SEE RESULT BELOW Name: HOMERO ARVIZU : [address]: Clare Bland DO Acct: [id number] Unit: [id number] AGE: 47 Location: [facility] Re06/30/17 SEX: M Status: DEP REF SPEC: [id number] COLLINS: 06/30/17- [facility] DR: Clare Bland DO REQ: [id number] RECD: 06/30/17 STATUS: ADELAIDE RAO DR: Derick Nolan MD _ ORDERED: LEVEL 4/3 FINAL DIAGNOSIS 1. Duodenum, biopsy: -- Benign [...] duodenum with biopsy to rule out celiac GROSS DESCRIPTION 1. The specimen is received [...] 0.3 x 0.2 x 0.1 cm which CONTINUED ON NEXT PAGE * ML=Testing performed at Main Lab DEPARTMENT OF PATHOLOGY, [address] [place] [address] Joseph Whelan M.D. Director [facility] # [id number] RUN DATE: 07/01/17 [facility] LAB LIVE PAGE 2 Patient: HOMERO ARVIZU [id number] (Continued) GROSS DESCRIPTION (Continued) GROSS DESCRIPTION (Continued) are submitted entirely in one cassette. 3. The specimen is received in formalin labeled, Biopsy [facility], and consists of a 0.7 x 0.6 x 0.1 cm aggregate of ramírez-pink irregular soft tissue fragments which is submitted entirely in one cassette. Signed (signature on file) Dotty Pham MD 1200 END OF REPORT * ML=Testing performed at Main Lab DEPARTMENT OF PATHOLOGY, [address] [place] [address] Joseph Whelan M.D. Director [facility] # [id number] SEE RESULT BELOW Name: HOMERO ARVIZU : [address]: Clare Bland DO Acct: [id number] Unit: [id number] AGE: 47 Location: ENDO Re06/30/17 SEX: M Status: DEP REF SPEC: [id number] COLLINS: 06/30/17- [facility] DR: Clare Bland DO REQ: [id number] RECD: 06/30/17 STATUS: ADELAIDE RAO DR: Derick Nolan MD _ ORDERED: LEVEL 4/3 FINAL DIAGNOSIS 1. Duodenum, biopsy: -- Benign [...] duodenum with biopsy to rule out celiac GROSS DESCRIPTION 1. The specimen is received [...] 0.3 x 0.2 x 0.1 cm which CONTINUED ON NEXT PAGE * ML=Testing performed at Main Lab DEPARTMENT OF PATHOLOGY, [address] [place] [address] Joseph Whelan M.D. Director [facility] # [id number] RUN DATE: 07/01/17 [facility] LAB LIVE PAGE 2 Patient: HOMERO ARVIZU [id number] (Continued) GROSS DESCRIPTION (Continued) GROSS DESCRIPTION (Continued) are submitted entirely in one cassette. 3. The specimen is received in formalin labeled, Biopsy [place], and consists of a 0.7 x 0.6 x 0.1 cm aggregate of ramírez-pink irregular soft tissue fragments which is submitted entirely in one cassette. Signed (signature on file) Dotty Pham MD 1200 END OF REPORT * ML=Testing performed at Main Lab DEPARTMENT OF PATHOLOGY, [address] [place] [address] Joseph Whelan M.D. Director [facility] # [id number] SEE RESULT BELOW Name: HOMERO ARVIZU : [address]: Clare Bland DO Acct: [id number] Unit: [id number] AGE: 47 Location: ENDO Re06/30/17 SEX: M Status: DEP REF SPEC: [id number] COLLINS: 06/30/17- SUBM DR: Clare Bland DO REQ: [id number] RECD: 06/30/17 STATUS: ADELAIDE RAO DR: Derick Nolan MD [...] performed at Main Lab DEPARTMENT OF PATHOLOGY, [address] [place] [address] Joseph Whelan M.D. Director [facility] # [id number] RUN DATE: 07/05/17 [facility] LAB LIVE PAGE 2 Patient: HOMERO ARVIZU [id number] (Continued) GROSS DESCRIPTION (Continued) GROSS DESCRIPTION 1. [...] performed at Main Lab DEPARTMENT OF PATHOLOGY, [address] [place] [address] Joseph Whelan M.D. Director [facility] # [id number] SEE RESULT BELOW Name: HOMERO ARVIZU : [address]: Clare Bland DO Acct: [id number] Unit: [id number] AGE: 47 Location: [facility] Re06/30/17 SEX: M Status: DEP REF SPEC: [id number] COLLINS: 06/30/17- SUBM DR: Clare Bland DO REQ: [id number] RECD: 06/30/17 STATUS: ADELAIDE RAO DR: Derick Nolan MD [...] performed at Main Lab DEPARTMENT OF PATHOLOGY, [address] [place] [address] Joseph Whelan M.D. Director [facility] # [id number] RUN DATE: 07/05/17 [facility] LAB LIVE PAGE 2 Patient: ATTILAHOMERO Gross [id number] (Continued) GROSS DESCRIPTION (Continued) GROSS DESCRIPTION 1. [...] performed at Main Lab DEPARTMENT OF PATHOLOGY, [address] [place] [address] Joseph Whelan M.D. Director [facility] # [id number] Procedures Date Code Description Status 09/29/2010 65055 EGD+Biopsy Single Or Multiple Completed Encounters Type Date Location Provider Dx Diagnosis Office Visit 08/01/2017 Gastroenterology Kristen Ibarra, K22.70 Greenberg's 3:45p Ryan GAO esophagus without dysplasia B96.81 Helicobacter pylori as the cause of diseases classd elsr Office 06/13/2017 Gastroenterromulo Peterson Z01.818 Encounter for Visit 10:00a namita [facility] preprocedural examination K21.9 Gastro-esophageal reflux disease without esophagitis E66.01 Morbid (severe) obesity due to excess calories Z68.41 Body mass index (BMI) 40.0-44.9, adult Office Visit 10/05/2010 Gastroenterology Emmanuel Aldrich 112.9 Candidiasis 10:30a Ryan Flanagan M.D. Unspec Site Office Visit 09/08/2010 Gastroenterology Kristen 578.0 Hematemesis 9:45a SIMA [facility] Plan of Treatment Future Appointment(s):11/23/2018 8:00 am - Lashell Brody MD at [facility]11/21/2018 - SERENA Koch-CR10.13 Epigastric painZ98.84 Bariatric surgery thczuzS68.70 Greenberg's esophagus without njelebffpI29.2 Nausea with vomiting, unspecified
--- OUTSIDE RECORDS SUMMARY | 2018-11-29 19:23 | XMS REPORT | Continuity of Care Document ---
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) 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 Encntr screen for infections w sexl mode of transmiss Encounter for screening for - human immunodeficiency virus Transsexualism 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) 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 Encntr screen for infections [...] infections w sexl mode of transmiss 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) 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 Encounter for screening for - human immunodeficiency virus Hyperkalemia Transsexualism Human immunodeficiency virus - [HIV] counseling Encntr screen for infections w sexl mode of transmiss Encounter for screening for - human immunodeficiency virus 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) 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 Human immunodeficiency virus - [HIV] counseling 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 [facility] [place] [address], [place], [place], [address], [place], [address] [place], [place], [place], [id number], [place] tel:[phone] [facility] Human Mar-2 Familia Mojica. Referring [facility] [place] immunodeficiency [address] Provider: [facility] virus [HIV] 9 [facility], [place], [address], [place], 620 [place], 620 jail [place]. [address] (current) drug St, , [place], therapyEncntr [place], [address]. [id number], infections w [place] sexl mode of tel:[phone] transmissEncount 340993 er for screening for human immunodeficiency virus [facility] Oct- [facility] [place] Marie. [address], [place], [place], [place], [address]. [address] tel:[phone] , [place], [address] [place], [id number], [place] tel:[phone] [facility] Transsexualism Aug- Familia Felixa. Referring [facility] [place] [address] Provider: [address], [place], [address], [place], 620 [place], 620 [place]. [address], St, [place], [place], [id number], [address].Cons [place] ulting tel:[phone] Provider: [phone] [place]SE [place] [facility]. 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 Referring [facility] [place] (current) drug [address] Provider: [facility] therapyEncntr 9 , [place], [place], [address], [place], 620 [place], 620 infections w [place]. [address] sexl mode of St, St, [place], transmissEncount [place], [address]. [id number], for human [place] immunodeficiency tel:[phone] virusman [phone] immunodeficiency virus [HIV] counseling [facility] Jun- Parete [facility] [place] 8 Milka. [address], [place], [place], [address]. [address] tel:+[phone] St, [place], [address] [place], [id number], [place] tel:[phone] [facility] Encounter for Nov- Loida Referring [facility] [place] oth screening Nicolette. 620 Provider: [facility] for malignant [address], [place] neoplasm of [place], [place], [place] J, [place], 620 breast [address], [place]. [address] tel:[phone] [address], St, [place], [address] [place], [address]. [id number], tel:[phone] [place] [phone] tel:[phone] [facility] TranssexualismEn Familia Galina. Referring [facility] [place] docrine [address] Provider: Southern disorder, [address] St, [place], [place], [address], [place], 620 [place], 620 nter for oth [place]. [address] general cnsl and St, St, [place], advice [place], [place], [address]. [id number], ntr screen for [place] infections w tel:[phone] sexl mode of [phone] transmiss [facility] Familia Galina. [facility] [place] [address], [place], [place], [address], [place], [address], [place], [place], [id number], [place] tel:[phone] [facility] Human Oct- Osmin Referring [facility] [place] immunodeficiency 5201 Marie. 620 W Provider: Southern virus [HIV] [address], [place] counselingEncoun [place], [place], [place], [address] [place] [address]. s, [address] screening for tel:[phone] St, [place], human [address] [place], [address]. [id number], virusEncounter tel:[phone] [place] for [phone] tel:[phone] preprocedural [phone] laboratory examinationEncnt r screen for infections w sexl mode of transmiss [facility] Human Feb- Goodreau-Hem Referring [facility] [place] immunodeficiency 4-201 juanita Sueane. Provider: [facility] virus [HIV] 8 [address] Sueane [place] counselingEncntr , [place], [facility], 620 [place], [address]. emmer, [address] infections w tel:[phone] [address], [place] [address] [place], [place], transmissOther [place], [id number], [place], [address]. [place] (current) drug tel:+[phone] tel:[phone] therapyEncounter [phone] for screening for human immunodeficiency virus [facility] Hyperkalemia December- Borglum Referring [facility] [place] 2 Florinda. 620 Provider: Southern [address], [place], [place], [place], [facility], [facility] [address], [place]. [address] tel:[phone] [address], [facility], [address] [place], [address]. [id number], tel:[phone] [place] [phone] tel:[phone] [facility] Transsexualism December- Raphaelidis Referring [facility] [place] 1 Marie. 620 W Provider: [facility] [address], [place], [place], [facility], [facility] [address]. s, [address] tel:[phone] [address], , [place], [address] [place], [address]. [id number], tel:[phone] [place] [phone] tel:[phone] [facility] Human May-0 Raphaelidis Referring [facility] [place] immunodeficiency 4-201 Marie. 620 W Provider: Southern virus [HIV] [address], [place] counselingEncntr [place], [place], [facility] [place], 620 screen [place] [address]. s, [address] infections w tel:[phone], St, [place] [address] [place], [place], [address]. [id number], er for screening tel:[phone] [place] for human [phone] tel:[phone] immunodeficiency [phone] virusOther jail (current) 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 [facility] Human Familia Mjoica. Referring [facility] [place] immunodeficiency 2 [address] Provider: [facility] virus [HIV] 8 St, [place], [place], [address], [place], 620 [place], 620 jail [place]. [address] (current) drug St, , [place], therapyEncntr [place], [address]. [id number], infections w [place] sexl mode of tel:[phone] transmissEncount 138289 er for screening for human immunodeficiency virus [facility] Endocrine Familia Mojica. Referring [facility] [place] disorder, [address] Provider: [facility] unspecifiedTrans 8 St, [place], [place], [address], [place], 620 [place], 620 [place]. [address], St, [place], [place], [address]. [id number], [place] tel:[phone] [facility] Encntr screen Nov-3 Familia Mojica. [facility] [place] for infections w 0 [address] sexl mode of 7 [address], [place], [place], [address], [place], [address], [place], [place], [id number], [place] tel:[phone] [facility] Encounter for Nov-2 Familia Mojica. Referring [facility] [place] preprocedural [address] Provider: [facility] laboratory 7 St, [place], [place], [address], [place], 620 [place], 620 immunodeficiency [place]. [address] virus [HIV] St, St, [place], counselingEncoun [place], [address]. [id number], screening for [place] human tel:[phone] immunodeficiency [phone] virusEncntr screen for infections w sexl mode of transmissEncount er for screening for other viral diseasesTranssex ualismEndocrine disorder, unspecified [facility] May- White Galina. [facility] [place] [address], [place], [place], [address], [place], [address], [place], [place], [id number], [place] tel:[phone] [facility] Human May- Parete [facility] [place] immunodeficiency Milka. [address] virus [HIV] [address], [place] counselingEncoun [place], [facility], [address] for [address]. [address] screening for tel:+[phone] St, [place], human [address] [place], immunodeficiency [id number], virusTranssexual [place] ismEncntr screen tel:+72 for infections w [phone] sexl mode of transmiss [facility] Endocrine Feb- White Galina. [facility] [place] disorder, [address] unspecifiedTrans [address], [place], [place], [address], [facility], 620 mass index (BMI) [place]. [address] 40.0-44.9, adult St, [place], [place], [id number], [place] tel:[phone] [facility] TranssexualismDi Nov- Parete [facility] [place] etary counseling Febia. [address], [place] surveillanceOthe [place], [place], [facility], 620 r specified [address]. [address] counseling tel:+[phone] St, [place], [address] [place], [id number], [place] tel:[phone] [facility] Gender identity Apr-0 Borglum [facility] [place] disorder in [place]. 620 Southern adolescence and [address], [place] adulthoodEndocri [place], [place], [facility], 620 ne disorder, [address], [place]. [address] unspecifiedEleva tel:+[phone] St, [place], [place]al [address] [place], blood-pressure [id number], reading, w/o [place] diagnosis of tel:[phone] htnBody mass 430574 index (BMI) 40.0-44.9, adult [facility] TranssexualismEn Parete [facility] [place] docrine 7-201 Milka. [address] disorder, [address], [place] unspecifiedEleva [place], [place], 620 payal [address]. [address] blood-pressure tel:+[phone] St, [place], [place], [place]/o [address] [place], diagnosis of htn [id number], tel:[phone] Family History Family Member Diagnosis Age At [...] guidance, and completed counseling Appointment OPAL AIKEN BOOKED History Of Present Illness Encounter Date [...] Date No information Medical Equipment Description Device Harmony Device Identifier Effective Dates (start - stop ) Status No information Mental Status Date Cognitive Assessment No information Health Concerns Observation Date No information Concern Status Date No information
--- OUTSIDE RECORDS SUMMARY | 2018-11-29 19:23 | XMS REPORT | Continuity of Care Document ---
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 Encounter for screening for - human immunodeficiency virus Hyperkalemia Transsexualism Human immunodeficiency virus - [HIV] counseling Encntr screen for infections w sexl mode of transmiss Encounter for screening for - human immunodeficiency virus 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 Human immunodeficiency virus - [HIV] counseling Other half-way (current) 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 Encntr screen for infections [...] sexual behavior - Active On PrEP/Started 06/2017 Cvan-yo-wzvmaa transsexual - Active Procedures Procedure Date No information Results Test Name Date and Time Measure Units Reference Range Abnormal Flag Status Comments No information Advance Directives Directive Yes / No Effective Date File Name No information Encounters Encounter Practice Location Reason(s) Diagnoses Date Provider Providers Description For Visit Copied on Encounter [facility] Nov-0 Osmin [facility] [place] Marie. [address], [place], [place], [place], [address]. [address] tel:[phone] , [place], [address] [place], [id number], [place] tel:[phone] [facility] Human Mar-2 [facility]ilia Galina. [facility] [address] Provider: [facility] virus [HIV] 9 , [place], [place], [address], [place], 620 [place], 620 half-way [place]. [address] [place] (current) drug St, , [place], therapyEncntr [place], [address]. [id number], infections w [place] sexl mode of tel:[phone] transmissEncount [phone] er for screening for human immunodeficiency virus [facility] Oct- Osmin [facility] [place] Marie. [address], [place], [place], [address]. [address] tel:+[phone] , [place], [address] [place], [id number], [place] tel:[phone] [facility] Transsexualism Aug- [facility]ilia Mojica. [facility] [address] Provider: [facility] 9 , [place], [place], [address], [place], 620 [place], 620 [place]. [address], St, [place], [place], [id number], [address].Cons [place] ulting tel:[phone] Provider: 398136 [place]SE [place] [facility]. [facility] Other half-way 0 Familia Mojica. Referring [facility] [place] (current) drug [address] Provider: [facility] therapyEncntr 9 St, [place], [place], [address], [place], 620 [place], 620 infections w [place]. [address] sexl mode of St, St, [place], transmissEncount [place], [address]. [id number], for human [place] immunodeficiency tel:[phone] virusHuman 198675 immunodeficiency virus [HIV] counseling [facility] Jun- Parete [facility] [place] 8 Milka. [address], [place], [place], [address]. [address] tel:+[phone] St, [place], [address] [place], [id number], [place] tel:[phone] [facility] Encounter for Nov- Loida Referring [facility] [place] oth screening Nicolette. 620 Provider: [facility] for malignant [address], [place] neoplasm of [place], [place], [place], 620 breast [address], [place]. [address] tel:+[phone] [address], St, [place], [address] [place], [address]. [id number], tel:[phone] [place] [phone] tel:[phone] [facility] TranssexualismEn Familia Mojica. Referring [facility] [place] docrine [address] Provider: [facility] disorder, 8 St, [place], [place], [address], [place], 620 [place], 620 nter for oth [place]. [address] general cnsl and St, St, [place], [place], [place], [address]. [id number], ntr screen for [place] infections w tel:[phone] sexl mode of [phone] transmiss [facility] May- Familia Mojica. [facility] [place] [address], [place], [place], [address], [facility], [address], [place], [place], [id number], [place] tel:[phone] [facility] Human Oct- Raphalmas Referring [facility] [place] immunodeficiency 5 Marie. 620 W Provider: [facility] virus [HIV] [address], [place] counselingEncoun [place], Raphaelidi [facility], [address] [place] for [address]. s, [address] screening for tel:[phone], St, [place], human [address] [place], [place], [address]. [id number], virusEncounter tel:+[phone] [place] for [phone] tel:[phone] preprocedural [id number] laboratory examinationEncnt r screen for infections w sexl mode of transmiss [facility] Human Feb- Goodreau-Hem Referring [facility] [place] immunodeficiency 4-201 juanita Sueane. Provider: [facility] virus [HIV] 8 [address] Sueane [place] counselingEncntr , [place], [facility], 620 [place], [address]. emmer, [address] infections w tel:+[phone] [address], [place], [place] [address] , [place], transmissOther [place], [id number], [place], [address]. [place] (current) drug tel:+[phone] tel:[phone] therapyEncounter [phone] 262[address] for screening for human immunodeficiency virus [facility] Hyperkalemia December- Borglum Referring [facility] [place] 2 [place]. [facility] Provider: Southern [address], [place], [place], [place], [facility], [facility] [address], [place]. [address] tel:+[phone] [address], , [place], [address] [place], [address]. [id number], tel:[phone] [place] [phone] tel:[phone] [facility] Transsexualism December- Raphaelidis Referring [facility] [place] 1 Marie. 620 W Provider: [facility] [address], [place], [place], Raphaelidi [facility], 620 [address]. s, [address] tel:+[phone] [address], , [place], [address] [place], [address]. [id number], tel:+[phone] [place] [phone] tel:[phone] [facility] Human May-0 Raphaelidis Referring [facility] [place] immunodeficiency 4-201 Marie. 620 W Provider: Southern virus [HIV] [address], [place] counselingEncntr [place], [place], [place], 620 screen for [address]. s, [address] infections w tel:+[phone] [address], St, [place], [place] [address] [place], [place], [place], [address]. [id number], er for screening tel:[phone] [place] for human [phone] tel:[phone] immunodeficiency [phone] virusOther half-way (current) 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 [facility] Human Familia Mojica. Referring [facility] [place] immunodeficiency - [address] Provider: [facility] virus [HIV] 8 St, [place], [place], [address], [place], 620 [place], 620 half-way [place]. [address] (current) drug St, , [place], therapyEncntr [place], [address]. [id number], infections w [place] sexl mode of tel:[phone] transmissEncount 236239 er for screening for human immunodeficiency virus [facility] Endocrine Familia Mojica. Referring [facility] [place] disorder, [address] Provider: [facility] unspecifiedTrans 8 St, [place], [place], [address], [place], 620 [place], 620 [place]. [address], St, [place], [place], [address]. [id number], [place] tel:[phone] [facility] Encntr screen Nov-3 Familia Mojica. [facility] [place] for infections w 0 [address] sexl mode of 7 St, [place], [place], [address], [place], [address], [place], [place], [id number], [place] tel:[phone] [facility] Encounter for Nov-2 Familia Mojica. Referring [facility] [place] preprocedural [address] Provider: [facility] laboratory [address] St, [place], [place], [address], [place], 620 [place], 620 immunodeficiency [place]. [address] virus [HIV] St, St, [place], counselingEncoun [place], [place], [address]. [id number], screening for [place] human tel:[phone] immunodeficiency [phone] virusEncntr screen for infections w sexl mode of transmissEncount er for screening for other viral diseasesTranssex ualismEndocrine disorder, unspecified [facility] May- Familia Mojica. [facility] [place] [address], [place], [place], [address], [place], [address], [place], [place], [id number], [place] tel:[phone] [facility] Human May- Parete [facility] [place] immunodeficiency Milka. [address] virus [HIV] [address], [place] counselingEncoun [place], [facility], [address] [place] for [address]. [address] screening for tel:+7 St, [place], human [address] [place], immunodeficiency [id number], virusTranssexual [place] ismEncntr screen tel:+72 for infections w [phone] sexl mode of transmiss [facility] Endocrine Feb- Familia Mojica. [facility] [place] disorder, [address] unspecifiedTrans [address], [place], [place], [address], [place], 620 mass index (BMI) [place]. [address] 40.0-44.9, adult St, [place], [place], [id number], [place] tel:[phone] [facility] TranssexualismDi Nov- Parete [facility] [place] etary counseling Febia. [address], [place] surveillanceOthe [place], [facility], 620 r specified [address]. [address] counseling tel:+[phone] St, [place], [address] [place], [id number], [place] tel:[phone] [facility] Gender identity Apr-0 Borglum [facility] [place] disorder in [place]. 620 [address] adolescence and [address], [place] adulthoodEndocri [place], [facility], 620 ne disorder, [address], [place]. [address] unspecifiedEleva tel:+34831 St, [place], [place] [address] [place], blood-pressure [id number], reading, w/o [place] diagnosis of tel:[phone] htnBody mass 233913 index (BMI) 40.0-44.9, adult [facility] TranssexualismEn Parete [facility] [place] docrine 7-201 Milka. [address] disorder, [address], [place] unspecifiedEleva [place], [place], 620 payal [address]. [address] blood-pressure tel:+[phone] St, [place], reading, w/o [address] [place], diagnosis of htn [id number], tel:[phone] Family History Family Member Diagnosis Age At Onset Mother Cancer, breast 66 Sister Substance abuse Father Brain cancer (Cause Of ) Immunizations Vaccine Date Status Comments No information Payers Payer name Insurance type Covered libertarian ID Authorization(s) No information Social History Type [...] Date No information Medical Equipment Description Device [place] Device Identifier Effective Dates (start - stop ) Status No information Mental Status Date Cognitive Assessment No information Health Concerns Observation Date No information Concern Status Date No information
--- OUTSIDE RECORDS SUMMARY | 2018-11-29 19:23 | XMS REPORT | Continuity of Care Document ---
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 Encounter for screening for - human immunodeficiency virus Hyperkalemia Transsexualism Human immunodeficiency virus - [HIV] counseling Encntr screen for infections w sexl mode of transmiss Encounter for screening for - human immunodeficiency virus 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 Human immunodeficiency virus - [HIV] counseling 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 [facility] [place] [address], [place], [place], [address], [place] [address], [place], [place], [id number], [place] tel:[phone] [facility] Human Mar-2 Familia Mojica. Referring [facility] [place] immunodeficiency [address] Provider: [facility] virus [HIV] 9 [facility], [place], [address], [place], [address] [place], 620 jail [place] (current) drug St, , [place], therapyEncntr [place], [address]. [id number], infections w [place] sexl mode of tel:[phone] transmissEncount [phone] er for screening for human immunodeficiency virus [facility] Oct- [facility] Marie. [address], [place], [place], [address]. [address] tel:[phone] , [place], [address] [place], [id number], [place] tel:[phone] [facility] Transsexualism Aug- Familia Felixa. Referring [facility] [place] [address] Provider: [address], [place], [address], [place], [address] [place], [address] [place], St, [place], [place], [id number], [address].Cons [place] ulting tel:[phone] Provider: [id number] [place]URSE [place] [facility]. 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 Referring [facility] [place] (current) drug [address] Provider: [facility] therapyEncntr 9 , [place], [place], [address], [place], 620 [place], 620 infections w [place]. [address] sexl mode of St, St, [place], transmissEncount [place], [address]. [id number], for human [place] immunodeficiency tel:[phone] virusman [phone] immunodeficiency virus [HIV] counseling [facility] Jun- P[facility]te [facility] [place] 8 [address]. [address], [place], [place], [address]. [address] tel:[phone] St, [place], [address] [place], [id number], [place] tel:[phone] [facility] Encounter for Nov- Loida Referring [facility] [place] oth screening Nicolette. 620 Provider: [facility] for malignant [address], [place] neoplasm of [place], [place], [place], 620 breast [address], [place]. [address] tel:[phone] [address], St, [place], [address] [place], [address]. [id number], tel:[phone] tel:[phone] [facility] TranssexualismEn Familia [place]. Referring [facility] [place] docrine [address] Provider: Southern disorder, [address] St, [place], [place], [address], [place], 620 [place], 620 nter for oth [place]. [address] general cnsl and St, St, [place], advice [place], [place], [place], [address]. [id number], ntr screen for [place] infections w tel:[phone] [place] of [phone] transmiss [facility] Familia Galina. [facility] [place] [address], [place], [place], [address], [place], [address], [place], [place], [id number], [place] tel:[phone] [facility] Human Oct- Osmin Referring [facility] [place] immunodeficiency [address]. [address] W Provider: [place] virus [HIV] [address], [place] counselingEncoun [place], [place], [place], [address] [place] [address]. s, [address] screening for tel:[phone], St, [place], [place] [address] [place], [place], [address]. [id number], virusEncounter tel:[phone] [place] for [phone] tel:[phone] preprocedural [id number] laboratory examinationEncnt r screen for infections w sexl mode of transmiss [facility] Human Feb- Goodreau-Hem Referring [facility] [place] immunodeficiency 4-201 juanita Sueane. Provider: [facility] virus [HIV] 8 [address] [place] counselingEncntr , [place], [place]-[facility], [address] [place], [address]. emmer, [address] infections w tel:[phone] [address], [place], [place] [address] [place], [place], transmissOther [place], [id number], [place], [address]. [place] (current) drug tel:[phone] tel:[phone] therapyEncounter [phone] for screening for human immunodeficiency virus [facility] Hyperkalemia December- Borglum Referring [facility] [place] 2 Florinda. 620 Provider: Southern [address], [place], [place], [place], [facility], [facility] [address], [place]. [address] tel:[phone] [address], [facility], [address] [place], [address]. [id number], tel:[phone] [place] [phone] tel:[phone] [facility] Transsexualism December- Raphaelidis Referring [facility] [place] 1 Marie. [address] W Provider: [facility] [address], [place], [place], [facility], [facility] [address]. s, [address] tel:[phone] [address], , [place], [address] [place], [address]. [id number], tel:[phone] [place] [phone] tel:[phone] [facility] Human May-0 Raphaelidis Referring [facility] [place] immunodeficiency 4-201 Marie. [address] W Provider: [place] virus [HIV] [address], [place] counselingEncntr [place], [place], [facility] [place], 620 [place] [address]. s, [address] infections w tel:[phone], [place], [place] [address] [place], [place], [address]. [id number], er for screening tel:[phone] [place] for human [phone] tel:[phone] immunodeficiency [phone] virusOther jail (current) 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 [facility] Human Familia Mojica. Referring [facility] [place] immunodeficiency 2 [address] Provider: [facility] virus [HIV] 8 St, [place], [place], [address], [place], 620 [place], 620 jail [place]. [address] (current) drug St, , [place], therapyEncntr [place], [address]. [id number], infections w [place] sexl mode of tel:[phone] transmissEncount [phone] er for screening for human immunodeficiency virus [facility] Endocrine Familia Mojica. Referring [facility] [place] disorder, [address] Provider: [facility] unspecifiedTrans 8 St, [place], [place], [address], [place], [place], [address] [place], St, [place], [place], [address]. [id number], [place] tel:[phone] [facility] Encntr screen Nov-3 Familia Mojica. [facility] [place] for infections w 0 [address] sexl mode of [address], [place], [place], [address], [place], [address], [place], [place], [id number], [place] tel:[phone] [facility] Encounter for Nov-2 Familia Mojica. Referring [facility] [place] preprocedural [address] Provider: [facility] laboratory [address], [place], [place], [address], [place], 620 [place], 620 immunodeficiency [place]. [address] virus [HIV] St, St, [place], counselingEncoun [place], [address]. [id number], screening for [place] human tel:[phone] immunodeficiency [phone] virusEncntr screen for infections w sexl mode of transmissEncount er for screening for other viral diseasesTranssex ualismEndocrine disorder, unspecified [facility] May- White [place]. [facility] [place] [address], [place], [place], [address], [place], [address], [place], [place], [id number], [place] tel:[phone] [facility] Human May- Parete [facility] [place] immunodeficiency Milka. [address] virus [HIV] [address], [place] counseling[place]oun [place], [facility], [address] [place] [address]. [address] screening for tel:[phone] St, [place], [place] [address] [place], immunodeficiency [id number], virusTranssexual [place] ismEncntr screen tel:[phone] for infections w [phone] sexl mode of transmiss [facility] Endocrine Feb- White [place]. [facility] [place] disorder, [address] unspecifiedTrans [address], [place], [place] [address], [facility], 620 mass index (BMI) [place]. [address] 40.0-44.9, adult St, [place], [place], [id number], [place] tel:[phone] [facility] TranssexualismDi Nov- Parete [facility] [place] etary counseling Febia. [address], [place] surveillanceOthe [place], [place], [facility], 620 r specified [address]. [address] counseling tel:[phone] St, [place], [address] [place], [id number], [place] tel:[phone] [facility] Gender identity Apr-0 Borglum [facility] [place] disorder in [place]. [address] adolescence and [address], [place] adulthoodEndocri [place], [place], [facility], 620 ne disorder, [address], [place]. [address] unspecifiedEleva tel:[phone] St, [place], [place] [address] [place], blood-pressure [id number], reading, w/o [place] diagnosis of tel:[phone] htnBody mass [phone] index (BMI) 40.0-44.9, adult [facility] TranssexualismEn Parete [facility] [place] docrine 7-201 [place]. [address] disorder, [address], [place] unspecifiedEleva [place], [place], 620 payal [address]. [address] blood-pressure tel:[phone] St, [place], [place], [place] [address] [place], diagnosis of htn [id number], tel:[phone] Family History Family Member Diagnosis Age At [...] Date No information Medical Equipment Description Device Everett Device Identifier Effective Dates (start - stop ) Status No information Mental Status Date Cognitive Assessment No information Health Concerns Observation Date No information Concern Status Date No information
--- OUTSIDE RECORDS SUMMARY | 2018-11-29 19:23 | XMS REPORT | Continuity of Care Document ---
:1970 External Reference #:[id number] Author Name Bianca Tee Care Team Providers Name Role Phone Shahid Villeda III, MD Primary Care Physician Unavailable Payers Date Identification Numbers Payment Provider Subscriber Effective: Policy Number: [id number] [employer] Starr Arvizu 2017 Medicaid PayID: [id number] [address] [address] [place] [address] Expires: 2017 Policy Number: [employer]ential Starr Arvizu [id number] PayID: [id number] [address] [address] [place] [address] Advance Directives Description No Information Available Problems Date Description Provider Status Onset: 06/01/2018 Digestive symptom Kymberly Holguin NP Active Onset: 01/27/2018 Body mass index 30+ - obesity Felecia Maxwell DNP, RN, Active UNDER SHERIFF-BC Onset: 05/23/2017 Obstructive sleep apnea Felecia Maxwell DNP RN, Active syndrome UNDER SHERIFF-BC Onset: 06/01/2018 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 Onset: 07/02/2017 Helicobacter-associated Sunil Sylvester MD Active gastritis Note: standard Prevpac generic sent into pharmacy Jul [address] Bland; ( had been Clotest negative 2010 just after course of unrelated antibiotic) Onset: 05/23/2017 Body mass index 40+ - Felecia Maxwell DNP, RN, Inactive severely obese UNDER SHERIFF-BC Inactive: 01/27/2018 Family History Date Family Member(s) Observation Comments Father due to Brain Cancer () Mother Breast Cancer Social History Type Date Description Comments Sex Male Marital Status Single Lives With Alone Lives With 1 dog Occupation Currently Working Occupation [employer] Tobacco Use Start: Unknown End: Former Cigarette Smoker 35 years Unknown 2 Packs Daily Cigarette Use Quit - Age 41 Smoking Status Reviewed: 11/14/18 Former Cigarette Smoker 35 years 2 Packs Daily ETOH Use Drinks Alcoholic Beverages Occasionally Tobacco Use Start: Unknown End: Patient is a former Unknown smoker Recreational Drug Use Denies Drug Use Exercise Type/Frequency Exercises regularly 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 /2019 s every day for Christiana 1 month M.Aj Estradiol Active Tablets 2mg bid Unknown / Lisinopril Active Tablets 5mg 30tab 1 tab every Shahid E. / s day Delilah Villeda Symbicort Active Aerosol 160-4.5mc 6gm inhale 2 Shahid E. / g/Act puffs twice a Christiana, miladys Bird.Aj Vitamin B1 Active Tablets 100mg 1 by mouth Unknown / every day Vitamin B-12 Active Lozenges 500mcg 1 by mouth Unknown / every day Vitamin D3 Active Tablets 2000Unit 1 by mouth Unknown / every day Breo Ellipta Active Aerosol 200-25mcg take 1 Unknown /0000 /Inh inhaled daily Finasteride Active Tablets 5mg 30tab 1 by mouth Shahid E. / s every day Delilah Villeda Cpap Mask [...] MARIKA Holguin - 7ML your 07/12 physician's /2018 instructions the day before your procedure. split the dose as directed. Spironolactone 00 Hx Tablets 100mg 1 tab bid Unknown /0000 - 07/24 Omeprazole 00 Hx Capsules 40mg 1 tab bid Breiman, [...] Shahid E. /0000 s daily in the [place], - morning M.D. 06/01 Opurity Hx Tablets 1 a day Unknown /0000 - 07/24 Oxycodone HCL Hx Tablets 10mg Take 1 Tablet Unknown /0000 By Mouth - Every 4 To 6 06/04 Hours Needed For Breakthrough P Immunizations CPT Code Status Date Vaccine Reaction Lot # [id number] Given 05/10/2018 Pneumonia Vaccine Pt. tolerated well. [id number] Vital Signs Date Vital Result Comment 11/14/2018 4:02pm Height 65.5 inches 5'5.50" Weight 176.00 lb Heart Rate 61 /min BP Systolic Sitting 105 mmHg BP Diastolic Sitting 66 mmHg O2 % BldC Oximetry 98 % BMI (Body Mass Index) 28.8 kg/m2 10/24/2018 8:57am Height 65.5 inches 5'5.50" Weight [...] H/L Range Note CBC Auto Diff 11/05/2018 [facility] White Blood 12.6 10^3/uL High 3.5-10.[address] [place] [address] [phone] Red Blood Count 4.42 10^6/uL N 4.18-5.48 [...] Blood Cells % 0 Urinalysis Profile 11/05/2018 [facility] Urine Color Colorless [address] [place] [address] [phone] Urine Appearance Clear Urine Specific [place] 1.002 Low 1.010-1.030 Urine pH 7.0 N 5-9 Urine Urobilinogen Negative Negative Urine Ketones Negative Negative Urine Protein Negative Negative Urine Leukocytes Negative Negative Urine Blood Negative Negative Urine Nitrite Negative Negative Urine Bilirubin Negative Negative Urine Glucose Negative Negative Laboratory test 11/05/2018 [facility] Ammonia 42 mcmol/L N 16- [address] [place] [address] [phone] Comp Metabolic Panel 11/05/2018 [facility] Sodium 135 mmol/L N 135-[address] [place] [address] [phone] Potassium 3.7 mmol/L N 3.5-5.0 Chloride 101 [...] 95.7 >60 1 Laboratory test finding 11/05/2018 [facility] Amylase 33 U/L N 29-[address] [place] [address] [phone] Lipase 21 U/L N 11.0-82.0 C Reactive Protein 15.76 mg/L High <8.01 Lactic Acid 0.5 mmol/L N 0.5-2.0 2 CBC Auto Diff 10/04/2018 [facility] White Blood 7.2 10^3/uL N 3.5-10.[address] [place] [address] [phone] Red Blood Count 4.62 10^6/uL N 4.00-5.40 [...] Cells % 0 Comp Metabolic Panel 10/04/2018 [facility] Sodium 138 mmol/L N 135-[address] [place] [address] [phone] Potassium 5.0 mmol/L N 3.5-5.0 Chloride 102 [...] >60 3 Iron & Iron Binding 10/04/2018 [facility] Iron 117 g/dL N 50 -[address] [place] [address] [phone] Unsaturated Iron Binding < 294 g/dL Total Iron Binding Capacity 309 g/dL N 250-450 Transferrin 221 mg/dL N 203-362 % Iron Saturation 38 % N 15-55 Laboratory test 10/04/2018 [facility] Ferritin 101.4 ng/mL N 24-[address] [place] [address] [phone] Folic Acid (Folate) > 20.00 ng/mL >3.99 Vitamin B12 380 pg/mL N 180-514 4 Vitamin D Total 25(Oh) 51.1 ng/mL High 20-50 PTH Related Peptide 0.4 pmol/L <2.0 5 Vitamin E Level 9.3 mg/L 5.5 - 17.0 6 Vitamin B1 (Whole Blood) 194 nmol/L Abnormal 70-180 7 CBC Auto Diff 05/30/2018 [facility] White Blood 10.7 10^3/uL N 3.5-10.[address] [place] [address] [phone] Red Blood Count 4.41 10^6/uL N 4.00-5.40 [...] Cells % 0 Comp Metabolic Panel 05/30/2018 [facility] Sodium 139 mmol/L N 135-[address] [place] [address] [phone] Potassium 4.7 mmol/L N 3.5-5.0 Chloride 103 [...] >60 9 Iron & Iron Binding 05/30/2018 [facility] Iron 144 g/dL N 50 -[address] [place] [address] [phone] Unsaturated Iron Binding 158 g/dL Total Iron Binding Capacity 302 g/dL N 250-450 Transferrin 216 mg/dL N 203-362 % Iron Saturation 48 % N 15-55 Laboratory test 05/30/2018 [facility] Ferritin 98.2 ng/mL N 24 -336 [address] [place] [address] [phone] Folic Acid (Folate) > 20.00 ng/mL >3.99 11 Vitamin B12 366 pg/mL N 180-914 12 Vitamin D Total 25(Oh) 43.0 ng/mL N 20-50 13 Hemoglobin A1c (Glyco HGB) 5.5 % N 4.0-5.6 14 Vitamin B1 (Whole Blood) 274 nmol/L Abnormal 70-180 15 Vitamin E Level 11.7 mg/L 5.5 - 17.0 16 PTH Related Peptide 0.3 pmol/L <2.0 17 CBC Auto Diff 03/21/2018 [facility] White Blood 9.9 10^3/uL N 3.5-10.[address] [place] [address] [phone] Red Blood Count 4.63 10^6/uL N 4.00-5.40 [...] Blood Cells % 0 Laboratory test 03/21/2018 [facility] Ferritin 50.5 ng/mL N 24 -336 18 [address] [place] [address] [phone] Folic Acid (Folate) > 20.00 ng/mL >3.99 19 Vitamin B12 277 pg/mL N 180-914 20 Vitamin D Total 25(Oh) 46.7 ng/mL N 20-50 21 Iron & Iron Binding 03/21/2018 [facility] Iron 94 g/dL N 50- 212 [address] [place] [address] [phone] Unsaturated Iron Binding 222 g/dL Total Iron Binding Capacity 316 g/dL N 250-450 Transferrin 226 mg/dL N 203-362 % Iron Saturation 30 % N 15-55 Comp Metabolic Panel 03/21/2018 [facility] Sodium 137 mmol/L N 135-145 [address] [place] [address] [phone] Potassium 4.2 mmol/L N 3.5-5.0 Chloride 102 [...] >60 Egfr 92.5 >60 22 Inr/Protime 11/30/2017 [facility] Inr 0.86 N 0.77-1.[address] [place] [address] [phone] Laboratory test 11/30/2017 [facility] Partial 30.7 N 26.0- 36.[address] [place] [address] Time PTT [phone] CBC No Diff 11/30/2017 [facility] White Blood 11.0 High 3.5- 10.[address] Count 10^3/[place] [address] [phone] Red Blood Count 5.22 10^6/uL N 4.0-5.4 Hemoglobin 15.6 g/dL N 14.0-18.0 Hematocrit 47 % N 42-52 Mean Corpuscular Volume 90 fL N 80-94 Mean Corpuscular Hemoglobin 30 pg N 27-31 Mean Corpuscular HGB Conc 33 g/dL N 31-36 Red Cell Distribution Width 13 % N 10.5-15 Platelet Count 264 10^3/uL N 150-450 Mean Platelet Volume 9.5 um3 N 7.4-10.4 Basic Metabolic 11/30/2017 [facility] Sodium 137 mmol/L Low 139-[address] [place] [address] [phone] Potassium 4.5 mmol/L N 3.5-5.0 Chloride 100 mmol/L Low 101-111 Co2 Carbon Dioxide 30 mmol/L N 22-32 Anion Gap 7 mmol/L N 2-11 Glucose 87 mg/dL N 70-100 Blood Urea Nitrogen 15 mg/dL N 6-24 Creatinine 1.04 mg/dL N 0.67-1.17 BUN/Creatinine Ratio 14.4 N 8-20 Calcium 10.1 mg/dL N 8.6-10.3 Egfr Non- 75.9 >60 Egfr 97.6 >60 23 Laboratory test 06/30/2017 [facility] Surgical SEE RESULT [address] [place] [place] [address] [phone] 1 Because ethnic data is not always [...] 5 Kidney failure <15 (or dialysis) 2 [facility] Severe Sepsis and Septic Shock [...] and its performance characteristics determined by [facility] in a manner consistent with CLIA requirements. This test has not been cleared or approved by the U.S. Food and Drug Administration. Test Performed by: [facility] [place] [address] 6 ADDITIONAL INFORMATION This test was developed and its performance characteristics determined by [facility] in a manner consistent with CLIA requirements. This test has not been cleared or approved by the U.S. Food and Drug Administration. Test Performed by: [facility] [address] [address] 7 ADDITIONAL INFORMATION This test was developed and its performance characteristics determined by [facility] in a manner consistent with CLIA requirements. This test has not been cleared or approved by the U.S. Food and Drug Administration. Test Performed by: [facility] [place] [address] 8 FASTING 9 Because ethnic data is [...] in selective patients <6.0%. Please refer to [place] [employer] diabetic care guidelines for further information. 15 ADDITIONAL INFORMATION This test was developed and its performance characteristics determined by [facility] in a manner consistent with CLIA requirements. This test has not been cleared or approved by the U.S. Food and Drug Administration. Test Performed by: [facility] [address] [address] 16 ADDITIONAL INFORMATION This test was developed and its performance characteristics determined by [facility] in a manner consistent with CLIA requirements. This test has not been cleared or approved by the U.S. Food and Drug Administration. Test Performed by: [facility] [address] [address] 17 ADDITIONAL INFORMATION This test was developed and its performance characteristics determined by [facility] in a manner consistent with CLIA requirements. This test has not been cleared or approved by the U.S. Food and Drug Administration. Test Performed by: [facility] [address] [address] 18 FASTING 19 FASTING 20 Normal Range [...] [address]: Clare Bland DO Acct: [id number] Unit: [id number] AGE: 47 Location: [facility] Re06/30/17 SEX: M Status: DEP REF SPEC: [id number] COLLINS: 06/30/17- SUBM DR: Clare Bland DO REQ: [id number] RECD: 06/30/179 STATUS: ADELAIDE RAO DR: Derick Nolan MD [...] performed at Main Lab DEPARTMENT OF PATHOLOGY, [address] [place] [address] Joseph Whelan M.D. Director [facility] # [id number] RUN DATE: 07/05/17 [facility] LAB LIVE PAGE 2 Patient: JANESSAHOMERO DEAN [id number] (Continued) GROSS DESCRIPTION (Continued) GROSS DESCRIPTION 1. [...] performed at Main Lab DEPARTMENT OF PATHOLOGY, [address] [place] [address] Joseph Whelan M.D. Director [facility] # [id number] Procedures Date Code Description Status 07/11/2018 38953161 Mammogram Completed 06/19/2018 42357 Colonoscopy Flexible Diagnostic Completed 06/19/2018 09672 Endoscopy Upper GI Biopsy Completed 11/30/2017 98066 EKG, Interpretation Only Completed 10/11/2017 52445 Polysomnography Sleep Staging 4+ Parameters W/Cpap Completed 06/30/2017 91193 Endoscopy Upper GI Biopsy Completed 05/11/2017 16284 Polysomnography Sleep Staging 4+ Parameters W/Cpap Completed Encounters Type Date Location Provider Dx Diagnosis Office Visit 10/24/2018 [facility] [place] G47.33 Obstructive sleep 11:00a [facility] Berry apnea (adult) [facility] (pediatric) Z98.84 Bariatric surgery status Z68.29 Body mass index (BMI) 29.0-29.9, adult Office Visit 07/25/2018 [facility] G47.33 Obstructive sleep 9:45a [facility] Maxwell, RN, apnea (adult) [facility] UNDER SHERIFF- (pediatric) E66.9 Obesity, unspecified Z68.31 Body mass index (BMI) 31.0-31.9, adult Office Visit 07/12/2018 [facility] Gastroenterology Kymberly D64.9 Anemia, 8:45a MARIKA Holguin unspecified Z98.84 Bariatric surgery status Office Visit 06/01/2018 10:00a [facility] Gastroenterology Kymberly R19.4 Change in MARIKA Holguin bowel habit Office Visit 05/10/2018 10:20a [facility] Internal Medicine Shahid Meier Z00.00 Bimalntr janessa Villeda M.D. general adult medical exam w/o abnormal findings I10 Essential (primary) hypertension K21.9 Gastro-esophageal reflux disease without esophagitis G47.33 Obstructive sleep apnea (adult) (pediatric) J45.909 Unspecified asthma, uncomplicated Z12.11 Encounter for screening for malignant neoplasm of colon Z23 Encounter for immunization Office Visit 01/27/2018 [facility] G47.33 Obstructive sleep 9:45a [facility] Maxwell RN, apnea (adult) [facility] UNDER SHERIFF-BC (pediatric) E66.9 Obesity, unspecified Z68.35 Body mass index (BMI) 35.0-35.9, adult Office Visit 10/27/2017 [facility] G47.33 Obstructive sleep 1:00p [facility] Maxwell RN, apnea (adult) [facility] UND[facility]ERIFF-BC (pediatric) E66.01 Morbid (severe) obesity due to excess calories Z68.41 Body mass index (BMI) 40.0-44.9, adult Office Visit 09/12/2017 [facility] G47.33 Obstructive sleep 9:15a [facility] Maxwell RN, apnea (adult) [facility] UND[facility]ERIFF-BC (pediatric) Z68.41 Body mass index (BMI) 40.0-44.9, adult Office Visit 05/23/2017 [facility] G47.33 Obstructive sleep 11:30a [facility] Maxwell RN, apnea (adult) [facility] UND[facility] SHERIFF-[facility] (pediatric) E66.09 Other obesity due to excess calories Z68.41 Body mass index (BMI) 40.0-44.9, adult Office Visit 02/28/2017 8:00a [facility] Ofelia Abarca, R06.83 [facility] E66.09 Other obesity due to excess calories Plan of Treatment Future Appointment(s):01/23/2019 2:00 pm - Felecia Maxwell DNP, RN, UND[facility] at [facility]10/24/2018 - [place] [facility] NPG47.33 Obstructive sleep apnea (adult) (pediatric)Follow up:2 months, NPSG priorRecommendations:If you have any sleepiness while driving you MUST avoid operating a vehicle or machinery. If you have difficulty with your equipment, or need to replace your mask or hoses, please contact your homecare agency. If you have any further questions, please call the [facility] at [phone] Bariatric surgery pajrhnF33.29 Body mass index (BMI) 29.0-29.9, adultRecommendations:Great work on the weight loss!
[2018-11-29 19:58] VITALS: BP 103/74
== END 2018-11-29 19:57 | disposition home or self-care (01) ==
LOC: ED 19:01
DX: K91.841 Postprocedural hemorrhage of a digestive system organ or structure following other procedure (principal); E11.9 Type 2 diabetes mellitus without complications; D75.0 Familial erythrocytosis; J45.909 Unspecified asthma, uncomplicated; G47.33 Obstructive sleep apnea (adult) (pediatric); Z88.3 Allergy status to other anti-infective agents; Z87.891 Personal history of nicotine dependence; Z79.84 Long term (current) use of oral hypoglycemic drugs; Z79.899 Other long term (current) 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
CPT/HCPCS: 99282

== ENCOUNTER 2019-02-23 23:56 | Emergency (ER) | payer OTHER ==
--- OUTSIDE RECORDS SUMMARY | 2019-02-24 00:21 | XMS REPORT | Continuity of Care Document ---
:1970 Author Organization [facility] Address [address], [place] [id number] Phone Care Team Providers Name Role Phone Livia Roberts NP Unavailable Unavailable Allergies, Adverse Reactions, Alerts Substance Reaction Status Penicillins Anaphylaxis Active Medications Medication Instructions Dosage Effective Dates Status Comments (start - stop) estradiol 0.1 apply 2 patch by 2 patch - Active mg/24 hr transdermal route semiweekly 2 times every week transdermal patch Truvada 200 mg-300 TAKE 1 TABLET BY - Active mg tablet MOUTH EVERY DAY BD Luer-Dl Use as directed to - Active Syringe 1 mL 20 draw up estradiol gauge x 1" needle (disp) 23 Use as directed to - Active gauge x 1" inject estradiol IM finasteride 5 mg take 1 tablet by 5 MG - Active tablet oral route every day Vitamin B-1 250 mg - Active tablet PANTOPRAZOLE Not Available - Active SODIUM (unknown strength) VITAMIN B-12 Not Available - Active (unknown strength) LISINOPRIL-HYDROCH Not Available - Active LOROTHIAZIDE (unknown strength) estradiol 0.1 apply 2 patch by 2 patch - No Longer mg/24 hr transdermal route Active semiweekly 2 times every week transdermal patch Problems Condition Effective Dates Clinical Status Comments (start - stop) Body mass index (BMI) - 40.0-44.9, adult Human immunodeficiency virus - [HIV] counseling Transsexualism Endocrine disorder, unspecified Human immunodeficiency virus - [HIV] counseling Endocrine disorder, unspecified Transsexualism Human immunodeficiency virus - [HIV] counseling [facility] [place] 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 Encntr screen for infections w sexl mode of transmiss Encounter for screening for - human immunodeficiency virus Transsexualism 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 Encntr screen for infections [...] infections w sexl mode of transmiss [facility] 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 Encounter for screening for - human immunodeficiency virus Hyperkalemia Transsexualism Human immunodeficiency virus - [HIV] counseling Encntr screen for infections w sexl mode of transmiss Encounter for screening for - human immunodeficiency virus 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 Human immunodeficiency virus - [HIV] counseling [facility] [place] [facility] 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 Encntr screen for infections [...] sexual behavior - Active On PrEP/Started 06/2017 [id number] transsexual - Active Procedures Procedure Date No information Results Test Name Date and Time Measure Units Reference Range Abnormal Flag Status Comments No information Advance Directives Directive Yes / No Effective Date File Name No information Encounters Encounter Practice Location Reason(s) Diagnoses Date Provider Providers Description For Visit Copied on Encounter [facility] [place] juanita Sueane. Southern [address], [place], [facility], [address] [place], [address]. [address] tel:[phone] , [place], [address] [place], [id number], [place] tel:[phone] [facility] Familia Mojica. [facility] [place] [address] , [place], [place], [address], [facility], [facility] [place]. [address], [place], [place], [id number], [place] tel:[phone] [facility] Human Familia Mojica. Referring [facility] [place] immunodeficiency [address] Provider: Southern virus [HIV] [address], [place], [place], [address], [place], [address] [facility], [facility] exualismEndocrin [place]. [address] e disorder, St, St, [place], unspecified [place], [address]. [id number], [place] tel:[phone] [facility] Human Osmin Referring [facility] [place] immunodeficiency [address]. [address] W Provider: Southern virus [HIV] [address], [place], Ezekiel [facility], [facility] [place] [address]. s, [address] tel:[address], , [place], [address] [place], [address]. [id number], tel:[phone] [place] [phone] tel:[phone] [facility] Nov-2 Familia Mojica. [facility] [place] [address], [place], [place], [address], [place], [address] [place], [place], [place], [id number], [place] tel:[phone] [facility] Endocrine Nov-0 Familia Mojica. Referring [facility] [place] disorder, [address] Provider: [facility] unspecifiedTrans [address], [place], [place], [address], [place], [address] [place], 620 [place]. [address], St, [place], [place], [address]. [id number], [place] tel:[phone] [facility] Human Mar-2 Familia Mojica. 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 [address] [place] (current) drug St, St, [place], therapyEncntr [place], [address]. [id number], infections w [place] sexl mode of tel:[phone] transmissEncount [phone] er for screening for human immunodeficiency virus [facility] Transsexualism Familia Mojica. Referring [facility] [place] [address] Provider: [facility] [address], [place], [place], [address], [place], 620 [place], [address] [place]. [address], St, [place], [place], [id number], [address].Cons [place] ulting tel:[phone] Provider: [id number] NURSE [place] [facility]. [facility] Familia Mojica. Referring [facility] [place] (current) drug [address] Provider: [facility] therapyEncntr [address], [place], [place], [address], [place], 620 [place], 620 infections w [place]. [address] [place] sexl mode of St, St, [place], transmissEncount [place], [place], [address]. [id number], for human [place] immunodeficiency tel:[phone] virusman [phone] immunodeficiency virus [HIV] counseling [facility] Encounter for Loida Referring [facility] [place] oth screening Nicolette. 620 Provider: Hailey for malignant [address], [place] neoplasm of [place], [place], [place] J, [place], 620 breast [address], [place]. [address] tel:[phone] [address], St, [place], [address] [place], [place], [address]. [id number], tel:[phone] [place] [phone] tel:[phone] [facility] TranssexualismEn Jun- [place]. Referring [facility] [place] docrine [address] Provider: Hailey disorder, [address] St, [place], [place], [address], [place], 620 [place], 620 nter for oth [place]. [address] general cnsl and St, St, [place], advice [place], [place], [place], [address]. [id number], ntr screen for [place] infections w tel:[phone] sexl mode of [phone] transmiss [facility] [place]. [facility] [place] [address], [place], [place], [address], [place], [address], [place], [place], [id number], [place] tel:[phone] [facility] Human May- Raphaelidis Referring [facility] [place] immunodeficiency [address]. [address] W Provider: Southern virus [HIV] [address], [place] counselingEncoun [place], Raphaelidi [facility], [address] [place] [address]. s, [address] screening for tel:[phone] [address], St, [place] [address] [place], [place], [place], [address]. [id number], virusEncounter tel:[phone] [place] for [phone] tel:[phone] preprocedural [id number] laboratory examinationEncnt r screen for infections w sexl mode of transmiss [facility] Human Feb- [facility] Referring [facility] [place] immunodeficiency 4-201 juanita Sueane. Provider: Southern virus [HIV] 8 [address] Sue[place] counselingEncntr , [place], [facility], [address] [place], [address]. emmer, [address] infections w tel:[phone], [place] [address] [place], [place], transmissOther [place], [id number], [place] [address]. [place] (current) drug tel:[phone] tel:[phone] therapyEncounter [phone] for screening for human immunodeficiency virus [facility] Hyperkalemia May-2 Borglum Referring [facility] [place] 2-201 [place]. 620 Provider: Southern [address], [place], [place], [place], [facility], [facility] [place] [address], [place]. [address] tel:+[address], , [place], [address] [place], [address]. [id number], tel:[phone] tel: [phone] [facility] Transsexualism May-1 Raphaelidis Referring [facility] [place] 1-201 Marie. 620 W Provider: Southern [address], [place], [place], [facility], [facility] [place] [place] [address]. s, [address] tel:[phone], , [place], [address] [place], [address]. [id number], tel:[phone] [place] [phone] tel: [phone] [facility] Human May-0 Raphaelidis Referring [facility] [place] immunodeficiency 4-201 Marie. 620 W Provider: Southern virus [HIV] [address], [place] counselingEncntr [place], [facility], [facility] [place] [address]. s, [address] infections w tel:[phone], [place], [place], [place] [address] [place], [place], [place], [address]. [id number], er for screening tel:+[phone] [place] for human [phone] tel:[phone] immunodeficiency [phone] virusOther [facility] 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 [facility] Human Familia Mojica. 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 [address] [place] (current) drug St, St, [place], therapyEncntr [place], [address]. [id number], infections w [place] sexl mode of tel:[phone] transmissEncount [phone] er for screening for human immunodeficiency virus [facility] Endocrine Familia Mojica. Referring [facility] [place] disorder, [address] Provider: [facility] UCLATrans [address], [place], [place], [address], [place], 620 [place], 620 [place]. [address], St, [place], [place], [address]. [id number], [place] tel:[phone] [facility] Encntr screen Familia Mojica. [facility] [place] for infections w 0 [address] Southern sexl mode of [address], [place], [place] [address], [place], [address], [place], [place], [id number], [place] tel:[phone] [facility] Encounter for Familia Mojica. Referring [facility] [place] preprocedural [address] Provider: [facility] laboratory [address], [place], [place], [address], [place], 620 [place], 620 immunodeficiency [place]. [address] [place] virus [HIV] St, St, [place], counselingEncoun [place], [place], [address]. [id number], screening for [place] human tel:[phone] immunodeficiency [phone] virusEncntr screen for infections w sexl mode of transmissEncount er for screening for other viral diseasesTranssex ualismEndocrine disorder, unspecified [facility] Familia Mojica. [facility] [place] 3- [address], [place], [place], [address], [place], [address], [place], [place], [id number], [place] tel:[phone] [facility] Human P[facility]te [facility] [place] immunodeficiency Febia. 620 W [place] virus [HIV] [address], [place] counselingEncoun [place], [place], [facility], [address] [place] [address]. [address] screening for tel:[phone] St, [place], [place] [address] [place], immunodeficiency [id number], virusTranssexual [place] ismEncntr screen tel:[phone] for infections w [phone] sexl mode of transmiss [facility] Endocrine Feb- White [place]. [facility] [place] disorder, [address] unspecifiedTrans [address], [place], [place], [address], [place], 620 mass index (BMI) [place]. [address] [place] 40.0-44.9, adult St, [place], [place], [id number], [place] tel:[phone] [facility] TranssexualismDi Nov- P[facility]te [facility] [place] etary counseling . [address] [place] [address], [place] surveillanceOthe [place], [place], [facility], 620 r specified [address]. [address] counseling tel:+[phone] St, [place], [address] [place], [id number], [place] tel:[phone] [facility] Gender identity Apr- Borglum [facility] [place] disorder in [place]. 620 Southern adolescence and [address], [place] adulthoodEndocri [place], [place], [facility], 620 ne disorder, [address], [place]. [address] unspecifiedEleva tel:[phone] St, [place], [place] [address] [place], blood-pressure [id number], reading, w/o [place] diagnosis of tel:[phone] htnBody mass [phone] index (BMI) 40.0-44.9, adult [facility] TranssexualismEn Parete [facility] [place] docrine Febia. [address] Southern disorder, [address], [place] unspecifiedEleva [place], [place], [facility], 620 payal [address]. [address] blood-pressure tel:[phone] St, [place], [place], [place] [address] [place], diagnosis of htn [id number], [place] tel:[phone] Family History Family Member Diagnosis Age At [...] Date No information Medical Equipment Description Device Nome Device Identifier Effective Dates (start - stop ) Status No information Mental Status Date Cognitive Assessment No information Health Concerns Observation Date No information Concern Status Date No information
--- NOTE | 2019-02-24 01:49 | ED ---
Psychiatric Complaint - HPI Summary HPI Summary: This patient is a 48 year old male brought in by 941 presenting to [facility] with a chief complaint of SI. The patient was talking to a friend when he stated he wanted to harm himself. He states he has been drinking tonight. He reports no other medical issues. He states he occasionally has suicidal thoughts and has been recently seeking help from psychiatrists. - History Of Current Complaint Chief Complaint: EDMentalHealth Hx Obtained From: Patient Severity Initially: Mild Severity Currently: Mild Has Suicidal: Reports: Thoughts, With A Plan - Allergies/Home Medications Allergies/Adverse Reactions: Allergies Allergy/AdvReac Type Severity Reaction Status Date / Time amoxicillin [From Augmentin] Allergy Hives Verified 11/29/18 10:16 clavulanic acid Allergy Hives Verified 11/29/18 10:16 [From Augmentin] cillins Allergy anaphylacti Uncoded 11/29/18 10:16 s PMH/Surg Hx/FS Hx/Imm Hx Endocrine/Hematology History: Reports: Hx Blood Disorders - familial polycythemia, Hx Diabetes - TYPE II- ORAL MEDICATION FOR Cardiovascular History: Reports: Hx Hypertension - ON MEDICATION FOR Denies: Hx Pacemaker/ICD, Other Cardiovascular Problems/Disorders Respiratory History: Reports: Hx Asthma, Hx Sleep Apnea - home machine Denies: Other Respiratory Problems/Disorders GI History: Reports: Hx Gastroesophageal Reflux Disease - ROUTINE MEDICATION FOR , Hx Hiatal Hernia - repaired Denies: Other GI Disorders History: Denies: Hx Renal Disease, Other Problems/Disorders Musculoskeletal History: Reports: Hx Back Problems, Other Musculoskeletal History - C4-5 BONE SPUR- HAD SURGERY FOR-10+YEARS AGO Denies: Hx Rheumatoid Arthritis, Hx Osteoporosis Sensory History: Reports: Hx Contacts or Glasses Denies: Hx Hearing Aid Opthamlomology History: Reports: Hx Contacts or Glasses Neurological History: Denies: Hx Dementia, Other Neuro Impairments/Disorders Psychiatric History: Reports: Hx Substance Abuse - crack, quit 30 years agof - Surgical History Surgery Procedure, Year, and Place: neck surgery. "umbillicus was removed" d/t hernia surgery. Hx Anesthesia Reactions: Yes - DIZZINESS AND LIGHTHEADED Infectious Disease History: No Infectious Disease History: Denies: History Other Infectious Disease, Traveled Outside the [place] in Last 30 Days - Family History Known Family History: Positive: Blood Disorder Negative: Respiratory Disease - Social History Alcohol Use: Rare Alcohol Amount: 8 per year Hx Substance Use: No Substance Use Type: Reports: None Substance Use Comment - Amount & Last Used: hx of crack use 30 years ago Hx Tobacco Use: Yes Smoking Status (MU): Former Smoker Amount Used/How Often: 2 PPD X 30 YEARS Have You Smoked in the Last Year: No Review of Systems Negative: Fever Positive: Other - Suicidal ideation All Other Systems Reviewed And Are Negative: Yes Physical Exam - Summary Physical Exam Summary: Appearance: Well-appearing, Well-nourished, lying in bed comfortable Skin: Warm, dry, no obvious rash Eyes: sclera anicteric, no conjunctival pallor ENT: mucous membranes moist Neck: deferred Respiratory: No signs of respiratory distress Cardiovascular: Appears well perfused, pulses are nml Abdomen: deferred Musculoskeletal: Moving all 4 extremities without obvious discomfort Neurological: Awake and alert, mentation is normal, speech is fluent and appropriate Psychiatric: affect is normal, does not appear anxious or depressed Triage Information Reviewed: Yes Vital Signs On Initial Exam: Initial Vitals Temp Pulse Resp BP Pulse Ox 98 F 61 18 114/72 96 02/23/19 23:58 02/23/19 23:58 02/23/19 23:58 02/23/19 23:58 02/23/19 23:58 Vital Signs Reviewed: Yes Diagnostics - Vital Signs Vital Signs Temp Pulse Resp BP Pulse Ox 02/23/19 23:58 98 F 61 18 114/72 96 - Laboratory Result Diagrams: 02/24/19 02:18 02/24/19 02:18 Lab Statement: Any lab studies that have been ordered have been reviewed, and results considered in the medical decision making process. Course/Dx - Course Course Of Treatment: This patient is a 48 year old male brought in by 941 presenting to [facility] with a chief complaint of SI. The patient was talking to a friend when he stated he wanted to harm himself. Patient medically cleared for [facility]. Upon [facility], Dr. Randhawa, psychiatry, discharged the patient with a diagnosis of depression. - Differential Dx/Clinical Impression Provider Diagnosis: Depression Discharge - Sign-Out/Discharge Documenting (check all that apply): Patient Departure - Discharge, per [facility]. Patient Received Moderate/Deep Sedation with Procedure: No - Discharge Plan Condition: Good Disposition: HOME Patient Education Materials: Depression (ED) Referrals: Tawana Young MD [Primary Care Provider] - Additional Instructions: Per completion of a mental health evaluation, you are cleared for release and do not require inpatient psychiatric hospitalization at this time. Please go to nearest emergency room or call 911 if safety concerns arise or condition worsens. Please follow up with your therapist, Marta Fraser Important Phone Numbers: [facility] [phone] Suicide Prevention and Crisis Services........................ [phone] National Suicide Prevention Lifeline............................ 649-400-EDNM (8665) [facility]....................... [phone] Alcoholics Anonymous............................................... [facility].............. [phone] [place] [employer].............................................. [phone] Substance Abuse Treatment Programs [facility] [place] [facility] - Billing Disposition and Condition Condition: GOOD Disposition: Home - Attestation Statements Document Initiated by Getachew: Yes Documenting Scribe: Jorge L Marcial Provider For Whom Getachew is Documenting (Include Credential): Handy Downey MD Scribe Attestation: Jorge L De Anda scribed for Handy Downey MD on 02/24/19 at 0524. Scribe Documentation Reviewed: Yes Provider Attestation: The documentation as recorded by the Jorge L cardoza accurately reflects the service I personally performed and the decisions made by me, Handy Downey MD Status of Scribe Document: Viewed
[2019-02-24 02:26] LABS: ABS Eosinophils 0.2 10^3/ul (0-0.6); ABS Lymphocytes 2.2 10^3/ul (1.0-4.8); ABS Monocytes 0.5 10^3/ul (0-0.8); ABS Neutrophils 3.9 10^3/ul (1.5-7.7); Eosinophil % 3.2 %; Hematocrit 41 % (42-52); Hemoglobin 13.9 g/dL (14.0-18.0); Lymphocyte % 31.6 %; Mean Corpuscular HGB Conc 34 g/dL (31-36); Mean Corpuscular Hemoglobin 31 pg (27-31); Mean Corpuscular Volume 92 fL (80-94); Mean Platelet Volume 8.9 fL (7.4-10.4); Nucleated Red Blood Cells % 0.1; Platelet Count 224 10^3/uL (150-450); Red Blood Count 4.43 10^6 /uL (4.18-5.48); Red Cell Distribution Width 13 % (10-15); White Blood Count 6.9 10^3/uL (3.5-10.8)
[2019-02-24 02:43] LABS: ALT 16 U/L (7-52); AST 16 U/L (13-39); Albumin 3.8 g/dL (3.2-5.2); Albumin/Globulin Ratio 1.6 (1-3); Alkaline Phosphatase 56 U/L (34-104); Anion Gap 8 mmol/L (2-11); BUN/Creatinine Ratio 16.7 (8-20); Blood Urea Nitrogen 16 mg/dL (6-24); CO2 Carbon Dioxide 26 mmol/L (22-32); Calcium 8.9 mg/dL (8.6-10.3); Chloride 107 mmol/L (101-111); EGFR African American 100.3 (>60); EGFR Non-African American 82.9 (>60); Globulin 2.4 g/dL (2-4); Glucose 101 mg/dL (70-100); Potassium 3.9 mmol/L (3.5-5.0); Sodium 141 mmol/L (135-145); Total Protein 6.2 g/dL (6.4-8.9)
[2019-02-24 02:43] LABS: Urine Appearance Clear; Urine Bilirubin Negative (Negative); Urine Blood Negative (Negative); Urine Color Yellow; Urine Glucose Negative (Negative); Urine Ketones Negative (Negative); Urine Nitrite Negative (Negative); Urine Protein Negative (Negative); Urine Specific Gravity 1.014 (1.010-1.030); Urine Urobilinogen Negative (Negative)
[2019-02-24 02:52] LABS: Acetaminophen < 15 mcg/mL; Alcohol 23 mg/dL (<10); Salicylate < 2.50 mg/dL (<30)
[2019-02-24 03:03] LABS: Urine Benzodiazepine Screen None Detected (None Detect); Urine Opiates Screen None Detected (None Detect)
[2019-02-24 03:07] LABS: TSH (Thyroid Stimulating Horm) 2.56 mcIU/mL (0.34-5.60)
[2019-02-24 04:31] VITALS: BP 120/82
== END 2019-02-24 04:30 | disposition home or self-care (01) ==
LOC: ED 23:56
DX: F32.9 Major depressive disorder, single episode, unspecified (principal); R45.851 Suicidal ideations; Z88.0 Allergy status to penicillin; I10 Essential (primary) hypertension; G47.30 Sleep apnea, unspecified; K21.9 Gastro-esophageal reflux disease without esophagitis; Z87.891 Personal history of nicotine dependence; R42 Dizziness and giddiness
CPT/HCPCS: 36415; 80053; 80307; 80320; 80329; 81003; 84443; 85025; 99285; G0480